=== PATIENT | male | born 1950 | race Caucasian/White ===

== ENCOUNTER → 2016-06-30 | Outpatient (CLI) | payer BC, OTHER ==
[~2016-06-30] MED LIST: ACT/45 PO; ALBU1AER9 INH; ATOR-24 PO; BIOT1CAP3; CHOL100010 PO; CHOL100027 PO; CIPR-255 PO; CMD5 PO; COEN100C7; CYAN100073; FLUT1INH3 PO; INSU1INJ23 SQ; INSUINJ SC; LIRA18IN SQ; LISI-461 PO; LISI-725 PO; LSN10 PO; LVNIS120 SQ; METF-384 PO; METR-163 PO; MULT-190 PO; MULT-513 PO; PANT40TA PO; PHN25X PO; PIMO2TAB PO; PRDFOPS OPB; SERT25TA PO; TPRSR/25 PO; VNTHFA/IN INH; WARF5TAB7 PO; [UNRECOGNIZED DRUG - CODE] PO
[2016-07-01 06:20] LABS: ESTIMATED AVERAGE GLUCOSE 192 mg/dl; HA1C FLAG Normal (Normal)
== END | disposition home or self-care (01) ==
LOC: C.LAB1850 14:40
PROVIDERS: ATTEND Nurse Practitioner Adult Health
DX: E11.9 Type 2 diabetes mellitus without complications (principal)

== ENCOUNTER → 2016-07-01 | Outpatient (CLI) | payer BC, OTHER ==
[2016-07-01 10:32] LABS: CHOLESTEROL/HDL RATIO 4.9
== END | disposition home or self-care (01) ==
LOC: C.LAB1850 09:08
PROVIDERS: ATTEND Family Medicine
DX: E78.5 Hyperlipidemia, unspecified (principal)

== ENCOUNTER → 2016-09-15 | Outpatient (CLI) | payer BC, OTHER ==
[~2016-09-15] MED LIST changes: +FURO-85 PO
[2016-09-15 18:15] LABS: ALT/SGPT 18 U/L (12-78); AMYLASE 62 U/L (25-115); AST/SGOT 11 U/L (15-37); BLOOD UREA NITROGEN 17 mg/dl (7-18); BUN/CREATININE RATIO 18.8 (10-20); CALCIUM 9.4 mg/dl (8.5-10.1); CARBON DIOXIDE 33 mmol/L (21-32); CHLORIDE 104 mmol/L (98-107); CREATININE 0.89 mg/dl (0.60-1.40); GLUCOSE 133 mg/dl (70-99); SODIUM 141 mmol/L (136-145)
[2016-09-15 18:17] LABS: ALB/GLOB RATIO 1.2 (0.9-2); ALKALINE PHOSPHATASE 89 U/L (45-117)
== END | disposition home or self-care (01) ==
LOC: C.LAB1850 16:27
PROVIDERS: ATTEND Internal Medicine Endocrinology, Diabetes & Metabolism
DX: E11.9 Type 2 diabetes mellitus without complications (principal); R10.9 Unspecified abdominal pain

== ENCOUNTER 2016-09-16 14:39 | Inpatient (IN) | payer BC, OTHER ==
[~2016-09-16] VITALS: Ht 188 cm; Wt 116.0 kg
[~2016-09-16 14:39] MED LIST changes: -ATOR-24 PO; -BIOT1CAP3; -CHOL100027 PO; -CIPR-255 PO; -CMD5 PO; -COEN100C7; -CYAN100073; -FLUT1INH3 PO; -FURO-85 PO; -INSU1INJ23 SQ; -LIRA18IN SQ; -LISI-461 PO; -LSN10 PO; -LVNIS120 SQ; -METF-384 PO; -METR-163 PO; -MULT-190 PO; -MULT-513 PO; -PANT40TA PO; -PHN25X PO; -PRDFOPS OPB; -SERT25TA PO; -TPRSR/25 PO; -VNTHFA/IN INH; -WARF5TAB7 PO; -[UNRECOGNIZED DRUG - CODE] PO
[2016-09-16] MEDS ORDERED: SODIUM CHLORIDE 0.9% 1000ML 1,000 ML IV STA (15:05)
--- NOTE | 2016-09-16 15:11 | EMERGENCY ROOM VISIT NOTE ---
History Report prepared by Perry: Jemma Aly Under the Supervision of: Dr. Rahul Johnson M.D. First contact with patient: 14:47 Chief Complaint: ABDOMINAL PAIN Stated Complaint: AB PAIN Nursing Triage Summary: PT HERE WITH ABD PAINS, RIGHT MORE THAN LEFT, WITH INCREASED BLOATING AND GAS X A FEW DAYS. PT STATES BECOMING WORSE. SOME NAUSEA. DENIES CONSTIPATION OR DIARRHEA. History of Present Illness The patient is a 66 year old male who presents to the Emergency Room with complaints of constant abdominal pain beginning a few days ago. The patient states that he has been having abdominal pain on both the right and left side with most of his pain being on the right. 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 He complains of bloating , gassiness, and nausea. He denies any vomiting, fever, constipation, and diarrhea. The patient reports that he has not had any changes in bowel movements. He nots that he is on Victoza. Source of History: patient Onset: a few days ago Position: abdomen Timing: constant Associated Symptoms: + nausea, No diarrhea, No fevers Note: He complains of bloating and gassiness. He denies any constipation. Review of Systems See HPI for pertinent positives & negatives. A total of 10 systems reviewed and were otherwise negative. Past Medical & Surgical Medical Problems: (1) Asthma (2) Diabetes (3) Hypertension (4) ITP (idiopathic thrombocytopenic purpura) (5) Pneumonia (6) Pulmonary embolism (7) sigmoid diverticulitis , spleen abscent (8) sigmoid diverticulitis , spleen abscent Surgical Problems: (1) History of cornea transplant (2) History of hernia surgery (3) History of knee replacement Family History Cancer Diabetes mellitus Heart disease Hypertension Social History Smoking Status: Never Smoker Alcohol Use: occasionally Drug Use: none Marital Status: Housing Status: lives with significant other Occupation Status: employed Current/Historical Medications Scheduled Atorvastatin (Lipitor), 40 MG PO DAILY Cholecalciferol (Vitamin D 1000 Unit), 1,000 INTER.UNIT PO DAILY Insulin Isophane (Human) (Humulin N Kwikpen), 18 UNITS SQ HS Liraglutide (Victoza), 1.8 MG SQ DAILY Lisinopril (Lisinopril), 10 MG PO DAILY Metformin Hcl (Glucophage), 1,000 MG PO BID Metoprolol Succinate (Metoprolol Succinate ER), 12.5 MG PO DAILY Multivitamins/Minerals (Mvi With Minerals), 1 TAB PO DAILY Pimozide (Orap), 4 MG PO QAM Prednisolone Acetate (Prednisolone Acetate), 1 DROPS OPB DAILY Scheduled PRN Albuterol Hfa (Ventolin Hfa), 2 PUFFS INH Q4 PRN for SOB/Wheezing Allergies Uncoded Allergies: SNAILS (Allergy, Severe, ANAPHYLAXIS, 09/16/16) Physical Exam Vital Signs Date Time Temp Pulse Resp B/P Pulse Ox O2 Delivery O2 Flow Rate FiO2 09/16/16 17:09 72 16 93 09/16/16 17:05 135/89 09/16/16 16:39 77 95 09/16/16 16:31 129/88 09/16/16 16:09 77 20 95 09/16/16 16:00 127/83 09/16/16 15:39 87 21 95 09/16/16 15:30 141/89 09/16/16 15:21 125/79 09/16/16 15:18 83 09/16/16 14:41 36.6 47 16 140/88 96 Room Air Physical Exam GENERAL: Patient is a healthy-appearing well-nourished HEAD: Normocephalic atraumatic EYES: Ocular movements intact pupils equal and react to light OROPHARYNX mucous membranes are moist no exudates present no erythema or edema present NECK: Supple no nuchal rigidity CHEST: Good equal expansion LUNGS: Clear and equal to auscultation CARDIAC: Normal S1 and S2 ABDOMEN: Soft, no guarding. Tender to the mid umbilicus area. BACK: No CVA tenderness EXTREMITIES: No pain upon palpation normal muscle strength in all groups no clubbing cyanosis or edema NEURO: Patient is following commands is answering questions appropriately. Alert and oriented x3 Cranial Nerves 2-12 grossly intact Medical Decision & Procedures ER Provider Diagnostic Interpretation: CT results as stated below per my review and radiologist interpretation: ABDOMEN AND PELVIS CT WITH IV AND ORAL CONTRAST FINDINGS: The lung bases are clear. No pneumoperitoneum. No pneumatosis. No suspicious lytic or blastic osseous lesions. There is an anterior abdominal wall mesh. Prior splenectomy. The liver, gallbladder, adrenal glands, and pancreas are unremarkable. No retroperitoneal lymphadenopathy. No hydronephrosis. There are 2 left renal hypodense lesions within the largest measuring 5.8 cm. These are consistent with cysts. There is also an exophytic 2.1 cm intermediate density lesion within the right kidney. This does not clearly represent a simple cyst. The bladder is unremarkable. Multiple colonic diverticula. Focal thickening within the proximal sigmoid colon with mild pericolonic fat stranding and an inflamed diverticulum. This is consistent with acute diverticulitis. No perforation or abscess at this time. No evidence for bowel obstruction. IMPRESSION: 1. Acute proximal sigmoid diverticulitis. No perforation or abscess. 2. No evidence for bowel obstruction. 3. A 2.1 cm lesion within the right kidney. This is incompletely characterized on this single phase study and may represent a hyperdense cyst or possibly a solid renal mass. Follow-up nonemergent renal ultrasound should be considered for further evaluation. 4. Splenectomy. Electronically signed by: Andres Weeks M.D. 09/16/2016 5:43 PM Dictated Date/Time: 09/16/2016 5:36 PM Laboratory Results 09/16/16 15:15 Red Blood Count 4.62, Mean Corpuscular Volume 89.4, Mean Corpuscular Hemoglobin 30.7, Mean Corpuscular Hemoglobin Concent 34.4, Mean Platelet Volume 10.5, Neutrophils (%) (Auto) 70.2, Lymphocytes (%) (Auto) 20.6, Monocytes (%) (Auto) 5.7, Eosinophils (%) (Auto) 2.9, Basophils (%) (Auto) 0.3, Neutrophils # (Auto) 8.15, Lymphocytes # (Auto) 2.40, Monocytes # (Auto) 0.66, Eosinophils # (Auto) 0.34, Basophils # (Auto) 0.04 09/16/16 15:15 Test 09/16/16 15:15 White Blood Count 11.63 K/uL (4.8-10.8) Red Blood Count 4.62 M/uL (4.7-6.1) Hemoglobin 14.2 g/dL (14.0-18.0) Hematocrit 41.3 % (42-52) Mean Corpuscular Volume 89.4 fL (80-100) Mean Corpuscular Hemoglobin 30.7 pg (25-34) Mean Corpuscular Hemoglobin Concent 34.4 g/dl (32-36) Platelet Count 118 K/uL (130-400) Mean Platelet Volume 10.5 fL (7.4-10.4) Neutrophils (%) (Auto) 70.2 % Lymphocytes (%) (Auto) 20.6 % Monocytes (%) (Auto) 5.7 % Eosinophils (%) (Auto) 2.9 % Basophils (%) (Auto) 0.3 % Neutrophils # (Auto) 8.15 K/uL (1.4-6.5) Lymphocytes # (Auto) 2.40 K/uL (1.2-3.4) Monocytes # (Auto) 0.66 K/uL (0.11-0.59) Eosinophils # (Auto) 0.34 K/uL (0-0.5) Basophils # (Auto) 0.04 K/uL (0-0.2) RDW Standard Deviation 43.3 fL (36.4-46.3) RDW Coefficient of Variation 13.3 % (11.5-14.5) Immature Granulocyte % (Auto) 0.3 % Immature Granulocyte # (Auto) 0.04 K/uL (0.00-0.02) Urine Color YELLOW Urine Appearance CLEAR (CLEAR) Urine pH 5.5 (4.5-7.5) Urine Specific Bow 1.013 (1.000-1.030) Urine Protein NEG (NEG) Urine Glucose (UA) 2+ (NEG) Urine Ketones NEG (NEG) Urine Occult Blood NEG (NEG) Urine Nitrite NEG (NEG) Urine Bilirubin NEG (NEG) Urine Urobilinogen NEG (NEG) Urine Leukocyte Esterase NEG (NEG) Anion Gap 9.0 mmol/L (3-11) Est Creatinine Clear Calc Drug Dose 100.8 ml/min Estimated GFR () 94.9 Estimated GFR (Non- 81.9 BUN/Creatinine Ratio 14.2 (10-20) Calcium Level 8.7 mg/dl (8.5-10.1) Total Bilirubin 0.5 mg/dl (0.2-1) Direct Bilirubin 0.1 mg/dl (0-0.2) Aspartate Amino Transf (AST/SGOT) 10 U/L (15-37) Alanine Aminotransferase (ALT/SGPT) 14 U/L (12-78) Alkaline Phosphatase 87 U/L (45-117) Total Protein 6.8 gm/dl (6.4-8.2) Albumin 3.5 gm/dl (3.4-5.0) Lipase 217 U/L (73-393) Labs reviewed by ED physician. Medications Administered Medications (Trade) Dose Ordered Sig/Jadon Route Start Time Stop Time Status Last Admin Dose Admin Sodium Chloride (Nss 1000ml) 1,000 ml @ 999 mls/hr Q1H1M STAT IV 09/16/16 15:05 09/16/16 16:05 DC 09/16/16 15:55 999 MLS/HR ED Course 1447: Past medical records reviewed. The patient was evaluated in room B5. A complete history and physical examination was performed. 1505: Sodium Chloride 1000 ml @ 999 mls/hr IV. 1748: Metronidazole 500mg IV, Zosyn IV 4.5gm IV. 175: I discussed the patient's case with Dr. Raphael of [facility], he has agreed to evaluate the patient for further management and care. 180: Upon reexamination the patient is doing well. I discussed results and treatment plan with the patient. He verbalizes agreement and understanding. I spoke with Dr. Raphael from the [facility] Hospitalist Service. The patient will be evaluated for further management. Medical Decision Differential diagnosis: Etiologies such as appendicitis, diverticulitis, PUD, biliary pathology, UTI, pancreatitis, obstruction, mesenteric ischemia, aortic pathology, infections, inflammatory bowel disease, renal colic, as well as others were entertained. This is a 66-year-old male who does not have a spleen who comes to emergency department complaining of abdominal pain. The patient does have an elevation in his blood cell count and is tender on examination. An IV was established, patient given normal saline bolus. The patient's CAT scan is concerning for diverticulitis. Because this patient does not have a spleen I did discuss the case with the hospitalist service who agreed to admit the patient. He was pancultured up and started on Zosyn as well as Flagyl. The patient was in agreement with the treatment plan. Consults Time Called: 1749 Consulting Physician: Dr. Raphael - [facility] Returned Call: 1751 I discussed the patient's case with Dr. Raphael of [facility], he has agreed to evaluate the patient for further management and care. Impression Primary Impression: Diverticulitis Additional Impression: Asplenia Scribe Attestation The scribe's documentation has been prepared under my direction and personally reviewed by me in its entirety. I confirm that the note above accurately reflects all work, treatment, procedures, and medical decision making performed by me. Departure Information Dispostion Being Evaluated By Hospitalist Referrals Abhi Rowell D.O.Int.Med. (PCP) Patient Instructions My [facility] Problem Qualifiers Primary Impression: Diverticulitis Diverticulitis site: unspecified part of intestinal tract Diverticulitis bleeding: unspecified bleeding status Diverticulitis complication: unspecified complication status Qualified Codes: K57.92 - Diverticulitis of intestine, part unspecified, without perforation or abscess without bleeding
[2016-09-16] MEDS ORDERED: CHOL100027 PO (15:13)
[2016-09-16] MEDS ORDERED: INSU1INJ23 SQ (15:13)
[2016-09-16] MEDS ORDERED: VNTHFA/IN INH (15:13)
[2016-09-16] MEDS ORDERED: TPRSR/25 PO (15:17)
[2016-09-16] MEDS ORDERED: LIRA18IN SQ (15:17)
[2016-09-16] MEDS ORDERED: LISI-461 PO (15:17)
[2016-09-16] MEDS ORDERED: PRDFOPS OPB (15:17)
[2016-09-16] MEDS ORDERED: MULT-513 PO (15:17)
[2016-09-16] MEDS ORDERED: OPTIRAY 320 IV PRN (15:30)
[2016-09-16 15:35] LABS: BASO % 0.3 %; BASO ABS # 0.04 K/uL (0-0.2); COMPLETE YES; EOS % 2.9 %; HEMATOCRIT 41.3 % (42-52); IG% 0.3 %; LYMPH % 20.6 %; MEAN CELL VOLUME 89.4 fL (80-100); MEAN CORPUSCULAR HEMOGLOBIN 30.7 pg (25-34); MEAN CORPUSCULAR HGB CONC 34.4 g/dl (32-36); MEAN PLATELET VOLUME 10.5 fL (7.4-10.4); MONO % 5.7 %; NEUT % 70.2 %; PLATELET COUNT 118 K/uL (130-400); RED BLOOD COUNT 4.62 M/uL (4.7-6.1); WHITE BLOOD COUNT 11.63 K/uL (4.8-10.8)
[2016-09-16 15:51] LABS: URINE APPEARANCE CLEAR (CLEAR); URINE BILIRUBIN NEG (NEG); URINE COLOR YELLOW; URINE NITRITE NEG (NEG); URINE PH 5.5 (4.5-7.5); URINE SPECIFIC GRAVITY 1.013 (1.000-1.030); UROBILINOGEN NEG (NEG)
[2016-09-16 15:55] LABS: BUN/CREATININE RATIO 14.2 (10-20); CALCIUM 8.7 mg/dl (8.5-10.1); CREATININE 0.95 mg/dl (0.60-1.40); POTASSIUM 3.7 mmol/L (3.5-5.1)
[2016-09-16 15:58] LABS: MANUAL MICROSCOPIC REQUIRED? NO; REVIEW REQ? NO
[2016-09-16] MEDS ORDERED: METF-384 PO (16:55)
[2016-09-16] MEDS ORDERED: ATOR-24 PO (16:55)
--- NOTE | 2016-09-16 17:44 | DIAGNOSTIC IMAGING REPORT ---
ABDOMEN AND PELVIS CT WITH IV AND ORAL CONTRAST CT DOSE: 1345.99 mGy.cm HISTORY: Pt c/o diffuse abd pain, bloating TECHNIQUE: Multiaxial CT images of the abdomen and pelvis were performed following the use of intravenous and oral contrast. COMPARISON STUDY: None. FINDINGS: The lung bases are clear. No pneumoperitoneum. No pneumatosis. No suspicious lytic or blastic osseous lesions. There is an anterior abdominal wall mesh. Prior splenectomy. The liver, gallbladder, adrenal glands, and pancreas are unremarkable. No retroperitoneal lymphadenopathy. No hydronephrosis. There are 2 left renal hypodense lesions within the largest measuring 5.8 cm. These are consistent with cysts. There is also an exophytic 2.1 cm intermediate density lesion within the right kidney. This does not clearly represent a simple cyst. The bladder is unremarkable. Multiple colonic diverticula. Focal thickening within the proximal sigmoid colon with mild pericolonic fat stranding and an inflamed diverticulum. This is consistent with acute diverticulitis. No perforation or abscess at this time. No evidence for bowel obstruction. IMPRESSION: 1. Acute proximal sigmoid diverticulitis. No perforation or abscess. 2. No evidence for bowel obstruction. 3. A 2.1 cm lesion within the right kidney. This is incompletely characterized on this single phase study and may represent a hyperdense cyst or possibly a solid renal mass. Follow-up nonemergent renal ultrasound should be considered for further evaluation. 4. Splenectomy. Electronically signed by: Andres Weeks M.D. 09/16/2016 5:43 PM Dictated Date/Time: 09/16/2016 5:36 PM
[2016-09-16] MEDS ORDERED: PIPERACILLIN/TAZOBACTAM 4.5 GM/100ML D5W IV STA (17:48)
[2016-09-16] MEDS ORDERED: METRONIDAZOLE 500MG / 100ML NSS IV STA (17:48)
[2016-09-16] MEDS ORDERED: ZOLPIDEM TARTRATE 5 MG TAB PO PRN (18:30)
[2016-09-16] MEDS ORDERED: POLYETHYLENE (MIRALAX) 17 GM PACK PO PRN (18:30)
[2016-09-16] MEDS ORDERED: ERTAPENEM 1 GM ADDVIAL IV ONE (18:30)
[2016-09-16] MEDS ORDERED: MAGNESIUM HYDROXIDE SUSP 30 ML UDC PO PRN (18:30)
[2016-09-16] MEDS ORDERED: ONDANSETRON INJ 2 MG/ML 2 ML VIAL IV PRN (18:30)
[2016-09-16] MEDS ORDERED: ENOXAPARIN 40 MG/0.4 ML SYR SQ SCH (18:30)
[2016-09-16] MEDS ORDERED: ACETAMINOPHEN 325 MG TAB PO PRN (18:30)
[2016-09-16] MEDS ORDERED: ALBUTEROL HFA 8 GM INHALER INH PRN (18:30)
[2016-09-16] MEDS ORDERED: ALUMINUM/MAGNESIUM/SIMETH (MAALOX MAX) 30 ML UDC PO PRN (18:30)
[2016-09-16] MEDS ORDERED: PHARMACY GLYCEMIC MGMT CONSULT PRN (18:40)
[2016-09-16] MEDS ORDERED: GLUCOSE 40% GEL 15 GM TUBE PO PRN (18:45)
[2016-09-16] MEDS ORDERED: GLUCAGON FOR INJ 1 MG VIAL SQ PRN (18:45)
[2016-09-16] MEDS ORDERED: DEXTROSE 50% 50 ML SYR IV PRN (18:45)
[2016-09-16] MEDS ORDERED: GLUCOSE 10 TABS/TUBE PO PRN (18:45)
[2016-09-16 18:51] VITALS: O2SAT 94
--- NOTE | 2016-09-16 18:51 | Progress Note ---
Progress Note Date of Service September 16, 2016. Progress Note sigmoid diverticulitis , spleen absent, [id number]
[2016-09-16 19:40] VITALS: BP 165/94; PULSE 68; TEMP 36.7; Ht 188 cm; Wt 116.0 kg
--- NOTE | 2016-09-16 20:42 | HISTORY & PHYSICAL EXAMINATION ---
DATE OF ADMISSION: 09/16/2016 This is a level 2 inpatient admission, 28 minutes. CHIEF COMPLAINT: Right middle and lower abdominal pain associated with increased bloating for several days, getting worse, associated with nauseation. HISTORY OF PRESENT ILLNESS: The patient is a 66-year-old white male with a significant past medical history of asthma, diabetes, hypertension and idiopathic thrombocytopenic purpura, pneumonia, PE, sigmoid diverticulitis, history of corneal transplantation and knee replacement coming to the hospital Emergency Department because of the above chief complaint. The patient reported constant abdominal pain a few days ago. It has been getting worse, associated with nauseation, no vomiting. History of splenectomy after having ITP, history of diverticulitis and 2 hernia repairs. He reported that he has bloating and nauseation. The patient denied fever or chills. Denied constipation or diarrhea. Denied cough, sputum or shortness of breath. Denied chest pain, palpitation or lower extremity swelling. Denied facial droop, slurry speeches or local weakness. Denied skin rashes. PAST MEDICAL HISTORY: Like I mentioned above. PAST SURGICAL HISTORY: Like I mentioned above. FAMILY HISTORY: Include; cancer, diabetes, hypertension and heart disease. SOCIAL HISTORY: Denied tobacco abuse disorder, alcohol abuse disorder and illicit drug abuse. CURRENT MEDICATIONS: Lipitor 40 mg p.o. daily, vitamin D 1000 international units p.o. daily, NPH 18 units subQ at bedtime, Victoza 1.8 mg subQ daily, lisinopril 10 mg p.o. daily, metformin 1000 mg p.o. b.i.d., metoprolol 12.5 mg p.o. daily, multiple vitamin 1 tab p.o. daily, pimozide 4 mg p.o. q.a.m., prednisone 1 drop OPB daily and albuterol 2 puffs inhaled q. 4 hours p.r.n. for shortness of breath or wheezing. ALLERGIES: TO SNAILS. PHYSICAL EXAMINATION: VITAL SIGNS: Temperature is 36.6, pulse 47 currently is 72, respiratory rate 16 and pulse ox was 96% on room air. GENERAL: The patient is a white male, awake, alert and orientated, conversational and follows all commands with obesity. HEAD: Normocephalic. EYES: Pupils are equal and round, responds to light. EARS: Normal. NOSE: Normal. NECK: Supple. Thyroid, no enlargement. Trachea is midline. HEART: Regular rhythm. S1, S2. LUNGS: Decreased breathing sounds. There were no wheezing, rhonchi or crackles. ABDOMEN: Soft, mid lower abdomen deep tenderness. No rebound. No guarding. Mildly tender in the mid umbilical area. BACK: Bilateral CVA was nontender. EXTREMITIES: Lower extremities, normal strength. There was no clubbing, cyanosis or edema. NEUROLOGIC: Cranial nerves II-XII were intact. There were no local deficits. IMAGING STUDIES: Abdominal CT studies show acute proximal sigmoid diverticulitis. No abscess. No evidence of bowel obstruction. There was a 2.1 cm lesion in the right kidney. The patient had a splenectomy. LABORATORY STUDIES: WBC 11.6, hemoglobin 14, platelets 118. BUN 13 and ASSESSMENT AND PLAN: A 66-year-old white male, with the problems as below: 1. Proximal sigmoid diverticulitis. 2. History of splenectomy. 3. History of thrombotic thrombocytopenic purpura. 4. A 2.1 cm lesion in the right kidney. 5. Diabetes. 6. Hypertension. 7. Asthma. 8. History of pulmonary embolism. PLAN: 1. Because the patient has a history of splenectomy, he is immunocompromised. In that regard, we are not able to assess the severity of the diverticulitis. He may have sepsis but does not spiking fever, Therefore, I will check an ESR and CRP. A blood culture has been sent by the Emergency Room. ED physician has started metronidazole and Zosyn IV. I would say Invanz would be good enough, so I started Invanz IV infusion. We will keep patient n.p.o. except for medication and IV fluid infusion. We will follow up very closely for any signs of worsening abdominal pain or diverticulitis. We will follow on clinical response. For diabetes, we will check hemoglobin A1c. Because he is n.p.o. now, we will cut half dose of NPH, start sliding scales and talk to pharmacy about this. 2. For other medical conditions such as hypertension and dyslipidemia, we will continue current medications. DVT prophylaxis because the patient has a history of ITP. Current platelet level is on the lower side. I will give SCD for DVT prophylaxis. I will not order heparin product for now. GI prophylaxis is covered. [facility]
[2016-09-16] MEDS ORDERED: INSULIN HUMAN NPH SC SCH (21:00)
[2016-09-16] MEDS ORDERED: INSULIN GLARGINE SOLOSTAR 100 UNITS/ML 3 ML PEN SC ONE ×2 (21:00→22:00)
[2016-09-16] MEDS ORDERED: INSULIN ASPART 100 UNITS/ML 3 ML PEN SC SCH (21:00)
[2016-09-16] MEDS: NSS + 20MEQ KCL 1000ML 1,000 ML IV SCH (21:46)
--- NOTE | 2016-09-16 22:03 | Pharmacy Progress Note ---
Glycemic Control Intl Consult Date of Service September 16, 2016. Scope Glycemic Pharmacist consulted by Dr Raphael on 09/16/16 for glycemic control and to write orders per [facility] inpatient glycemic control protocol Objective Weight (Kilograms): 116.000 Accuchecks BSG (last 24hrs): Test 09/16/16 15:15 09/16/16 21:25 Random Glucose 238 mg/dl (70-99) Bedside Glucose 114 mg/dl (70-99) Laboratory Data (last 24hrs) Test 09/16/16 15:15 Anion Gap 9.0 mmol/L BUN/Creatinine Ratio 14.2 Blood Urea Nitrogen 13 mg/dl Creatinine 0.95 mg/dl Potassium Level 3.7 mmol/L Sodium Level 143 mmol/L White Blood Count 11.63 K/uL Red Blood Count 4.62 M/uL Hemoglobin 14.2 g/dL Hematocrit 41.3 % Mean Corpuscular Volume 89.4 fL Mean Corpuscular Hemoglobin 30.7 pg Mean Corpuscular Hemoglobin Concent 34.4 g/dl Platelet Count 118 K/uL Mean Platelet Volume 10.5 fL Neutrophils (%) (Auto) 70.2 % Lymphocytes (%) (Auto) 20.6 % Monocytes (%) (Auto) 5.7 % Eosinophils (%) (Auto) 2.9 % Basophils (%) (Auto) 0.3 % Neutrophils # (Auto) 8.15 K/uL Lymphocytes # (Auto) 2.40 K/uL Monocytes # (Auto) 0.66 K/uL Eosinophils # (Auto) 0.34 K/uL Basophils # (Auto) 0.04 K/uL HbA1c Test 09/16/16 15:15 Recent Pertinent Medications Outpatient Anti-diabetic Regimen: * Insulin NPH 18 units HS * Victoza 1.8mg SC daily * Metformin 1000mg BID * A1c = 8.3 % (06/30/16), new HbA1c pending for 09/16/16 Risk Factors for Insulin Resistance: * Infection: Invanz 1g IV q24; received Zosyn and Flagyl x 1 doses in the ED * IVF: NS+KCl 20mEq @ 100 mL/hr * Diet: NPO Assessment & Plan ASSESSMENT: * ADA & AACE recommend a goal blood sugar range 140-180 mg/dl for the majority of critically ill & non-critically ill patients. However, more stringent targets may be selected in individual cases. * Current HbA1c pending, but diabetes seemed not at goal upon last check 2016. Given his NPO status, will need reduce his outpatient basal regimen by at least 50%. However, since his BSG decr' from 238 to 114 without any insulin , will further reduce and only give 25% of his outpatient basal regimen tonight. Novolog correction scale based on his weight. May need to loosen as appropriate. PLAN FOR INPATIENT GLYCEMIC CONTROL: * Holding outpatient oral diabetes medications * Basal insulin with LANTUS 4 units SQ x 1 * Correctional Insulin with NOVOLOG / REGULAR per scale ACHS or Q6hrs while NPO * Goal Range: Low 120 mg/dL - High 160 mg/dL * Correction Factor: 20 mg/dL/unit * Nutritional / Prandial insulin per carb ratio of 1 unit per 0 grams CHO consumed * Please note that the plan above was derived based on current level of insulin resistance and hospital stress. These recommendations are appropriate for inpatient admission only. Plan of care upon discharge will need to be reassessed to avoid potential outpatient hypo/hyperglycemia. Thank you.
[2016-09-16] MEDS: ERTAPENEM IV 1 GM in SODIUM CHLOR 0.9% AD-VAN 50ML 50 ML IV SCH (22:10)
[2016-09-17 00:58] VITALS: BP 136/83; PULSE 70; TEMP 36.4; O2SAT 94
[2016-09-17] MEDS: INSULIN ASPART 100 UNITS/ML 3 ML PEN SC SCH ×5 (06:00→22:16)
[2016-09-17] MEDS: NSS + 20MEQ KCL 1000ML 1,000 ML IV SCH ×2 (06:04→19:26)
[2016-09-17 07:19] LABS: ESTIMATED AVERAGE GLUCOSE 151 mg/dl; HA1C FLAG Normal (Normal)
[2016-09-17 07:23] VITALS: BP 154/82; PULSE 65; TEMP 36.6; O2SAT 93
[2016-09-17] MEDS: PrednisoLONE ACET 1% OP SUSP 5 ML BTL OPB SCH (08:13)
[2016-09-17] MEDS: METOPROLOL SUCC 25MG EXT REL TAB PO SCH (08:13)
[2016-09-17] MEDS: CHOLECALCIFEROL 1000 INTER.UNIT TAB PO SCH (08:14)
[2016-09-17] MEDS: ATORVASTATIN 40 MG TAB PO SCH (08:14)
[2016-09-17] MEDS: LISINOPRIL 10 MG TAB PO SCH (08:15)
[2016-09-17] MEDS: CEROVITE ADV FORMULA TAB PO SCH (08:15)
[2016-09-17] MEDS ORDERED: NON-FORMULARY MEDICATION (Liraglutide (Victoza) 1.8 MG) SQ SCH (09:00)
[2016-09-17 10:13] LABS: BASO % 0.5 %; BASO ABS # 0.04 K/uL (0-0.2); COMPLETE YES; EOS % 3.6 %; HEMATOCRIT 43.2 % (42-52); IG% 0.2 %; LYMPH % 26.4 %; LYMPH ABS # 2.33 K/uL (1.2-3.4); MEAN CELL VOLUME 89.8 fL (80-100); MEAN CORPUSCULAR HEMOGLOBIN 30.4 pg (25-34); MEAN CORPUSCULAR HGB CONC 33.8 g/dl (32-36); MEAN PLATELET VOLUME 9.9 fL (7.4-10.4); MONO % 6.9 %; NEUT % 62.4 %; PLATELET COUNT 108 K/uL (130-400); RED BLOOD COUNT 4.81 M/uL (4.7-6.1); WHITE BLOOD COUNT 8.83 K/uL (4.8-10.8)
--- NOTE | 2016-09-17 12:04 | Gastrointestinal Consultation ---
Gastrointestinal Consultation Date of Consultation: September 17, 2016 History of Present Illness Patient is a 66 year old male who presented to the ER yesterday with a 2 day hx of generalized but worse left lower quadrant abdominal pain. Pain was sharp in nature and colicky in quality. Similiar to pain about 15 years ago upon first dx of sigmoid diverticulitis. No fevers, chills, blood in stool, or diarrhea. No hx to suggest ischemia. Upon presentation to the ER he underwent CT scanning that revealed proximal sigmoid diverticulitis. He was started on ABX with Invanz, and given pain control. Today he feels well, with no to minimal pain only located in the llq. Passing flatus. No fevers and relaxing comfortable. WBC count has declined and last colonoscopy was several years ago, but has had self reported polyps in past. Still NPO Past Medical/Surgical History Medical Problems: (1) Asplenia Status: Acute (2) Diverticulitis Status: Acute Family History Cancer Diabetes mellitus Heart disease Hypertension Social History Smoking Status: Never Smoker Alcohol Use: occasionally Drug Use: none Marital Status: Housing Status: lives with significant other Occupation Status: employed Allergies Uncoded Allergies: SNAILS (Allergy, Severe, ANAPHYLAXIS, 09/16/16) Current Medications Home Meds and Scripts Medications Dose Route/Sig Max Daily Dose Days Date Category Mvi With Minerals (Multivitamins/Minerals) Tab 1 Tab PO DAILY 09/16/16 Reported Victoza (Liraglutide) 18 Mg/3 Ml Inj 1.8 Mg SQ DAILY 09/16/16 Reported Metoprolol Succinate ER (Metoprolol Succinate) 25 Mg Tabcr 12.5 Mg PO DAILY 09/16/16 Reported Prednisolone Acetate 75 Drops/5 Ml Susp 1 Drops OPB DAILY 09/16/16 Reported Lisinopril 10 Mg Tab 10 Mg PO DAILY 09/16/16 Reported Humulin N Kwikpen (Insulin Isophane (Human)) 100 Unit/Ml Inj 18 Units SQ HS 09/16/16 Reported Ventolin Hfa (Albuterol) 200 Puffs/92212 Mcg Aers 2 Puffs INH Q4 PRN 09/16/16 Reported Vitamin D 1000 Unit (Cholecalciferol) 1,000 Unit Cap 1,000 Inter.unit PO DAILY 09/16/16 Reported Glucophage (Metformin Hcl) 1,000 Mg Tab 1,000 Mg PO BID 12/18/13 Reported Lipitor (Atorvastatin Calcium) 40 Mg Tab 40 Mg PO DAILY 12/18/13 Reported Orap (Pimozide) 2 Mg Tab 4 Mg PO QAM 12/18/13 Reported Review of Systems Constitutional: No chills, No fatigue, No fever, No problem reported, No see HPI, No sweats, No weakness, No weight loss Eyes: No diplopia, No discharge, No eye pain, No problem reported, No redness, No see HPI, No worsening of vision ENT: No dental problems, No hearing loss, No nasal symptoms, No pain on swallowing, No problem reported, No see HPI, No sore throat, No tinnitus, No trouble swallowing, No unusual epistaxis Respiratory: No cough, No dyspnea at rest, No dyspnea on exertion, No hemoptysis, No problem reported, No see HPI, No shortness of breath, No sputum, No wheezing Cardiac: No PND, No chest pain, No claudication, No edema, No orthopnea, No palpitations, No problem reported, No see HPI Abdomen: + see HPI Musculoskeletal: No calf pain, No joint pain, No muscle pain, No problem reported, No see HPI, No swelling Male : No dysuria, No hematuria, No incontinence, No nocturia more than once/ night, No problem reported, No see HPI, No sexual dysfunction, No slowing stream , No urinary frequency Physical Exam Date Time Temp Pulse Resp B/P Pulse Ox O2 Delivery O2 Flow Rate FiO2 09/17/16 08:10 Room Air 09/17/16 07:23 36.6 65 17 154/82 93 Room Air 09/17/16 00:58 36.4 70 18 136/83 94 Room Air 09/17/16 00:35 Room Air 09/16/16 19:44 Room Air 09/16/16 19:40 36.7 68 16 165/94 Room Air 09/16/16 18:51 73 142/84 94 09/16/16 17:09 72 16 93 09/16/16 17:05 135/89 09/16/16 16:39 77 95 09/16/16 16:31 129/88 09/16/16 16:09 77 20 95 09/16/16 16:00 127/83 09/16/16 15:39 87 21 95 09/16/16 15:30 141/89 09/16/16 15:21 125/79 09/16/16 15:18 83 09/16/16 14:41 36.6 47 16 140/88 96 Room Air General Appearance: WD/WN Eyes: normal inspection ENT: normal ENT inspection Neck: supple Respiratory/Chest: chest non-tender, lungs clear Cardiovascular: regular rate, rhythm Abdomen: normal bowel sounds, soft, + pertinent finding (minimal tenderness in the llq) Extremities: normal range of motion Neurologic/Psych: input output clerk II-XII nml as tested Laboratory Results Last 24 Hours Test 09/16/16 15:15 09/16/16 21:25 09/17/16 00:35 09/17/16 06:02 White Blood Count 11.63 K/uL Red Blood Count 4.62 M/uL Hemoglobin 14.2 g/dL Hematocrit 41.3 % Mean Corpuscular Volume 89.4 fL Mean Corpuscular Hemoglobin 30.7 pg Mean Corpuscular Hemoglobin Concent 34.4 g/dl Platelet Count 118 K/uL Mean Platelet Volume 10.5 fL Neutrophils (%) (Auto) 70.2 % Lymphocytes (%) (Auto) 20.6 % Monocytes (%) (Auto) 5.7 % Eosinophils (%) (Auto) 2.9 % Basophils (%) (Auto) 0.3 % Neutrophils # (Auto) 8.15 K/uL Lymphocytes # (Auto) 2.40 K/uL Monocytes # (Auto) 0.66 K/uL Eosinophils # (Auto) 0.34 K/uL Basophils # (Auto) 0.04 K/uL RDW Standard Deviation 43.3 fL RDW Coefficient of Variation 13.3 % Immature Granulocyte % (Auto) 0.3 % Immature Granulocyte # (Auto) 0.04 K/uL Erythrocyte Sedimentation Rate 9 mm/hr Urine Color YELLOW Urine Appearance CLEAR Urine pH 5.5 Urine Specific [place] 1.013 Urine Protein NEG Urine Glucose (UA) 2+ Urine Ketones NEG Urine Occult Blood NEG Urine Nitrite NEG Urine Bilirubin NEG Urine Urobilinogen NEG Urine Leukocyte Esterase NEG Sodium Level 143 mmol/L Potassium Level 3.7 mmol/L Chloride Level 106 mmol/L Carbon Dioxide Level 28 mmol/L Anion Gap 9.0 mmol/L Blood Urea Nitrogen 13 mg/dl Creatinine 0.95 mg/dl Est Creatinine Clear Calc Drug Dose 100.8 ml/min Estimated GFR () 94.9 Estimated GFR (Non- 81.9 BUN/Creatinine Ratio 14.2 Random Glucose 238 mg/dl Estimated Average Glucose 151 mg/dl Hemoglobin A1c 6.9 % Calcium Level 8.7 mg/dl Total Bilirubin 0.5 mg/dl Direct Bilirubin 0.1 mg/dl Aspartate Amino Transf (AST/SGOT) 10 U/L Alanine Aminotransferase (ALT/SGPT) 14 U/L Alkaline Phosphatase 87 U/L C-Reactive Protein 4.11 mg/dl Total Protein 6.8 gm/dl Albumin 3.5 gm/dl Lipase 217 U/L Procalcitonin < 0.05 ng/ml Bedside Glucose 114 mg/dl 125 mg/dl 132 mg/dl Test 09/17/16 09:55 White Blood Count 8.83 K/uL Red Blood Count 4.81 M/uL Hemoglobin 14.6 g/dL Hematocrit 43.2 % Mean Corpuscular Volume 89.8 fL Mean Corpuscular Hemoglobin 30.4 pg Mean Corpuscular Hemoglobin Concent 33.8 g/dl Platelet Count 108 K/uL Mean Platelet Volume 9.9 fL Neutrophils (%) (Auto) 62.4 % Lymphocytes (%) (Auto) 26.4 % Monocytes (%) (Auto) 6.9 % Eosinophils (%) (Auto) 3.6 % Basophils (%) (Auto) 0.5 % Neutrophils # (Auto) 5.51 K/uL Lymphocytes # (Auto) 2.33 K/uL Monocytes # (Auto) 0.61 K/uL Eosinophils # (Auto) 0.32 K/uL Basophils # (Auto) 0.04 K/uL RDW Standard Deviation 43.2 fL RDW Coefficient of Variation 13.2 % Immature Granulocyte % (Auto) 0.2 % Immature Granulocyte # (Auto) 0.02 K/uL Impression Patient is a 66 year old male who presents with 2nd lifetime episode of uncomplicated diverticulitis. Plan Doing well on current ABX therapy. No signs of worsening, ok to start liquid diet. Continue IV abx until can reliably take PO. Advance diet as tolerated I will arrange f/u colonoscopy in 4-6 wks.
--- NOTE | 2016-09-17 14:15 | Pharmacy Progress Note ---
Glycemic Control: Progress Nt Date of Service September 17, 2016. Scope Glycemic Pharmacist consulted by Dr Raphael on 09/16/16 for glycemic control and to write orders per [facility] inpatient glycemic control protocol. Objective Accuchecks BSG (last 24hrs): Test 09/16/16 15:15 09/16/16 21:25 09/17/16 00:35 09/17/16 06:02 Random Glucose 238 mg/dl (70-99) Bedside Glucose 114 mg/dl (70-99) 125 mg/dl (70-99) 132 mg/dl (70-99) Laboratory Data (last 24hrs) Test 09/16/16 15:15 09/17/16 09:55 Anion Gap 9.0 mmol/L BUN/Creatinine Ratio 14.2 Blood Urea Nitrogen 13 mg/dl Creatinine 0.95 mg/dl Hemoglobin A1c 6.9 % Potassium Level 3.7 mmol/L Sodium Level 143 mmol/L White Blood Count 11.63 K/uL 8.83 K/uL Red Blood Count 4.62 M/uL 4.81 M/uL Hemoglobin 14.2 g/dL 14.6 g/dL Hematocrit 41.3 % 43.2 % Mean Corpuscular Volume 89.4 fL 89.8 fL Mean Corpuscular Hemoglobin 30.7 pg 30.4 pg Mean Corpuscular Hemoglobin Concent 34.4 g/dl 33.8 g/dl Platelet Count 118 K/uL 108 K/uL Mean Platelet Volume 10.5 fL 9.9 fL Neutrophils (%) (Auto) 70.2 % 62.4 % Lymphocytes (%) (Auto) 20.6 % 26.4 % Monocytes (%) (Auto) 5.7 % 6.9 % Eosinophils (%) (Auto) 2.9 % 3.6 % Basophils (%) (Auto) 0.3 % 0.5 % Neutrophils # (Auto) 8.15 K/uL 5.51 K/uL Lymphocytes # (Auto) 2.40 K/uL 2.33 K/uL Monocytes # (Auto) 0.66 K/uL 0.61 K/uL Eosinophils # (Auto) 0.34 K/uL 0.32 K/uL Basophils # (Auto) 0.04 K/uL 0.04 K/uL HbA1c: Test 09/16/16 15:15 Hemoglobin A1c 6.9 % (4.5-5.6) H Recent Pertinent Medications Outpatient Anti-diabetic Regimen: * Insulin NPH 18 units SQ HS * Victoza 1.8mg SQ daily * Metformin 1000mg PO BID * A1c = 8.3 % 06/2016 --> 6.9 09/2016 The patient is currently receiving: * Basal insulin: * Lantus 4 units SQ x 1 dose on 09/16 in the PM * Bolus Insulin: * NovoLog SQ AC/HS - Goal Range: Low 120 mg/dL - High 160 mg/dL - Correction Factor: 20 mg/dL/unit - Carb ratio of 1 unit per -- grams CHO consumed * Other Agents: * held on admission Risk Factors for Insulin Resistance: * Infection: Diverticulitis, receiving ertapenem IV - day #2 * IVF: NSS+20mEq KCl @ 100mL/hr * Diet: NPO --> Clears this afternoon Assessment & Plan ASSESSMENT: 09/16/16 * ADA & AACE recommend a goal blood sugar range 140-180 mg/dl for the majority of critically ill & non-critically ill patients. * Current HbA1c pending, but diabetes seemed not at goal upon last check 2016. Given his NPO status, will need reduce his outpatient basal regimen by at least 50%. However, since his BSG decr' from 238 to 114 without any insulin , will further reduce and only give 25% of his outpatient basal regimen tonight. NovoLog correction scale based on his weight. May need to loosen as appropriate. 09/17/16 * BSGs have been very well controlled over the past 24 hours with minimal insulin administered (no NovoLog required) * Diet has been advanced - expect insulin needs to increase in response to increase in PO intake * schedule Lantus dose to account for this * NovoLog parameters * not yet able to be evaluated (none given), however will increase goal range based on ADA recommendations * add carb ratio (very conservatively) since diet is now ordered. PLAN FOR INPATIENT GLYCEMIC CONTROL: * Basal insulin: * Lantus SQ q HS - 0 units if BSG is less than 100mg/dL - 5 units if BSG is 100-140mg/dL - 7 units if BSG is 140-180mg/dL - 10 units if BSG is above 180mg/dL * Bolus insulin: * NovoLog SQ AC and HS - CF: 20mg/dL/unit (based on a stress of 2) - CR: 1 unit per 10 g of CHO consumed (based on a stress of 1-2) - Goal: 140-180mg/dL (per ADA recommendations) * Other diabetic medications: * continue to hold metformin and liraglutide * A1c - current * add to discharge instructions RECOMMENDATIONS FOR DISCHARGE: * Based on A1c, Mr. Candelario can likely continue his home regimen at discharge. * Please note that the plan above was derived based on current level of insulin resistance and hospital stress. These recommendations are appropriate for inpatient admission only. Plan of care upon discharge will need to be reassessed to avoid potential outpatient hypo/hyperglycemia. Thank you.
[2016-09-17] MEDS ORDERED: NURSING VERBAL MED ORDER ONE (15:30)
[2016-09-17] MEDS: ALBUTEROL HFA 8 GM INHALER INH SCH (19:00)
[2016-09-17] MEDS: ERTAPENEM IV 1 GM in SODIUM CHLOR 0.9% AD-VAN 50ML 50 ML IV SCH (20:39)
[2016-09-17] MEDS: FLUTICASONE HFA 220 MCG INHALER INH SCH (20:40)
--- NOTE | 2016-09-17 20:41 | Progress Note ---
Subjective Date of Service: September 17, 2016. Subjective Pt evaluation today including: conversation w/ patient, conversation w/ family (, at bedside), physical exam, chart review, lab review, review of studies ( CT abd/pelvis), conversation w/ virtualization consultant (GI, gen surg), review of inpatient medication list Pain: LLQ, suprapubic region - improving PO Intake: tolerating clears Voiding: no voiding problems no nausea no emesis feels better reports ongoing asthma symptoms for a few months no albuterol use, however reports nocturnal cough 1-2 times/week frequent daytime cough/wheeze, however last episode of diverticulitis - 15 years ago Problem List Medical Problems: (1) Asplenia Status: Acute (2) Diverticulitis Status: Acute Review of Systems Constitutional: No chills, No fever Respiratory: No dyspnea on exertion, No shortness of breath Cardiac: No chest pain Abdomen: + pain, + see HPI Objective Vital Signs Date Time Temp Pulse Resp B/P Pulse Ox O2 Delivery O2 Flow Rate FiO2 09/17/16 08:10 Room Air 09/17/16 07:23 36.6 65 17 154/82 93 Room Air 09/17/16 00:58 36.4 70 18 136/83 94 Room Air 09/17/16 00:35 Room Air Physical Exam General Appearance: no apparent distress ENT: pharynx normal Neck: no JVD Respiratory/Chest: no respiratory distress, no accessory muscle use, + wheezing (end-exp), + pertinent finding (airation fair) Cardiovascular: regular rate, rhythm, no gallop, no murmur Abdomen: normal bowel sounds, soft, no organomegaly, + tenderness (LLQ) Extremities: no pedal edema Neurologic/Psychiatric: alert, oriented x 3 Laboratory Results Last 24 Hours Test 09/16/16 21:25 09/17/16 00:35 09/17/16 06:02 09/17/16 09:55 Bedside Glucose 114 mg/dl 125 mg/dl 132 mg/dl White Blood Count 8.83 K/uL Red Blood Count 4.81 M/uL Hemoglobin 14.6 g/dL Hematocrit 43.2 % Mean Corpuscular Volume 89.8 fL Mean Corpuscular Hemoglobin 30.4 pg Mean Corpuscular Hemoglobin Concent 33.8 g/dl Platelet Count 108 K/uL Mean Platelet Volume 9.9 fL Neutrophils (%) (Auto) 62.4 % Lymphocytes (%) (Auto) 26.4 % Monocytes (%) (Auto) 6.9 % Eosinophils (%) (Auto) 3.6 % Basophils (%) (Auto) 0.5 % Neutrophils # (Auto) 5.51 K/uL Lymphocytes # (Auto) 2.33 K/uL Monocytes # (Auto) 0.61 K/uL Eosinophils # (Auto) 0.32 K/uL Basophils # (Auto) 0.04 K/uL RDW Standard Deviation 43.2 fL RDW Coefficient of Variation 13.2 % Immature Granulocyte % (Auto) 0.2 % Immature Granulocyte # (Auto) 0.02 K/uL Test 09/17/16 12:10 09/17/16 17:09 Bedside Glucose 123 mg/dl 162 mg/dl Assessment and Plan 66yo male: 1. acute sigmoid diverticulitis - improved. Cont current IV abx and IVF. Appreciate GI consultation. Agree w/ outpatient colonoscopy in 6-8 weeks. 2. asthma - by history has, at least, mild persistent asthma. add flovent 220mcg, 1 puff BID add albuterol q6h 3. right renal cyst/mass - will need outpatient f/u with urology; I informed pt and his about this incidental finding on imaging. 4. HTN - controlled w/ outpatient meds. 5. 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 Platelet count is at baseline. 6. T2DM - control acceptable for now. 7. h/o PE - noted. 8. DVT proph - SCDs due to low platelets. 9. FEN - cont fluids; clears; lytes in am. Continued [facility] stay due to: inadequate po fluid intake, multiple IV medications needed Discharge planning: home
[2016-09-17] MEDS ORDERED: INSULIN GLARGINE SOLOSTAR 100 UNITS/ML 3 ML PEN SC SCH (21:00)
[2016-09-17 22:58] VITALS: BP 138/88; PULSE 69; TEMP 36.4; O2SAT 95
[2016-09-18] MEDS: FLUTICASONE HFA 220 MCG INHALER INH SCH ×2 (00:28→08:45)
[2016-09-18] MEDS: ALBUTEROL HFA 8 GM INHALER INH SCH ×4 (00:28→11:50)
[2016-09-18] MEDS: NSS + 20MEQ KCL 1000ML 1,000 ML IV SCH ×2 (03:08→12:53)
[2016-09-18 07:55] VITALS: BP 128/79; PULSE 66; TEMP 36.6; O2SAT 94
[2016-09-18] MEDS: INSULIN ASPART 100 UNITS/ML 3 ML PEN SC SCH ×3 (08:44→18:01)
[2016-09-18] MEDS: CEROVITE ADV FORMULA TAB PO SCH (08:45)
[2016-09-18] MEDS: PrednisoLONE ACET 1% OP SUSP 5 ML BTL OPB SCH (08:45)
[2016-09-18] MEDS: ATORVASTATIN 40 MG TAB PO SCH (08:45)
[2016-09-18] MEDS: METOPROLOL SUCC 25MG EXT REL TAB PO SCH (08:46)
[2016-09-18] MEDS: CHOLECALCIFEROL 1000 INTER.UNIT TAB PO SCH (08:47)
[2016-09-18] MEDS: LISINOPRIL 10 MG TAB PO SCH (08:47)
[2016-09-18 10:08] LABS: HEMATOCRIT 39.1 % (42-52); MEAN CELL VOLUME 89.7 fL (80-100); MEAN CORPUSCULAR HEMOGLOBIN 30.7 pg (25-34); MEAN CORPUSCULAR HGB CONC 34.3 g/dl (32-36); RED BLOOD COUNT 4.36 M/uL (4.7-6.1); WHITE BLOOD COUNT 6.61 K/uL (4.8-10.8)
[2016-09-18 10:21] LABS: MEAN PLATELET VOLUME 10.3 fL (7.4-10.4); PLATELET COUNT 97 K/uL (130-400)
--- NOTE | 2016-09-18 10:25 | Pharmacy Progress Note ---
Glycemic Control: Progress Nt Date of Service September 18, 2016. Scope Glycemic Pharmacist consulted by Dr Raphael on 09/16/16 for glycemic control and to write orders per [facility] inpatient glycemic control protocol. Objective Accuchecks BSG (last 24hrs): Test 09/17/16 12:10 09/17/16 17:09 09/17/16 20:50 09/18/16 09:58 Bedside Glucose 123 mg/dl (70-99) 162 mg/dl (70-99) 117 mg/dl (70-99) Laboratory Data (last 24hrs) Test 09/18/16 09:58 White Blood Count 6.61 K/uL HbA1c: Test 09/16/16 15:15 Hemoglobin A1c 6.9 % (4.5-5.6) H Recent Pertinent Medications Outpatient Anti-diabetic Regimen: * Insulin NPH 18 units SQ HS * Victoza 1.8mg SQ daily * Metformin 1000mg PO BID * A1c = 8.3 % 06/2016 --> 6.9 09/2016 The patient is currently receiving: * Basal insulin: * Lantus 4 units SQ x 1 dose on 09/16 in the PM * Lantus 5 units SQ x1 dose on 09/17 in the PM * Bolus Insulin: * NovoLog SQ AC/HS - Goal Range: Low 140 mg/dL - High 180 mg/dL - Correction Factor: 20 mg/dL/unit - Carb ratio of 1 unit per 10 grams CHO consumed * Other Agents: * held on admission Risk Factors for Insulin Resistance: * Infection: Diverticulitis, receiving ertapenem IV - day #3 * IVF: NSS+20mEq KCl @ 100mL/hr * Diet: Clears Assessment & Plan ASSESSMENT: 09/16/16 * ADA & AACE recommend a goal blood sugar range 140-180 mg/dl for the majority of critically ill & non-critically ill patients. * Current HbA1c pending, but diabetes seemed not at goal upon last check 2016. Given his NPO status, will need reduce his outpatient basal regimen by at least 50%. However, since his BSG decr' from 238 to 114 without any insulin , will further reduce and only give 25% of his outpatient basal regimen tonight. NovoLog correction scale based on his weight. May need to loosen as appropriate. 09/17/16 * BSGs have been very well controlled over the past 24 hours with minimal insulin administered (no NovoLog required) * Diet has been advanced - expect insulin needs to increase in response to increase in PO intake * schedule Lantus dose to account for this * NovoLog parameters * not yet able to be evaluated (none given), however will increase goal range based on ADA recommendations * add carb ratio (very conservatively) since diet is now ordered. 09/18/16 * BSGs well controlled over the past 24 hours with 9 units of insulin administered * continue with conservative management and loosen NovoLog parameters based on a stress of 1 * A1c resulted * improved since June - likely can continue home regimen at discharge if not experiencing hypoglycemia at home * Metformin continues to be held * may consider reinstating in next day or so PLAN FOR INPATIENT GLYCEMIC CONTROL: * Basal insulin: * Lantus SQ q HS - 0 units if BSG is less than 100mg/dL - 5 units if BSG is 100-160mg/dL - 7 units if BSG is above 160mg/dL * Bolus insulin: * NovoLog SQ AC and HS - CF: 40mg/dL/unit - CR: 1 unit per 15 g of CHO consumed - Goal: 140-180mg/dL * Other diabetic medications: * continue to hold metformin and liraglutide at this time * A1c - current * add to discharge instructions RECOMMENDATIONS FOR DISCHARGE: * Based on A1c, Mr. Candelario can likely continue his home regimen at discharge. * Please note that the plan above was derived based on current level of insulin resistance and hospital stress. These recommendations are appropriate for inpatient admission only. Plan of care upon discharge will need to be reassessed to avoid potential outpatient hypo/hyperglycemia. Thank you.
[2016-09-18 10:48] LABS: BUN/CREATININE RATIO 11.3 (10-20); CREATININE 0.9 mg/dl (0.60-1.40); MAGNESIUM 2.2 mg/dl (1.8-2.4); POTASSIUM 4.3 mmol/L (3.5-5.1)
[2016-09-18] MEDS ORDERED: FLUT1INH3 PO (13:08)
[2016-09-18] MEDS ORDERED: METR-163 PO (13:08)
[2016-09-18] MEDS ORDERED: CIPR-255 PO (13:08)
[2016-09-18 15:25] VITALS: BP 143/87; PULSE 64; TEMP 36.8; O2SAT 95
--- NOTE | 2016-09-18 17:50 | Discharge Instructions ---
Discharge Instructions Date of Service September 18, 2016. Admission Reason for Admission: Sigmoid Diverticulitis Discharge Discharge Diagnosis / Problem: Diverticulitis of the sigmoid colon - improved Discharge Goals Goal(s): Decrease discomfort, Improve disease control, Improve nutritional status, Learn about illness, Diagnostic testing, Therapeutic intervention Activity Recommendations Activity Limitations: as noted below For the next 3-4 days recommend light activity -- walking, short trips in town, nonstrenuous housework, etc are permissible. Avoid heavy yard work, lifting over 20 pounds, going to the gym, etc for now. Can resume normal activities later this week. . Instructions / Follow-Up Instructions / Follow-Up From Dr. Cardenas - 1. Diverticulitis - * take 8 more days of cipro and flagyl (metronidazole) * the flagyl, if used with alcohol, can lead to a severe reaction (vomiting, etc) * thus, do not drink alcohol until your antibiotic course is complete * Dr. James will perform a colonoscopy on you in about 6 weeks * his office will call you with appointment details * if you experience worsening abdominal pain, fever over 100.5 degrees, vomiting , blood in the stool, pain with eating food, etc - please report back to [facility] right away 2. Diet - * for the next 48 hours please follow a "full liquids diet" * this includes all liquids and dairy products (avoid cheese, however) * broth, cream-based soup, yogurt, milk, gatorade, juices, water, etc are all permissible * Monday PM into Monday AM you may begin to add in additional solid foods - start with easy to digest items such as toast, potatoes, rice, applesauce, etc * Thereafter you can start to resume a normal diet 3. Fiber supplement - * in about 10-14 days start taking a fiber supplement such as metamucil once daily 4. Tics - * please hold your Orap for now due to an interaction with cipro * once the cipro course is complete you can resume the Orap 5. right kidney cyst - * recommend seeing [facility] urology for this issue * they may recommend additional testing in the future 6. asthma - * based on your symptoms you would benefit from a daily, controller agent * recommend taking flovent 1 puff once daily; prescription sent to your pharmacy * continue the albuterol as needed (2 puffs every 4 hours as needed for cough/ wheeze) * ask Dr. Rowell for a referral to Dr. Lua, a new academic adviser with [facility] See Dr. Rowell or his associates in 3 days for recheck of your diverticulitis. Current Hospital Diet Patient's current hospital diet: Full Liquid Diet Discharge Diet Recommended Diet: Full Liquid Diet Procedures Procedures Performed: CAT scan of the abdomen & pelvis showing sigmoid diverticulitis and a 2cm complex cyst of the right kidney. Pending Studies Studies pending at discharge: no Laboratory Results Hemoglobin A1c Test 09/16/16 15:15 Range/Units Estimated Average Glucose 151 mg/dl Hemoglobin A1c 6.9 H 4.5-5.6 % Lipid Panel Test 07/01/16 09:13 Range/Units Triglycerides Level 137 0-150 mg/dl Cholesterol Level 181 0-200 mg/dl HDL Cholesterol 37 mg/dl Cholesterol/HDL Ratio 4.9 LDL Cholesterol, Calculated 117 mg/dl Medical Emergencies . Who to Call and When: Medical Emergencies: If at any time you feel your situation is an emergency, please call 911 immediately. . Non-Emergent Contact Non-Emergency issues call your: Primary Care Provider Call Non-Emergent contact if: temperature is above 100.5, your pain is not controlled, your pain is worsening, your pain is unusual for you, your pain is concerning you, you have any medication questions . . "Provider Documentation" section prepared by Scott Cardenas. . VTE Core Measure Inpt VTE Proph given/why not?: SCD's
[2016-09-18 18:07] VITALS: BP 143/87; PULSE 64; TEMP 36.8; O2SAT 95
--- NOTE | 2016-09-19 09:57 | Discharge Summary ---
Discharge Summary Date of Service September 19, 2016. Discharge Summary Admission Date: September 16, 2016 at 18:26 Discharge Date: September 18, 2016 Discharge Disposition: Home Principal Diagnosis: acute sigmoid diverticulitis Problems/Secondary Diagnoses: 1. mild persistent asthma 2. h/o Tourette's syndrome 3. T2DM 4. complex right kidney cyst 5. HTN 6. ITP, s/p splenectomy; baseline platelets 100-150 7. hyperlipidemia Immunizations: History of Tetanus Vaccine?: Yes History of Pneumococcal: Yes History of Hepatitis B Vaccine: No Procedures: CT abd/pelvis - IMPRESSION: 1. Acute proximal sigmoid diverticulitis. No perforation or abscess. 2. No evidence for bowel obstruction. 3. A 2.1 cm lesion within the right kidney. This is incompletely characterized on this single phase study and may represent a hyperdense cyst or possibly a solid renal mass. Follow-up nonemergent renal ultrasound should be considered for further evaluation. 4. Splenectomy. Consultations: gastroenterology - Dave James MD Medication Reconciliation New Medications: Ciprofloxacin Hcl (Cipro) 500 Mg Tab 500 MG PO BID for 8 Days, #16 TAB 0 Refills Fluticasone Furoate (Inhalatio (Arnuity Ellipta) 100 Mcg/Act Inh 1 INHA PO DAILY, #1 INHALER 2 Refills Metronidazole (Flagyl) 500 Mg Tab 500 MG PO TID for 8 Days, #24 TAB 0 Refills Continued Medications: Albuterol Hfa (Ventolin Hfa) 200 Puffs/38606 Mcg Aers 2 PUFFS INH Q4 PRN for SOB/Wheezing, #1 INHALER Atorvastatin (Lipitor) 40 Mg Tab 40 MG PO DAILY, TAB Cholecalciferol (Vitamin D 1000 Unit) 1,000 Unit Cap 1000 INTER.UNIT PO DAILY, CAP Insulin Isophane (Human) (Humulin N Kwikpen) 100 Unit/Ml Inj 18 UNITS SQ HS Liraglutide (Victoza) 18 Mg/3 Ml Inj 1.8 MG SQ DAILY, #27 Lisinopril (Lisinopril) 10 Mg Tab 10 MG PO DAILY, #90 Metformin Hcl (Glucophage) 1,000 Mg Tab 1000 MG PO BID, TAB Metoprolol Succinate (Metoprolol Succinate ER) 25 Mg Tabcr 12.5 MG PO DAILY, #30 Multivitamins/Minerals (Mvi With Minerals) Tab 1 TAB PO DAILY, TAB Prednisolone Acetate (Prednisolone Acetate) 75 Drops/5 Ml Susp 1 DROPS OPB DAILY, #5 Discontinued Medications: Pimozide (Orap) 2 Mg Tab 4 MG PO QAM Referrals At Discharge Follow up Referrals: Power Transformer Repairer Referral - Within 6 Weeks with Dave James MD Physician Referral - Within 1 Week with Abhi Rowell D.O.Int.Med. Char Filter Operator Helper Referral - Please Call For Appointment with Mansoor Lua MD Discharge Exam Physical Exam: General Appearance: WD/WN, no apparent distress ENT: pharynx normal Neck: no JVD Respiratory/Chest: lungs clear, no respiratory distress, no accessory muscle use Cardiovascular: regular rate, rhythm, no gallop, no murmur, normal peripheral pulses Abdomen / GI: normal bowel sounds, non tender, soft, no organomegaly Extremities: no pedal edema Neurologic/Psychiatric: alert, oriented x 3 Hospital Course HISTORY OF PRESENT ILLNESS: The patient is a 66-year-old male with past medical history of asthma, type 2 diabetes, hypertension and idiopathic thrombocytopenic purpura s/p splenectomy who presented to the Emergency Department due to abdominal pain. The patient reported constant abdominal pain for several days. It was associated with nausea. Denied vomiting. Had some bloating as well. The pain worsened and thus he presented to the ER. CT abd/pelvis at time of admission demonstrated uncomplicated sigmoid diverticulitis. He reported an episode of diverticulitis about 15 years prior. HOSPITAL COURSE: The patient's acute sigmoid diverticulitis improved with conservative/customary measures including bowel rest, IV antibiotic therapy, and IV fluids. He was seen in consult by Dr. James, [facility], who will arrange outpatient colonoscopy in about 6 weeks. All abdominal complaints resolved while here. He was restarted on a clear liquid diet and advanced to full liquids without difficulty. Leukocytosis resolved, and vitals remained stable. He will complete a course of oral cipro/flagyl following discharge. He was asked to restrict his diet for another 2-3 days after returning home and then gradually resuming a normal diet thereafter. The patient will hold his orap medication while on cipro, and was advised not to consume alcohol while taking flagyl. Other issues addressed - 1. asthma - by history has, at least, mild persistent asthma. He was started on flovent as a controller agent. He will need to establish care with a new brazing machine feeder in the near future for asthma management. 2. right renal cyst/mass - will need outpatient follow-up with urology. The patient was made aware of this incidentally found lesion on the CT. 3. T2DM - the patient's creatinine on day of discharge was normal and thus metformin could be resumed upon return home. All other medical problems remained stable while here. Total Time Spent: Greater than 30 minutes This includes examination of the patient, discharge planning, medication reconciliation, and communication with other providers. Discharge Instructions Please refer to the electronic Patient Visit Report (Discharge Instructions) for additional information. Follow-Up 1. see Dr. James, GI, within 6 weeks for outpatient colonoscopy 2. see Dr. Rowell, PCP, within [address] Lua, pulmonary, for routine asthma care - referral will be needed 4. will need referral to urology due to the complex renal cyst Additional Copies To Dave James MD; Abhi Rowell, D.O.Int.Med.
[2016-10-18] MEDS ORDERED: CYAN100073 (09:29)
[2016-10-18] MEDS ORDERED: COEN100C7 (09:29)
[2016-10-18] MEDS ORDERED: BIOT1CAP3 (09:29)
[2016-10-20] MEDS ORDERED: LSN10 PO (15:12)
[2016-10-20] MEDS ORDERED: SERT25TA PO (15:12)
[2016-10-24] MEDS ORDERED: WARF5TAB7 PO ×2 (14:54)
[2017-02-09] MEDS ORDERED: LIRA18IN SQ (12:30)
[2017-02-09] MEDS ORDERED: FURO-85 PO (12:30)
== END 2016-09-18 18:36 | disposition home or self-care (01) | DRG 392 ==
LOC: ENRESERVDT → ENRESERVTM → C.EDB 14:40 → C.MSW 18:26 → EDBEDREQ 18:32
PROVIDERS: ADMIT Hospitalist; ATTEND Internal Medicine
DX: K57.32 Diverticulitis of large intestine without perforation or abscess without bleeding (principal); D69.3 Immune thrombocytopenic purpura; J45.30 Mild persistent asthma, uncomplicated; F95.2 Tourette's disorder; E11.9 Type 2 diabetes mellitus without complications; I10 Essential (primary) hypertension; E78.5 Hyperlipidemia, unspecified; N28.89 Other specified disorders of kidney and ureter; Z94.7 Corneal transplant status; Z90.81 Acquired absence of spleen; Z86.711 Personal history of pulmonary embolism; Z86.010 Personal history of colon polyps; Z96.659 Presence of unspecified artificial knee joint; Z79.4 Long term (current) use of insulin; Z79.84 Long term (current) use of oral hypoglycemic drugs; Z79.899 Other long term (current) drug therapy

== ENCOUNTER → 2016-09-28 | Outpatient (CLI) | payer BC ==
[~2016-09-28] MED LIST changes: -ACT/45 PO; -ALBU1AER9 INH; +ATOR-24 PO; +BIOT1CAP3; -CHOL100010 PO; +CHOL100027 PO; +CIPR-255 PO; +CMD5 PO; +COEN100C7; +CYAN100073; +FLUT1INH3 PO; +FURO-85 PO; +INSU1INJ23 SQ; -INSUINJ SC; +LIRA18IN SQ; +LISI-461 PO; -LISI-725 PO; +LSN10 PO; +LVNIS120 SQ; +METF-384 PO; +METR-163 PO; +MULT-190 PO; +MULT-513 PO; +PANT40TA PO; +PHN25X PO; -PIMO2TAB PO; +PRDFOPS OPB; +SERT25TA PO; +TPRSR/25 PO; +VNTHFA/IN INH; +WARF5TAB7 PO; +[UNRECOGNIZED DRUG - CODE] PO
--- NOTE | 2016-09-28 12:05 | DIAGNOSTIC IMAGING REPORT ---
ULTRASOUND KIDNEYS AND BLADDER CLINICAL HISTORY: Follow-up right renal lesion. COMPARISON STUDY: Abdominal CT dated 09/16/2016. TECHNIQUE: Real-time, grayscale, and color flow sonography of the kidneys and bladder is performed. Images are reviewed in the transverse and longitudinal planes. FINDINGS: Kidneys: The kidneys demonstrate cortical atrophy. The right kidney measures 12.8 x 5.4 x 5.9 cm and the left kidney measures 13.5 x 6.5 x 5.6 cm. There is no hydronephrosis. No shadowing renal calculi are identified. There are several small right renal cysts identified. These measure up to 2.0 cm. The exophytic lesion of concern by CT arises from the posterior upper pole and measures up to 2.0 cm. This appears to demonstrate increased through transmission. No soft tissue component is seen. There are several simple appearing left-sided renal cyst which measure up to 5.6 cm. A 2.7 cm cyst in the left upper pole demonstrates a thin internal septation. There is no sonographic evidence of contour deforming renal mass lesion. No perinephric fluid is identified. Bladder: The bladder is decompressed and grossly unremarkable. Ureteral jets were not seen. IMPRESSION: 1. The kidneys demonstrate cortical atrophy and are without hydronephrosis. 2. The 2.0 cm exophytic lesion arising from the upper pole of the right kidney likely represents a complex cyst. A precautionary renal mass protocol CT scan in 6 months time is recommended for reassessment. 3. Numerous additional bilateral renal cysts are observed. 4. The bladder was decompressed and is grossly unremarkable. Electronically signed by: Chente Gold M.D. 09/28/2016 12:04 PM Dictated Date/Time: 09/28/2016 11:56 AM
== END | disposition home or self-care (01) ==
LOC: C.ULTRBC 11:22
PROVIDERS: ATTEND Family Medicine
DX: N28.9 Disorder of kidney and ureter, unspecified (principal)

== ENCOUNTER → 2016-10-11 | Outpatient (CLI) | payer BC ==
--- NOTE | 2016-10-11 07:32 | DIAGNOSTIC IMAGING REPORT ---
ABDOMINAL ULTRASOUND, RIGHT UPPER QUADRANT HISTORY: Idiopathic thrombocytopenic purpura. COMPARISON: CT of the abdomen and pelvis September 16, 2016 and renal ultrasound September 28, 2016. FINDINGS: Liver morphology is normal. There is no hepatic lesions. There is no biliary ductal dilatation. No gallstones are identified. The pancreas body is normal. The head and tail are obscured by overlying bowel gas. There is no right hydronephrosis. The previously described 2 cm lesion arising from the upper pole of the right kidney likely reflects a cyst. IMPRESSION: 1. No gallstones or biliary ductal dilatation. 2. 2 cm cystic lesion arising from the upper pole of the right kidney. This likely reflects a cyst however a six-month follow-up renal protocol CT as recommended on study of September 28, 2016 is suggested. Electronically signed by: Toni Box M.D. 10/11/2016 7:31 AM Dictated Date/Time: 10/11/2016 7:27 AM
== END | disposition home or self-care (01) ==
LOC: C.ULTR 06:58
PROVIDERS: ATTEND Nurse Practitioner Adult Health
DX: D69.3 Immune thrombocytopenic purpura (principal)

== ENCOUNTER 2016-10-12 17:42 | Inpatient (IN) | payer BC, OTHER ==
[~2016-10-12] VITALS: Ht 188 cm; Wt 113.6 kg
[~2016-10-12 17:42] MED LIST changes: -BIOT1CAP3; -CMD5 PO; -COEN100C7; -CYAN100073; -FURO-85 PO; -LSN10 PO; -LVNIS120 SQ; -MULT-190 PO; -PANT40TA PO; -PHN25X PO; -SERT25TA PO; -WARF5TAB7 PO; -[UNRECOGNIZED DRUG - CODE] PO
[2016-10-12] MEDS ORDERED: SODIUM CHLORIDE 0.9% 1000ML 1,000 ML IV STA (18:29)
--- NOTE | 2016-10-12 18:37 | EMERGENCY ROOM VISIT NOTE ---
History Report prepared by Perry: Stoney Ortiz Under the Supervision of: Dr. Chris Galeas M.D. First contact with patient: 17:59 Chief Complaint: ABDOMINAL PAIN Stated Complaint: NAUSEA,R SIDE PAIN Nursing Triage Summary: triage note: pt reports right abd pain x 1 week. pt reports nausea and diarrhea "there is terrible nausea and burping and my stomach is distended, i had an ultrasound done yesterday." History of Present Illness The patient is a 66 year old male who presents to the Emergency Room with complaints of persistent right sided abdominal pain about a week ago. He has worsening pain after eating. He also complains of abdominal distention. He reports increased gassiness with gurgling and burping. He has been having diarrhea for the past week. He reports chills and diaphoresis but denies any fevers. The patient was admitted a few days ago for diverticulitis when he had mid-abdominal pain. He was prescribed Cipro and Flagyl without relief. Since discharge, the patient has been having nausea. He has been taking Zofran without relief. He was instructed to stop taking Victoza about a week ago but he did not have any relief in the nausea. The patient has a history of ITP and spleen removal. He denies any history of appendectomy. Source of History: patient, spouse/significant other Onset: about a week ago Position: abdomen (right sided) Timing: other (persistent) Modifying Factors (Worsening): eating Modifying Factors (Relieving): other (Cipro and Flagyl without relief) Associated Symptoms: + chills, + diaphoresis, + nausea, + diarrhea, No fevers Review of Systems See HPI for pertinent positives & negatives. A total of 10 systems reviewed and were otherwise negative. Past Medical & Surgical Medical Problems: (1) Asthma (2) Diabetes (3) Hypertension (4) ITP (idiopathic thrombocytopenic purpura) (5) Pneumonia (6) Pulmonary embolism (7) sigmoid diverticulitis , spleen abscent (8) sigmoid diverticulitis , spleen abscent Surgical Problems: (1) History of cornea transplant (2) History of hernia surgery (3) History of knee replacement Old medical records were reviewed. Nurse's notes were reviewed and I agree with. Family History Cancer Diabetes mellitus Heart disease Hypertension Social History Smoking Status: Never Smoker Alcohol Use: occasionally Drug Use: none Marital Status: Housing Status: lives with significant other Occupation Status: employed Current/Historical Medications Scheduled Atorvastatin (Lipitor), 40 MG PO DAILY Cholecalciferol (Vitamin D 1000 Unit), 1,000 INTER.UNIT PO DAILY Fluticasone Furoate (Inhalatio (Arnuity Ellipta), 1 INHA PO DAILY Insulin Isophane (Human) (Humulin N Kwikpen), 18 UNITS SQ HS Lisinopril (Lisinopril), 10 MG PO DAILY Metformin Hcl (Glucophage), 1,000 MG PO BID Metoprolol Succinate (Metoprolol Succinate ER), 12.5 MG PO DAILY Multivitamins/Minerals (Mvi With Minerals), 1 TAB PO DAILY Ocuvite Preservision (Ocuvite Preservision), 1 TAB PO DAILY Pimozide (Pimozide), 1 TAB PO BID Prednisolone Acetate (Prednisolone Acetate), 1 DROPS OPB DAILY Scheduled PRN Albuterol Hfa (Ventolin Hfa), 2 PUFFS INH Q4 PRN for SOB/Wheezing Allergies Coded Allergies: Ciprofloxacin (Unverified Adverse Reaction, Severe, BURNING STOMACH, ) Uncoded Allergies: SNAILS (Allergy, Severe, ANAPHYLAXIS, 09/16/16) Physical Exam Vital Signs Date Time Temp Pulse Resp B/P (MAP) Pulse Ox O2 Delivery O2 Flow Rate FiO2 10/12/16 21:29 69 18 140/81 93 Room Air 10/12/16 19:40 45 18 141/69 95 Room Air 10/12/16 17:48 36.6 65 18 149/89 95 Room Air Physical Exam General: Non-ill appearing, middle aged male, in no acute distress. HEENT: Normal cephalic atraumatic. Pupils are equal round and reactive to light. Extraocular movements are intact. Oropharynx is pink with moist mucous membranes. No swelling of the mouth lips or tongue. Neck: Supple with a midline trachea. No meningeal signs or stiffness, no JVD or bruits. No Stridor. Chest: Clear to auscultation bilaterally. No wheezes or rhonchi. No increased work of breathing. Heart: regular rate and rhythm. Abdomen: Soft, distended but not significantly tender, without rebound guarding or rigidity. Old surgical scar. No signs of hernia. No peritonitis. Extremities: No cyanosis clubbing or edema. No calf tenderness or assymetry Spine/Back. Non tender to palpation. No CVA tenderness Skin: Good turgor without rashes. Neurologic exam: Cranial nerves two through 12 are intact. Motor and sensation are intact and symmetrical throughout. Medical Decision & Procedures Laboratory Results 10/12/16 18:15 Red Blood Count 4.71, Mean Corpuscular Volume 90.2, Mean Corpuscular Hemoglobin 31.2, Mean Corpuscular Hemoglobin Concent 34.6, Mean Platelet Volume 10.7, Neutrophils (%) (Auto) 57.9, Lymphocytes (%) (Auto) 30.1, Monocytes (%) (Auto) 7.9, Eosinophils (%) (Auto) 3.4, Basophils (%) (Auto) 0.4, Neutrophils # (Auto) 4.25, Lymphocytes # (Auto) 2.21, Monocytes # (Auto) 0.58, Eosinophils # (Auto) 0.25, Basophils # (Auto) 0.03 10/12/16 18:15 Test 10/12/16 18:15 10/12/16 18:45 10/12/16 18:54 White Blood Count 7.34 K/uL (4.8-10.8) Red Blood Count 4.71 M/uL (4.7-6.1) Hemoglobin 14.7 g/dL (14.0-18.0) Hematocrit 42.5 % (42-52) Mean Corpuscular Volume 90.2 fL (80-100) Mean Corpuscular Hemoglobin 31.2 pg (25-34) Mean Corpuscular Hemoglobin Concent 34.6 g/dl (32-36) Platelet Count 70 K/uL (130-400) Mean Platelet Volume 10.7 fL (7.4-10.4) Neutrophils (%) (Auto) 57.9 % Lymphocytes (%) (Auto) 30.1 % Monocytes (%) (Auto) 7.9 % Eosinophils (%) (Auto) 3.4 % Basophils (%) (Auto) 0.4 % Neutrophils # (Auto) 4.25 K/uL (1.4-6.5) Lymphocytes # (Auto) 2.21 K/uL (1.2-3.4) Monocytes # (Auto) 0.58 K/uL (0.11-0.59) Eosinophils # (Auto) 0.25 K/uL (0-0.5) Basophils # (Auto) 0.03 K/uL (0-0.2) RDW Standard Deviation 44.9 fL (36.4-46.3) RDW Coefficient of Variation 13.5 % (11.5-14.5) Immature Granulocyte % (Auto) 0.3 % Immature Granulocyte # (Auto) 0.02 K/uL (0.00-0.02) Platelet Estimate DECREASED Anisocytosis PRESENT Price-Ebony Bodies 2+ Acanthocytes 1+ Anion Gap 5.0 mmol/L (3-11) Est Creatinine Clear Calc Drug Dose 111.0 ml/min Estimated GFR () 103.3 Estimated GFR (Non- 89.1 BUN/Creatinine Ratio 18.2 (10-20) Calcium Level 8.4 mg/dl (8.5-10.1) Total Bilirubin 0.3 mg/dl (0.2-1) Direct Bilirubin < 0.1 mg/dl (0-0.2) Aspartate Amino Transf (AST/SGOT) 13 U/L (15-37) Alanine Aminotransferase (ALT/SGPT) 17 U/L (12-78) Alkaline Phosphatase 80 U/L (45-117) Total Protein 6.7 gm/dl (6.4-8.2) Albumin 3.5 gm/dl (3.4-5.0) Lipase 250 U/L (73-393) Urine Color DK YELLOW Urine Appearance CLEAR (CLEAR) Urine pH 5.5 (4.5-7.5) Urine Specific [place] 1.024 (1.000-1.030) Urine Protein NEG (NEG) Urine Glucose (UA) NEG (NEG) Urine Ketones TRACE (NEG) Urine Occult Blood NEG (NEG) Urine Nitrite NEG (NEG) Urine Bilirubin NEG (NEG) Urine Urobilinogen NEG (NEG) Urine Leukocyte Esterase NEG (NEG) Bedside Lactic Acid Venous 1.04 mmol/L (0.90-1.70) Laboratory studies as stated above per my review. Medications Administered Medications (Trade) Dose Ordered Sig/Jadon Route Start Time Stop Time Status Last Admin Dose Admin Sodium Chloride 1,000 ml @ 999 mls/hr Q1H1M STAT IV 10/12/16 18:29 10/12/16 19:29 DC 10/12/16 18:29 999 MLS/HR ECG Indication: abdominal pain Rate (beats per minute): 67 Rhythm: normal sinus Findings: no acute ischemic change, left axis deviation, no ectopy Comparison ECG Date: February 19, 2013 Change: Rate has decreased when compared to February 19, 2015. ED Course 1758: Past medical records reviewed. The patient was evaluated in room A03, and a complete history and physical examination were performed. 1828: Sodium Chloride 1000 ml @ 999 mls/hr IV 1936: I reevaluated the patient who appears comfortable. She is agreeable to a CT scan. 1958: The patient is currently in CT. Medical Decision Differential diagnosis includes but is not limited to diverticulitis, abscess, gallbladder disease, appendicitis, ischemic colitis, dehydration, infection. Medication Reconciliation: I attest that I have personally reviewed the patient' s current medication list. Blood pressure Screening: Patient was found to have an elevated blood pressure and was referred to their primary doctor for recheck and further treatment. This patient comes in as described above. He was placed in room A3. Here for treatment and evaluation of ongoing abdominal bloating and discomfort most in the right upper abdomen. He was diagnosed with diverticulitis and finished his course of antibiotics since then. He's had some diarrhea and bloating and some nonspecific bowel problems. He had an ultrasound of his gallbladder 2 days ago which was unremarkable. He's had no fever. He does have a history of ITP and has a spleen removed in the past many years ago. His abdomen exam is benign. He's been afebrile. IV access established . He has no white count or fever to suggest infection. He is not anemic. His platelets are low at 70,000 which are about baseline for him according to chart he runs between 50 and 150. He is no evidence of acute bleeding at this point. He has no acute electrolyte or metabolic abnormalities. He has to suggest that he has nothing she has liver, gallbladder, or pancreas disease. I did repeat a CAT scan of his abdomen to rule out any acute intra-abdominal process or abscess, also to rule out any vascular abnormality such as ischemic colitis. His lactic acid was not elevated. CAT scan did not reveal any acute intra-abdominal process or vascular process. There was however questionable PE on the right base. The patient denies that he has any chest pain or shortness of breath with exception feeling bloated in the abdomen. I did discuss case Dr. Box who recommended that we do a chest CT to look at the possibility he felt the patient could also tolerate another dye load as his creatinine was 0.8. The CAT scan was obtained and I further discussed this with the patient. The patient was found to have subsegmental PEs on the right. This could be explaining some of his pain potentially. I do think he likely needs to be admitted for anticoagulation. He does have ITP history and has a platelets 70, 000 so this will make this a little more complicated potentially. I have discussed the case with Dr. Galeana who will see him in the emergency department. Impression Primary Impression: Pulmonary embolism Additional Impressions: Nausea RUQ abdominal pain Scribe Attestation The scribe's documentation has been prepared under my direction and personally reviewed by me in its entirety. I confirm that the note above accurately reflects all work, treatment, procedures, and medical decision making performed by me. Departure Information Referrals Abhi Rowell D.O.Int.Med. (PCP) Patient Instructions [facility] Problem Qualifiers
[2016-10-12 18:40] LABS: HEMATOCRIT 42.5 % (42-52); MEAN CELL VOLUME 90.2 fL (80-100); MEAN CORPUSCULAR HEMOGLOBIN 31.2 pg (25-34); MEAN CORPUSCULAR HGB CONC 34.6 g/dl (32-36); RED BLOOD COUNT 4.71 M/uL (4.7-6.1); WHITE BLOOD COUNT 7.34 K/uL (4.8-10.8)
[2016-10-12 18:48] LABS: BLOOD UREA NITROGEN 16 mg/dl (7-18); BUN/CREATININE RATIO 18.2 (10-20); CALCIUM 8.4 mg/dl (8.5-10.1); CARBON DIOXIDE 31 mmol/L (21-32); CHLORIDE 107 mmol/L (98-107); CREATININE 0.86 mg/dl (0.60-1.40); GLUCOSE 136 mg/dl (70-99); SODIUM 143 mmol/L (136-145)
[2016-10-12 18:51] LABS: ALKALINE PHOSPHATASE 80 U/L (45-117); ALT/SGPT 17 U/L (12-78); AST/SGOT 13 U/L (15-37)
[2016-10-12] MEDS ORDERED: MULT-190 PO (18:56)
[2016-10-12] MEDS ORDERED: [UNRECOGNIZED DRUG - CODE] PO (18:58)
[2016-10-12 19:12] LABS: URINE APPEARANCE CLEAR (CLEAR); URINE BILIRUBIN NEG (NEG); URINE COLOR DK YELLOW; URINE NITRITE NEG (NEG); URINE PH 5.5 (4.5-7.5); URINE SPECIFIC GRAVITY 1.024 (1.000-1.030); UROBILINOGEN NEG (NEG)
[2016-10-12 19:16] LABS: MEAN PLATELET VOLUME 10.7 fL (7.4-10.4); PLATELET COUNT 70 K/uL (130-400)
[2016-10-12 19:45] LABS: ACANTHOCYTES 1+; ANISOCYTOSIS PRESENT; BASO % 0.4 %; BASO ABS # 0.03 K/uL (0-0.2); COMPLETE YES; EOS % 3.4 %; HOWELL-JOLLY BODIES 2+; IG% 0.3 %; LYMPH % 30.1 %; LYMPH ABS # 2.21 K/uL (1.2-3.4); MONO % 7.9 %; NEUT % 57.9 %; PLT ESTIMATE DECREASED
[2016-10-12 19:56] LABS: MANUAL MICROSCOPIC REQUIRED? NO; REVIEW REQ? NO
[2016-10-12] MEDS ORDERED: OPTIRAY 320 IV PRN (20:00)
--- NOTE | 2016-10-12 20:32 | DIAGNOSTIC IMAGING REPORT ---
CT ANGIOGRAPHY OF THE ABDOMEN AND PELVIS CT DOSE: 1521.61 mGy.cm CLINICAL HISTORY: Right-sided abdominal pain, worse after eating. Recent diverticulitis. TECHNIQUE: Axial images of the abdomen and pelvis were obtained during arterial phase following intravenous injection 115 cc Optiray 320 IV. Sagittal and coronal reconstructed reviewed as well as maximal intensity projections on an independent workstation. COMPARISON STUDY: CT of the abdomen and pelvis September 16, 2016, renal ultrasound September 28, 2016 and right upper quadrant ultrasound October 11, 2016. FINDINGS: The heart is mildly enlarged. Note is made of suspected small segmental pulmonary emboli within the right lower lobe shown best on axial image 25 of 506. There is moderate atherosclerotic plaque of the abdominal aorta. The major branch vessels of the abdominal aorta are patent. There is no evidence for dissection. Arterial phase images of the liver, adrenal glands and pancreas are normal. The patient is status post splenectomy. Note is made of a 5.4 cm cyst arising from the upper pole of the left kidney. A 2 cm intermediate attenuation lesion within the right kidney was shown to likely reflect a cyst on recent ultrasound. Mild mesenteric infiltration is unchanged. There are findings consistent with a ventral hernia repair with mesh. There is colonic diverticulosis without evidence for acute diverticulitis. There is no abscess. Mild bladder wall thickening is noted. There are fat-containing bilateral inguinal hernias. There are no suspicious osseous lesions. IMPRESSION: 1. Suspected small segmental pulmonary emboli within visualized portions of the right lower lobe. This finding is suboptimally assessed given suboptimal opacification. Assuming adequate renal function, A PE protocol CT could be obtained for confirmation. 2. No acute process within the abdomen or pelvis. Interval resolution of acute diverticulitis shown on exam of September 16, 2016. No abscess. Extensive colonic diverticulosis without evidence for acute diverticulitis. 3. Moderate atherosclerotic plaque of the abdominal aorta and major branch vessels with no significant stenosis identified. No dissection. Electronically signed by: Toni Box M.D. 10/12/2016 8:31 PM Dictated Date/Time: 10/12/2016 8:19 PM
--- NOTE | 2016-10-12 21:43 | DIAGNOSTIC IMAGING REPORT ---
CT ANGIOGRAPHY OF THE CHEST, PULMONARY EMBOLUS PROTOCOL CLINICAL HISTORY: Chest pain. Possible pulmonary embolus on abdominal CT. COMPARISON STUDY: Chest radiograph February 19, 2015. TECHNIQUE: Following IV administration of 95 mL of Optiray-320, helical axial images of the chest were obtained utilizing the pulmonary embolus protocol. Maximal intensity projections and sagittal and coronal reformats were viewed on an independent 3D workstation. IV contrast was administered without complication. CT DOSE: 541.17 mGy.cm FINDINGS: There are a few small segmental pulmonary emboli within the right lower lobe shown best on axial image 72 of 263. These correspond to the emboli shown on abdominal CT from earlier today. No central pulmonary embolus is present. The heart is moderately enlarged. There is extensive coronary artery calcification. No pneumothorax or pleural effusion is present. There is no pulmonary infarct. Lingular and left lower lobe opacities favor atelectasis. There is no thoracic lymphadenopathy. The patient is status post splenectomy. There is mild elevation of the left hemidiaphragm. IMPRESSION: 1. Several small segmental pulmonary emboli within the right lower lobe. No pulmonary infarct. 2. Mild cardiomegaly and extensive coronary artery calcification. Electronically signed by: Toni Box M.D. 10/12/2016 9:41 PM Dictated Date/Time: 10/12/2016 9:36 PM
[2016-10-12] MEDS ORDERED: ALUMINUM/MAGNESIUM/SIMETH (MAALOX MAX) 30 ML UDC PO PRN (23:00)
[2016-10-12] MEDS ORDERED: MAGNESIUM HYDROXIDE SUSP 30 ML UDC PO PRN (23:00)
[2016-10-12] MEDS ORDERED: POLYETHYLENE (MIRALAX) 17 GM PACK PO PRN (23:00)
[2016-10-12] MEDS ORDERED: ALBUTEROL HFA 8 GM INHALER INH PRN (23:15)
[2016-10-12] MEDS ORDERED: IV FLUIDS COMPLETED PRN (23:45)
--- NOTE | 2016-10-12 23:47 | History and Physical ---
History & Physical Date & Time of Service: Oct 12, 2016 at 23:25 Chief Complaint: Nausea,R Side Pain Primary Care Physician: Abhi Rowell, D.O.Int.Med. History of Present Illness Source: patient 66 y/o M Hx HTN, DM 2, chronic thrombocytopenia, PE 15 years prior. Pt was admitted to the hospital on 09/16 for diverticulitis and D/Cd 09/18. He presented with abdominal pain and distention at that time. He returns to the hospital today with similar symptoms and pain which is largely confined to his RUQ. He describes nausea without vomiting and significant distention which in turn causes him to be SOB lying down or bending over. He dose not have diarrhea or constipation. The pt was sent for abdominal CT angiography in the ER which did not show any acute findings in his abdomen and confirmed resolution of his recent diverticulitis. There was however concern for R sided segmental pulmonary emboli. This was confirmed on CT chest. He denies CP, palpitations or significant SOB. Past Medical/Surgical History Medical Problems: (1) Asthma Status: Chronic (2) Diabetes Status: Chronic (3) Hypertension Status: Chronic (4) ITP (idiopathic thrombocytopenic purpura) Status: Chronic (5) Pneumonia Status: Resolved (6) Pulmonary embolism Status: Resolved Surgical Problems: (1) History of cornea transplant Status: Resolved (2) History of hernia surgery Status: Resolved (3) History of knee replacement Status: Resolved Family History Cancer Diabetes mellitus Heart disease Hypertension Social History Smoking Status: Never Smoker Drug Use: none Marital Status: Occupational Status: employed Immunizations History of Tetanus Vaccine?: Yes History of Pneumococcal: Yes History of Hepatitis B Vaccine: No Multi-Drug Resistant Organisms History of MDRO: No Allergies Coded Allergies: Ciprofloxacin (Unverified Adverse Reaction, Severe, BURNING STOMACH, ) Uncoded Allergies: SNAILS (Allergy, Severe, ANAPHYLAXIS, 09/16/16) Home Medications Scheduled Atorvastatin (Lipitor), 40 MG PO DAILY Cholecalciferol (Vitamin D 1000 Unit), 1,000 INTER.UNIT PO DAILY Fluticasone Furoate (Inhalatio (Arnuity Ellipta), 1 INHA PO DAILY Insulin Isophane (Human) (Humulin N Kwikpen), 18 UNITS SQ HS Lisinopril (Lisinopril), 10 MG PO DAILY Metformin Hcl (Glucophage), 1,000 MG PO BID Metoprolol Succinate (Metoprolol Succinate ER), 12.5 MG PO DAILY Multivitamins/Minerals (Mvi With Minerals), 1 TAB PO DAILY Ocuvite Preservision (Ocuvite Preservision), 1 TAB PO DAILY Pimozide (Pimozide), 1 TAB PO BID Prednisolone Acetate (Prednisolone Acetate), 1 DROPS OPB DAILY Scheduled PRN Albuterol Hfa (Ventolin Hfa), 2 PUFFS INH Q4 PRN for SOB/Wheezing Review of Systems Constitutional: No fever, No chills, No sweats Eyes: No worsening of vision, No eye pain ENT: No hearing loss, No unusual epistaxis, No nasal symptoms Respiratory: + problem reported (SOB secondary to abdominal distention), No cough, No sputum, No wheezing Cardiovascular: + orthopnea (due to compression), No chest pain, No PND Abdomen: + pain, + nausea, No vomiting, No diarrhea, No constipation, No GI bleeding Musculoskeletal: No joint pain, No muscle pain Genitourinary - Male: No hematuria, No dysuria, No urinary frequency Neurologic: No memory loss, No paralysis, No weakness Psychiatric: No depression symptoms Endocrine: No fatigue Hematologic / Lymphatic: No abnormal bleeding/bruising Integumentary: No rash Allergic / Immunologic: No environmental allergies Physical Exam Vital Signs Date Time Temp Pulse Resp B/P (MAP) Pulse Ox O2 Delivery O2 Flow Rate FiO2 10/12/16 23:20 63 10/12/16 23:03 35 10/12/16 23:00 64 16 149/88 95 Room Air 10/12/16 21:29 69 18 140/81 93 Room Air 10/12/16 19:40 45 18 141/69 95 Room Air 10/12/16 17:48 36.6 65 18 149/89 95 Room Air General Appearance: WD/WN, no apparent distress Head: normocephalic, atraumatic Eyes: normal inspection, PERRL, EOMI ENT: normal ENT inspection, hearing grossly normal, TMs normal, pharynx normal Neck: supple, no adenopathy, thyroid normal, no JVD Respiratory/Chest: chest non-tender, lungs clear, normal breath sounds, no respiratory distress, no accessory muscle use Cardiovascular: regular rate, rhythm, no edema, no gallop, no JVD, no murmur, normal peripheral pulses Abdomen/GI: + tenderness, + distended (Pain to palpation primarily in the RUQ) Back: normal inspection, no CVA tenderness, no muscle spasm, normal range of motion Extremities/Musculoskelatal: normal inspection, no calf tenderness, normal capillary refill, no pedal edema, normal range of motion Neurologic/Psych: 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 facility 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-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 nml as tested, no motor/sensory deficits, alert, normal mood/affect, normal reflexes, oriented x 3 Skin: normal color, warm/dry, no rash Diagnostics Laboratory Results Results Past 24 Hours Test 10/12/16 18:15 10/12/16 18:45 10/12/16 18:54 Range/Units White Blood Count 7.34 4.8-10.8 K/uL Red Blood Count 4.71 4.7-6.1 M/uL Hemoglobin 14.7 14.0-18.0 g/dL Hematocrit 42.5 42-52 % Mean Corpuscular Volume 90.2 80-100 fL Mean Corpuscular Hemoglobin 31.2 25-34 pg Mean Corpuscular Hemoglobin Concent 34.6 32-36 g/dl Platelet Count 70 130-400 K/uL Mean Platelet Volume 10.7 7.4-10.4 fL Neutrophils (%) (Auto) 57.9 % Lymphocytes (%) (Auto) 30.1 % Monocytes (%) (Auto) 7.9 % Eosinophils (%) (Auto) 3.4 % Basophils (%) (Auto) 0.4 % Neutrophils # (Auto) 4.25 1.4-6.5 K/uL Lymphocytes # (Auto) 2.21 1.2-3.4 K/uL Monocytes # (Auto) 0.58 0.11-0.59 K/uL Eosinophils # (Auto) 0.25 0-0.5 K/uL Basophils # (Auto) 0.03 0-0.2 K/uL RDW Standard Deviation 44.9 36.4-46.3 fL RDW Coefficient of Variation 13.5 11.5-14.5 % Immature Granulocyte % (Auto) 0.3 % Immature Granulocyte # (Auto) 0.02 0.00-0.02 K/uL Platelet Estimate DECREASED Anisocytosis PRESENT [place] Bodies 2+ Acanthocytes 1+ Sodium Level 143 136-145 mmol/L Potassium Level 4.0 3.5-5.1 mmol/L Chloride Level 107 98-107 mmol/L Carbon Dioxide Level 31 21-32 mmol/L Anion Gap 5.0 3-11 mmol/L Blood Urea Nitrogen 16 7-18 mg/dl Creatinine 0.86 0.60-1.40 mg/dl Est Creatinine Clear Calc Drug Dose 111.0 ml/min Estimated GFR () 103.3 Estimated GFR (Non- 89.1 BUN/Creatinine Ratio 18.2 10-20 Random Glucose 136 70-99 mg/dl Calcium Level 8.4 8.5-10.1 mg/dl Total Bilirubin 0.3 0.2-1 mg/dl Direct Bilirubin < 0.1 0-0.2 mg/dl Aspartate Amino Transf (AST/SGOT) 13 15-37 U/L Alanine Aminotransferase (ALT/SGPT) 17 12-78 U/L Alkaline Phosphatase 80 45-117 U/L Total Protein 6.7 6.4-8.2 gm/dl Albumin 3.5 3.4-5.0 gm/dl Lipase 250 73-393 U/L Urine Color DK YELLOW Urine Appearance CLEAR CLEAR Urine pH 5.5 4.5-7.5 Urine Specific [place] 1.024 1.000-1.030 Urine Protein NEG NEG Urine Glucose (UA) NEG NEG Urine Ketones TRACE NEG Urine Occult Blood NEG NEG Urine Nitrite NEG NEG Urine Bilirubin NEG NEG Urine Urobilinogen NEG NEG Urine Leukocyte Esterase NEG NEG Bedside Lactic Acid Venous 1.04 0.90-1.70 mmol/L Microbiology Results 10/12/16 Urine Culture, Received Pending Diagnostic Radiology CT chest 1. Several small segmental pulmonary emboli within the right lower lobe. No pulmonary infarct. 2. Mild cardiomegaly and extensive coronary artery calcification Abdominal angiography 1. Suspected small segmental pulmonary emboli within visualized portions of the right lower lobe. This finding is suboptimally assessed given suboptimal opacification. Assuming adequate renal function, A PE protocol CT could be obtained for confirmation. 2. No acute process within the abdomen or pelvis. Interval resolution of acute diverticulitis shown on exam of September 16, 2016. No abscess. Extensive colonic diverticulosis without evidence for acute diverticulitis. 3. Moderate atherosclerotic plaque of the abdominal aorta and major branch vessels with no significant stenosis identified. No dissection. EKG NSR , L axis - no change from previous Impression Assessment and Plan 66 y/o M Hx HTN, DM 2, chronic thrombocytopenia, PE 15 years prior. Pt was admitted to the hospital on 09/16 for diverticulitis. He returns to the hospital today with similar symptoms and pain which is largely confined to his RUQ. He describes nausea without vomiting and significant distention which in turn causes him to be SOB lying down or bending over. The pt was sent for abdominal CT angiography in the ER which did not show any acute findings in his abdomen and confirmed resolution of his recent diverticulitis. There was however concern for R sided segmental pulmonary emboli. This was confirmed on CT chest. 1) Abdominal pain - no clear etiology - may merit a HIDA scan as an US and ST do not support cholecystitis. We have consulted GI and will treat symptomatically pending further evaluation. 2) Pulmonary emboli - this is in a sense an incidental diagnosis as he does not have related symptoms unless his RUQ pain is somehow referred. We have placed him on full dose Lovenox and will consult HO as he we will need a decision on an oral agent and he will need outpt f/u considering his thrombocytopenia. 3) ITP - platelet count appears lower than a recent baseline. Will trend and pt will f/u with HO 4) DM - placed on SS while NPO 5) HTN - cont Toprol, Lisinopril Full code - full dose Lovenox Total time for this admit including review of labs, meds, EKG - discussion with pt and ER attending 37 min Level of Care Telemetry Resuscitation Status FULL RESUSCITATION VTE Prophylaxis VTE Risk Assessment Done? Y/N: Yes Risk Level: High Given or contraindicated: Other Anticoagulation
[2016-10-13] VITALS (9 sets, daily range): BP systolic 151–159; BP diastolic 73–91; PULSE 43–73; TEMP 36.6–36.9; O2SAT 94–96; Ht 188 cm; Wt 113.6 kg
[2016-10-13] MEDS ORDERED: IV FLUIDS COMPLETED PRN (00:15)
[2016-10-13] MEDS: ARNUITY~ORDER AWAITING ACTION SCH ×4 (00:45→23:09)
[2016-10-13] MEDS: SODIUM CHLORIDE 0.9% 1000ML 1,000 ML IV SCH ×3 (01:00→20:50)
[2016-10-13] MEDS: ENOXAPARIN 120 MG/0.8 ML SYR SQ SCH ×3 (01:00→21:36)
[2016-10-13] MEDS: MoRPHine SULFATE 4 MG/ML 1 ML CARP\\VIAL IV PRN (01:12)
[2016-10-13 05:56] LABS: MEAN CELL VOLUME 89.9 fL (80-100); MEAN CORPUSCULAR HEMOGLOBIN 29.8 pg (25-34); MEAN CORPUSCULAR HGB CONC 33.2 g/dl (32-36); RED BLOOD COUNT 4.56 M/uL (4.7-6.1); WHITE BLOOD COUNT 8.06 K/uL (4.8-10.8)
[2016-10-13 06:02] LABS: MEAN PLATELET VOLUME 10.7 fL (7.4-10.4); PLATELET COUNT 73 K/uL (130-400)
--- NOTE | 2016-10-13 06:34 | DIAGNOSTIC IMAGING REPORT ---
ULTRASOUND VENOUS DOPPLER LWR EXT BILA CLINICAL HISTORY: Leg swelling COMPARISON STUDY: No previous studies for comparison. FINDINGS: Real-time and color flow Doppler imaging were performed. Flow was seen within the femoral, popliteal and calf veins with no intraluminal thrombus demonstrated. The saphenous vein is patent. IMPRESSION: No evidence of lower extremity DVT. Electronically signed by: Asif Ruiz M.D. 10/13/2016 6:32 AM Dictated Date/Time: 10/13/2016 6:32 AM
[2016-10-13 06:35] LABS: BUN/CREATININE RATIO 14.9 (10-20); CALCIUM 7.9 mg/dl (8.5-10.1); CREATININE 0.83 mg/dl (0.60-1.40); MAGNESIUM 2.2 mg/dl (1.8-2.4); POTASSIUM 4.6 mmol/L (3.5-5.1)
[2016-10-13] MEDS: ACETAMINOPHEN 325 MG TAB PO PRN (08:35)
[2016-10-13] MEDS: PrednisoLONE ACET 1% OP SUSP 5 ML BTL OPB SCH (08:35)
[2016-10-13] MEDS: METOPROLOL SUCC 25MG EXT REL TAB PO SCH (08:36)
[2016-10-13] MEDS: ATORVASTATIN 20 MG TAB PO SCH (08:37)
[2016-10-13] MEDS ORDERED: LISINOPRIL 10 MG TAB PO SCH (09:00)
--- NOTE | 2016-10-13 09:45 | Gastrointestinal Consultation ---
Gastrointestinal Consultation Date of Consultation: Oct 13, 2016 Attending Physician: Charito Consulting Physician: Steven Reason for Consultation: RUQ pain History of Present Illness Patient is a 66 year old male w/ PMH significant for HTN, T2DM, diverticulitis, chronic thrombocytopenia and history of PE who presented to the ED With RUQ pain worse after eating x 1 week with associated abdominal distention, burping, belching and flatus - GI was consulted for management. Imaging through the ED + for right lower lobe PE. Pt was seen and evaluated this AM. His is at bedside. He tells me since his episode of diverticulitis a few weeks ago he has been having worsening RUQ pain and upper GI symptoms. Pain is constant and dull 3/10. It is aggravated by PO intake - even H2O. Associated with constant nausea , bloating, burping and belching. Does not regurgitation and burning up his esophagus. Has had episodes of solids dysphagia - typically only meats. Has had intermittent occurrences of dark stools. BMs are alternating between semi- formed and formed with urgency typically triggered by PO intake. No lower abdominal pain. He tells me everyone in his family has had their gallbladder out for similar symptoms. Colonoscopy as an outpatient is already arranged for Dr. James. He has never had an EGD. CTA abdominal 10/12/16: Suspected small segmental pulmonary emboli within visualized portions of the right lower lobe. This finding is suboptimally assessed given suboptimal opacification. Assuming adequate renal function, A PE protocol CT could be obtained for confirmation. No acute process within the abdomen or pelvis. Interval resolution of acute diverticulitis shown on exam of September 16, 2016. No abscess. Extensive colonic diverticulosis without evidence for acute diverticulitis. Moderate atherosclerotic plaque of the abdominal aorta and major branch vessels with no significant stenosis identified. No dissection. CTA chest 10/12/16: Several small segmental pulmonary emboli within the right lower lobe. No pulmonary infarct. Mild cardiomegaly and extensive coronary artery calcification. Venous duplex 10/12/16: No evidence of lower extremity DVT. RUQ US 10/11/16: Liver morphology is normal. There is no hepatic lesions. There is no biliary ductal dilatation. No gallstones are identified. The pancreas body is normal. The head and tail are obscured by overlying bowel gas. There is no right hydronephrosis. The previously described 2 cm lesion arising from the upper pole of the right kidney likely reflects a cyst. Past Medical/Surgical History Medical Problems: (1) Asplenia Status: Acute (2) Diverticulitis Status: Acute (3) Nausea Status: Acute (4) RUQ abdominal pain Status: Acute Past Medical History: Asplenia, history of diverticulitis, history of PE, HTN, T2DM Past Surgical History: History of cornea transplant, History of hernia surgery, History of knee replacement Family History Cancer Diabetes mellitus Heart disease Hypertension Social History Smoking Status: Current Every Day Smoker Alcohol Use: occasionally Drug Use: none Marital Status: Housing Status: lives with significant other Occupation Status: employed Allergies Coded Allergies: Ciprofloxacin (Unverified Adverse Reaction, Severe, BURNING STOMACH, ) Uncoded Allergies: SNAILS (Allergy, Severe, ANAPHYLAXIS, 09/16/16) Current Medications Home Meds and Scripts Medications Dose Route/Sig Max Daily Dose Days Date Category Pimozide 2 Mg Tab 1 Tab PO BID 10/12/16 Reported Ocuvite Preservision (Multivitamins/Minerals) 1 Tab Tab 1 Tab PO DAILY 10/12/16 Reported Arnuity Ellipta (Fluticasone Furoate (Inhalatio) 100 Mcg/Act Inh 1 Inha PO DAILY 09/18/16 Rx Mvi With Minerals (Multivitamins/Minerals) Tab 1 Tab PO DAILY 09/16/16 Reported Metoprolol Succinate ER (Metoprolol Succinate) 25 Mg Tabcr 12.5 Mg PO DAILY 09/16/16 Reported Prednisolone Acetate 75 Drops/5 Ml Susp 1 Drops OPB DAILY 09/16/16 Reported Lisinopril 10 Mg Tab 10 Mg PO DAILY 09/16/16 Reported Humulin N Kwikpen (Insulin Isophane (Human)) 100 Unit/Ml Inj 18 Units SQ HS 09/16/16 Reported Ventolin Hfa (Albuterol) 200 Puffs/53711 Mcg Aers 2 Puffs INH Q4 PRN 09/16/16 Reported Vitamin D 1000 Unit (Cholecalciferol) 1,000 Unit Cap 1,000 Inter.unit PO DAILY 09/16/16 Reported Glucophage (Metformin Hcl) 1,000 Mg Tab 1,000 Mg PO BID 12/18/13 Reported Lipitor (Atorvastatin Calcium) 40 Mg Tab 40 Mg PO DAILY 12/18/13 Reported Review of Systems Constitutional: + chills, No fever Respiratory: No cough, No shortness of breath Cardiac: No chest pain Abdomen: + pain, + nausea, + diarrhea, No vomiting, No constipation, No GI bleeding Physical Exam Date Time Temp Pulse Resp B/P (MAP) Pulse Ox O2 Delivery O2 Flow Rate FiO2 10/13/16 07:29 36.8 73 18 153/84 (107) 94 Room Air 10/13/16 04:05 95 Room Air 10/13/16 00:10 36.7 63 18 159/84 95 Room Air 10/12/16 23:20 63 10/12/16 23:03 35 10/12/16 23:00 64 16 149/88 95 Room Air 10/12/16 21:29 69 18 140/81 93 Room Air 10/12/16 19:40 45 18 141/69 95 Room Air 10/12/16 17:48 36.6 65 18 149/89 95 Room Air General Appearance: no apparent distress Eyes: PERRL ENT: hearing grossly normal Neck: supple Respiratory/Chest: lungs clear, normal breath sounds Cardiovascular: regular rate, rhythm, no edema, no JVD Abdomen: normal bowel sounds, soft, no organomegaly, no pulsatile mass, + tenderness (right mid/upper quadrant) Neurologic/Psych: alert, normal mood/affect, oriented x 3 Skin: normal color Laboratory Results Last 24 Hours Test 10/12/16 18:15 10/12/16 18:45 10/12/16 18:54 10/13/16 05:13 White Blood Count 7.34 K/uL 8.06 K/uL Red Blood Count 4.71 M/uL 4.56 M/uL Hemoglobin 14.7 g/dL 13.6 g/dL Hematocrit 42.5 % 41.0 % Mean Corpuscular Volume 90.2 fL 89.9 fL Mean Corpuscular Hemoglobin 31.2 pg 29.8 pg Mean Corpuscular Hemoglobin Concent 34.6 g/dl 33.2 g/dl Platelet Count 70 K/uL 73 K/uL Mean Platelet Volume 10.7 fL 10.7 fL Neutrophils (%) (Auto) 57.9 % Lymphocytes (%) (Auto) 30.1 % Monocytes (%) (Auto) 7.9 % Eosinophils (%) (Auto) 3.4 % Basophils (%) (Auto) 0.4 % Neutrophils # (Auto) 4.25 K/uL Lymphocytes # (Auto) 2.21 K/uL Monocytes # (Auto) 0.58 K/uL Eosinophils # (Auto) 0.25 K/uL Basophils # (Auto) 0.03 K/uL RDW Standard Deviation 44.9 fL 44.5 fL RDW Coefficient of Variation 13.5 % 13.4 % Immature Granulocyte % (Auto) 0.3 % Immature Granulocyte # (Auto) 0.02 K/uL Platelet Estimate DECREASED Anisocytosis PRESENT [place] Bodies 2+ Acanthocytes 1+ Sodium Level 143 mmol/L 144 mmol/L Potassium Level 4.0 mmol/L 4.6 mmol/L Chloride Level 107 mmol/L 108 mmol/L Carbon Dioxide Level 31 mmol/L 31 mmol/L Anion Gap 5.0 mmol/L 5.0 mmol/L Blood Urea Nitrogen 16 mg/dl 12 mg/dl Creatinine 0.86 mg/dl 0.83 mg/dl Est Creatinine Clear Calc Drug Dose 111.0 ml/min 114.2 ml/min Estimated GFR () 103.3 104.8 Estimated GFR (Non- 89.1 90.4 BUN/Creatinine Ratio 18.2 14.9 Random Glucose 136 mg/dl 147 mg/dl Calcium Level 8.4 mg/dl 7.9 mg/dl Total Bilirubin 0.3 mg/dl Direct Bilirubin < 0.1 mg/dl Aspartate Amino Transf (AST/SGOT) 13 U/L Alanine Aminotransferase (ALT/SGPT) 17 U/L Alkaline Phosphatase 80 U/L Total Protein 6.7 gm/dl Albumin 3.5 gm/dl Lipase 250 U/L Urine Color DK YELLOW Urine Appearance CLEAR Urine pH 5.5 Urine Specific [place] 1.024 Urine Protein NEG Urine Glucose (UA) NEG Urine Ketones TRACE Urine Occult Blood NEG Urine Nitrite NEG Urine Bilirubin NEG Urine Urobilinogen NEG Urine Leukocyte Esterase NEG Bedside Lactic Acid Venous 1.04 mmol/L Magnesium Level 2.2 mg/dl Impression Patient is a 66 year old male with right mid/upper abdominal pain worse with PO intake with associated nausea, burping, belching, regurgitation and solids dysphagia. On admission, found to have right lower lobe PE. Plan HIDA scan PPI BID Simethicone for gas Stool culture and c.diff if liquid stools/diarrhea develop Antiemetics PRN Symptomatic management GI ok for clear liquids No NSAIDs He will need outpatient colonoscopy and EGD - we suggest unless an emergency these be postponed due to right lower lobe PE. I performed a history and physical examination of the patient. I have discussed the patient's case, impression and plan with Dolly HA. Her note reflects my findings and plan. Will add EGD to his out patient colonoscopy. Vish Harris MD
--- NOTE | 2016-10-13 11:01 | Oncology Consultation ---
Oncology/Heme Consultation Date of Consultation: Oct 13, 2016. Attending Physician: Luis Raphael MD, PhD Reason for Consultation: Pulmonary embolism Immune thrombocytopenia purpura History of Present Illness Mr. 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 He has required treatment in the past and has had a splenectomy. In recent years, his platelets have ranged from the 70s to the low 100s. He also has a history of a pulmonary embolism a few years ago following knee surgery. He was treated with coumadin and fully recovered. In mid -September of this year, he was hospitalized for a few days for diverticulitis. Since that time, he has developed chest and abdominal pain. He presented to the ER here yesterday and was found to have multiple scattered subsegmental PEs. He was started on Lovenox overnight. He denies any recent bleeding issues or infections. Past Medical/Surgical History Medical Problems: (1) Asplenia Status: Acute (2) Diverticulitis Status: Acute (3) Nausea Status: Acute (4) RUQ abdominal pain Status: Acute Family History Cancer Diabetes mellitus Heart disease Hypertension Social History Smoking Status: Current Every Day Smoker Drug Use: none Marital Status: Housing Status: lives with significant other Occupation Status: employed Allergies Coded Allergies: Ciprofloxacin (Unverified Adverse Reaction, Severe, BURNING STOMACH, ) Uncoded Allergies: SNAILS (Allergy, Severe, ANAPHYLAXIS, 09/16/16) Home Medications Scheduled Atorvastatin (Lipitor), 40 MG PO DAILY Cholecalciferol (Vitamin D 1000 Unit), 1,000 INTER.UNIT PO DAILY Fluticasone Furoate (Inhalatio (Arnuity Ellipta), 1 INHA PO DAILY Insulin Isophane (Human) (Humulin N Kwikpen), 18 UNITS SQ HS Lisinopril (Lisinopril), 10 MG PO DAILY Metformin Hcl (Glucophage), 1,000 MG PO BID Metoprolol Succinate (Metoprolol Succinate ER), 12.5 MG PO DAILY Multivitamins/Minerals (Mvi With Minerals), 1 TAB PO DAILY Ocuvite Preservision (Ocuvite Preservision), 1 TAB PO DAILY Pimozide (Pimozide), 1 TAB PO BID Prednisolone Acetate (Prednisolone Acetate), 1 DROPS OPB DAILY Scheduled PRN Albuterol Hfa (Ventolin Hfa), 2 PUFFS INH Q4 PRN for SOB/Wheezing Current Inpatient Medications Current Inpatient Medications Medications (Trade) Dose Ordered Sig/Jadon Route Start Time Stop Time Status Last Admin Dose Admin Ioversol (Optiray 320) 111 ml UD PRN IV 10/12/16 20:00 10/16/16 19:59 Acetaminophen (Tylenol Tab) 650 mg Q4H PRN PO 10/12/16 23:00 11/11/16 22:59 10/13/16 08:35 650 MG Al Hydrox/Mg Hydrox/Simethicone (Maalox Max Susp) 15 ml Q4H PRN PO 10/12/16 23:00 11/11/16 22:59 Magnesium Hydroxide (Milk Of Magnesia Susp) 30 ml Q12H PRN PO 10/12/16 23:00 11/11/16 22:59 Ondansetron HCl (Zofran Inj) 4 mg Q6H PRN IV 10/12/16 23:00 11/11/16 22:59 Polyethylene (Miralax Powder Packet) 17 gm DAILY PRN PO 10/12/16 23:00 11/11/16 22:59 Morphine Sulfate (MoRPHine SULFATE INJ) 3 mg Q3H PRN IV 10/12/16 23:15 10/26/16 23:14 10/13/16 01:12 3 MG Sodium Chloride 1,000 ml @ 100 mls/hr Q10H IV 10/13/16 00:45 11/12/16 00:44 10/13/16 01:00 100 MLS/HR Albuterol (Ventolin Hfa Inhaler) 2 puffs Q4 PRN INH 10/12/16 23:15 11/11/16 23:14 Atorvastatin Calcium (Lipitor Tab) 40 mg DAILY PO 10/13/16 09:00 11/12/16 08:59 10/13/16 08:37 40 MG Lisinopril (Zestril Tab) 10 mg DAILY PO 10/13/16 09:00 11/12/16 08:59 10/13/16 08:36 10 MG Metoprolol Succinate (Toprol Xl Tab) 12.5 mg DAILY PO 10/13/16 09:00 11/12/16 08:59 10/13/16 08:36 12.5 MG Prednisolone Acetate (Pred Forte 1% Oph Susp) 1 drops DAILY OPB 10/13/16 09:00 11/12/16 08:59 10/13/16 08:35 1 DROPS Miscellaneous Information (Order Awaiting Action) 1 ea QS N/A 10/13/16 00:45 11/12/16 00:44 Miscellaneous Information (Order Awaiting Action) 1 ea QS N/A 10/13/16 00:45 11/12/16 00:44 Enoxaparin Sodium (Lovenox Inj) 120 mg Q12 SQ 10/13/16 00:45 11/12/16 00:44 10/13/16 01:00 120 MG Miscellaneous (Iv Fluids Completed) 1 ea PRN PRN N/A 10/12/16 23:45 10/12/17 23:44 Pantoprazole Sodium 40 mg/ Syringe 10 ml @ 5 mls/min DAILY@09,21 IV 10/13/16 21:00 11/12/16 20:59 UNV Review of Systems Constitutional: No fever, No chills, No fatigue ENT: No unusual epistaxis, No sore throat Respiratory: No cough, No shortness of breath, No hemoptysis Cardiovascular: + chest pain Abdomen: + pain (right upper quadrant), No diarrhea, No GI bleeding Musculoskeletal: + joint pain, + muscle pain Genitourinary - Male: No hematuria, No dysuria Hematologic / Lymphatic: No abnormal bleeding/bruising, No swollen lymph nodes Integumentary: No rash Physical Exam Date Time Temp Pulse Resp B/P (MAP) Pulse Ox O2 Delivery O2 Flow Rate FiO2 10/13/16 07:29 36.8 73 18 153/84 (107) 94 Room Air 10/13/16 04:05 95 Room Air 10/13/16 00:10 36.7 63 18 159/84 95 Room Air 10/12/16 23:20 63 10/12/16 23:03 35 10/12/16 23:00 64 16 149/88 95 Room Air 10/12/16 21:29 69 18 140/81 93 Room Air 10/12/16 19:40 45 18 141/69 95 Room Air 10/12/16 17:48 36.6 65 18 149/89 95 Room Air General Appearance: WD/WN, no apparent distress ENT: pharynx normal (no oral petechiae) Respiratory/Chest: lungs clear Cardiovascular: regular rate, rhythm Abdomen/GI: soft, + tenderness (RUQ, mild) Extremities/Musculoskelatal: no pedal edema Neurologic/Psych: alert, oriented x 3 Skin: no rash Lymphatic: no adenopathy Laboratory Results Last 24 Hours Test 10/12/16 18:15 10/12/16 18:45 10/12/16 18:54 10/13/16 05:13 White Blood Count 7.34 K/uL 8.06 K/uL Red Blood Count 4.71 M/uL 4.56 M/uL Hemoglobin 14.7 g/dL 13.6 g/dL Hematocrit 42.5 % 41.0 % Mean Corpuscular Volume 90.2 fL 89.9 fL Mean Corpuscular Hemoglobin 31.2 pg 29.8 pg Mean Corpuscular Hemoglobin Concent 34.6 g/dl 33.2 g/dl Platelet Count 70 K/uL 73 K/uL Mean Platelet Volume 10.7 fL 10.7 fL Neutrophils (%) (Auto) 57.9 % Lymphocytes (%) (Auto) 30.1 % Monocytes (%) (Auto) 7.9 % Eosinophils (%) (Auto) 3.4 % Basophils (%) (Auto) 0.4 % Neutrophils # (Auto) 4.25 K/uL Lymphocytes # (Auto) 2.21 K/uL Monocytes # (Auto) 0.58 K/uL Eosinophils # (Auto) 0.25 K/uL Basophils # (Auto) 0.03 K/uL RDW Standard Deviation 44.9 fL 44.5 fL RDW Coefficient of Variation 13.5 % 13.4 % Immature Granulocyte % (Auto) 0.3 % Immature Granulocyte # (Auto) 0.02 K/uL Platelet Estimate DECREASED Anisocytosis PRESENT [place] Bodies 2+ Acanthocytes 1+ Sodium Level 143 mmol/L 144 mmol/L Potassium Level 4.0 mmol/L 4.6 mmol/L Chloride Level 107 mmol/L 108 mmol/L Carbon Dioxide Level 31 mmol/L 31 mmol/L Anion Gap 5.0 mmol/L 5.0 mmol/L Blood Urea Nitrogen 16 mg/dl 12 mg/dl Creatinine 0.86 mg/dl 0.83 mg/dl Est Creatinine Clear Calc Drug Dose 111.0 ml/min 114.2 ml/min Estimated GFR () 103.3 104.8 Estimated GFR (Non- 89.1 90.4 BUN/Creatinine Ratio 18.2 14.9 Random Glucose 136 mg/dl 147 mg/dl Calcium Level 8.4 mg/dl 7.9 mg/dl Total Bilirubin 0.3 mg/dl Direct Bilirubin < 0.1 mg/dl Aspartate Amino Transf (AST/SGOT) 13 U/L Alanine Aminotransferase (ALT/SGPT) 17 U/L Alkaline Phosphatase 80 U/L Total Protein 6.7 gm/dl Albumin 3.5 gm/dl Lipase 250 U/L Urine Color DK YELLOW Urine Appearance CLEAR Urine pH 5.5 Urine Specific [place] 1.024 Urine Protein NEG Urine Glucose (UA) NEG Urine Ketones TRACE Urine Occult Blood NEG Urine Nitrite NEG Urine Bilirubin NEG Urine Urobilinogen NEG Urine Leukocyte Esterase NEG Bedside Lactic Acid Venous 1.04 mmol/L Magnesium Level 2.2 mg/dl Assessment & Plan 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 As a result, he is indicated for indefinite anticoagulation. Given his history of ITP and the potential for an unanticipated relapse (he has a history of platelet counts in the 20-30 range during relapses in the past), I would prefer he use an anticoagulant that is reversible. As a result, I suggest he take Coumadin. I understand he is ordered for a HIDA scan for possible cholecystitis. Unless he has an emergent need for abdominal surgery, I would suggest waiting until he has received at least 6 weeks and ideally 3 months of anticoagulation. If he requires emergent surgery, I would switch his anticoagulation from Lovenox to heparin so it can be continued as long as possible prior to surgery. It should then be restarted as soon as feasible.
--- NOTE | 2016-10-13 14:13 | Hospitalist Progress Note ---
Hospitalist Progress Note Date of Service Oct 13, 2016. Subjective Pt evaluation today including: conversation w/ patient, conversation w/ family , physical exam, chart review, lab review, review of studies, conversation w/ provider contracting consultant, review of inpatient medication list Patient reports continued right lower abdominal pain that he describes as a dull ache. The pain is constant. he rates it as a 3 or 4 out of 10. He is also had intermittent diarrhea and dark stools. He denies any fever or chills. Denies any chest pain or pressure. No shortness of breath. He does complain of continued nausea. Symptoms are worse with eating. Additional Comments: 6 system review negative. Please see pertinent positives in the history of present illness section. Objective Vital Signs Date Time Temp Pulse Resp B/P (MAP) Pulse Ox O2 Delivery O2 Flow Rate FiO2 10/13/16 12:00 Room Air 10/13/16 11:25 36.8 43 20 153/73 (99) 96 Room Air 10/13/16 08:00 Room Air 10/13/16 07:29 36.8 73 18 153/84 (107) 94 Room Air 10/13/16 04:05 95 Room Air 10/13/16 00:10 36.7 63 18 159/84 95 Room Air 10/12/16 23:20 63 10/12/16 23:03 35 10/12/16 23:00 64 16 149/88 95 Room Air 10/12/16 21:29 69 18 140/81 93 Room Air 10/12/16 19:40 45 18 141/69 95 Room Air 10/12/16 17:48 36.6 65 18 149/89 95 Room Air Physical Exam General Appearance: no apparent distress Eyes: EOMI Respiratory/Chest: chest non-tender, lungs clear Cardiovascular: regular rate, rhythm Abdomen: non tender, soft, + pertinent finding (bowel sounds hypoactive) Extremities: non-tender, no pedal edema Neurologic/Psychiatric: no motor/sensory deficits, oriented x 3 Skin: warm/dry Laboratory Results 10/13/16 05:13 10/13/16 05:13 Test 10/12/16 18:15 10/12/16 18:45 10/12/16 18:54 10/13/16 05:13 Immature Granulocyte % (Auto) 0.3 % White Blood Count 7.34 K/uL (4.8-10.8) Red Blood Count 4.71 M/uL (4.7-6.1) 4.56 M/uL (4.7-6.1) Hemoglobin 14.7 g/dL (14.0-18.0) Hematocrit 42.5 % (42-52) Mean Corpuscular Volume 90.2 fL (80-100) 89.9 fL (80-100) Mean Corpuscular Hemoglobin 31.2 pg (25-34) 29.8 pg (25-34) Mean Corpuscular Hemoglobin Concent 34.6 g/dl (32-36) 33.2 g/dl (32-36) Platelet Count 70 K/uL (130-400) Mean Platelet Volume 10.7 fL (7.4-10.4) 10.7 fL (7.4-10.4) Neutrophils (%) (Auto) 57.9 % Lymphocytes (%) (Auto) 30.1 % Monocytes (%) (Auto) 7.9 % Eosinophils (%) (Auto) 3.4 % Basophils (%) (Auto) 0.4 % Neutrophils # (Auto) 4.25 K/uL (1.4-6.5) Lymphocytes # (Auto) 2.21 K/uL (1.2-3.4) Monocytes # (Auto) 0.58 K/uL (0.11-0.59) Eosinophils # (Auto) 0.25 K/uL (0-0.5) Basophils # (Auto) 0.03 K/uL (0-0.2) Immature Granulocyte # (Auto) 0.02 K/uL (0.00-0.02) Platelet Estimate DECREASED Anisocytosis PRESENT [place] Bodies 2+ Acanthocytes 1+ Total Bilirubin 0.3 mg/dl (0.2-1) Direct Bilirubin < 0.1 mg/dl (0-0.2) Aspartate Amino Transf (AST/SGOT) 13 U/L (15-37) Alanine Aminotransferase (ALT/SGPT) 17 U/L (12-78) Alkaline Phosphatase 80 U/L (45-117) Total Protein 6.7 gm/dl (6.4-8.2) Albumin 3.5 gm/dl (3.4-5.0) Lipase 250 U/L (73-393) Urine Color DK YELLOW Urine Appearance CLEAR (CLEAR) Urine pH 5.5 (4.5-7.5) Urine Specific [place] 1.024 (1.000-1.030) Urine Protein NEG (NEG) Urine Glucose (UA) NEG (NEG) Urine Ketones TRACE (NEG) Urine Occult Blood NEG (NEG) Urine Nitrite NEG (NEG) Urine Bilirubin NEG (NEG) Urine Urobilinogen NEG (NEG) Urine Leukocyte Esterase NEG (NEG) Bedside Lactic Acid Venous 1.04 mmol/L (0.90-1.70) RDW Standard Deviation 44.5 fL (36.4-46.3) RDW Coefficient of Variation 13.4 % (11.5-14.5) Anion Gap 5.0 mmol/L (3-11) Est Creatinine Clear Calc Drug Dose 114.2 ml/min Estimated GFR () 104.8 Estimated GFR (Non- 90.4 BUN/Creatinine Ratio 14.9 (10-20) Calcium Level 7.9 mg/dl (8.5-10.1) Magnesium Level 2.2 mg/dl (1.8-2.4) Last 24 Hours Test 10/12/16 18:15 10/12/16 18:45 10/12/16 18:54 10/13/16 05:13 White Blood Count 7.34 K/uL 8.06 K/uL Red Blood Count 4.71 M/uL 4.56 M/uL Hemoglobin 14.7 g/dL 13.6 g/dL Hematocrit 42.5 % 41.0 % Mean Corpuscular Volume 90.2 fL 89.9 fL Mean Corpuscular Hemoglobin 31.2 pg 29.8 pg Mean Corpuscular Hemoglobin Concent 34.6 g/dl 33.2 g/dl Platelet Count 70 K/uL 73 K/uL Mean Platelet Volume 10.7 fL 10.7 fL Neutrophils (%) (Auto) 57.9 % Lymphocytes (%) (Auto) 30.1 % Monocytes (%) (Auto) 7.9 % Eosinophils (%) (Auto) 3.4 % Basophils (%) (Auto) 0.4 % Neutrophils # (Auto) 4.25 K/uL Lymphocytes # (Auto) 2.21 K/uL Monocytes # (Auto) 0.58 K/uL Eosinophils # (Auto) 0.25 K/uL Basophils # (Auto) 0.03 K/uL RDW Standard Deviation 44.9 fL 44.5 fL RDW Coefficient of Variation 13.5 % 13.4 % Immature Granulocyte % (Auto) 0.3 % Immature Granulocyte # (Auto) 0.02 K/uL Platelet Estimate DECREASED Anisocytosis PRESENT [place] Bodies 2+ Acanthocytes 1+ Sodium Level 143 mmol/L 144 mmol/L Potassium Level 4.0 mmol/L 4.6 mmol/L Chloride Level 107 mmol/L 108 mmol/L Carbon Dioxide Level 31 mmol/L 31 mmol/L Anion Gap 5.0 mmol/L 5.0 mmol/L Blood Urea Nitrogen 16 mg/dl 12 mg/dl Creatinine 0.86 mg/dl 0.83 mg/dl Est Creatinine Clear Calc Drug Dose 111.0 ml/min 114.2 ml/min Estimated GFR () 103.3 104.8 Estimated GFR (Non- 89.1 90.4 BUN/Creatinine Ratio 18.2 14.9 Random Glucose 136 mg/dl 147 mg/dl Calcium Level 8.4 mg/dl 7.9 mg/dl Total Bilirubin 0.3 mg/dl Direct Bilirubin < 0.1 mg/dl Aspartate Amino Transf (AST/SGOT) 13 U/L Alanine Aminotransferase (ALT/SGPT) 17 U/L Alkaline Phosphatase 80 U/L Total Protein 6.7 gm/dl Albumin 3.5 gm/dl Lipase 250 U/L Urine Color DK YELLOW Urine Appearance CLEAR Urine pH 5.5 Urine Specific [place] 1.024 Urine Protein NEG Urine Glucose (UA) NEG Urine Ketones TRACE Urine Occult Blood NEG Urine Nitrite NEG Urine Bilirubin NEG Urine Urobilinogen NEG Urine Leukocyte Esterase NEG Bedside Lactic Acid Venous 1.04 mmol/L Magnesium Level 2.2 mg/dl Assessment and Plan 66-year-old male presented to the ED last night with continued right lower abdominal pain, nausea and diarrhea. Recent history of diverticulitis approximately 1 month ago treated with antibiotics. He says that the pain never really got better in the suprapubic region. It seems to have just moved to the right lower quadrant. He denies any fever or chills. No bright red blood in his stool. He does note intermittent dark stools with diarrhea. Abdominal pain-? Possibly gallbladder disease given strong family history -GI consult appreciated -HIDA scan -PPI BID -Simethicone prn -Clear liquids okay -Send fecal occult blood -GI does plan on doing endoscopy and colonoscopy, however they would prefer to wait until his PE is treated for 6 weeks Recurrent PE. According to the patient's history, his last pulmonary embolus was associated with knee surgery. -Hematology consult appreciated. Given history of thrombocytopenia, begin Coumadin for the ease of reversal in case the patient does have bleeding -Continue full dose Lovenox for now. Will start coumadin tomorrow if no need for sx intervention -Follow up HIDA scan. If there is an urgent need for surgery, Lovenox will be switched to heparin drip Diabetes mellitus -Hold outpatient regimen of metformin 1000 mg BID and Humulin 18 units at night -ISS and Accu-Cheks History of asthma -Continue Ellipta -duonebs PRN Reported history of A. fib-rate controlled -Check EKG -Anticoagulation will be started as noted above -Continue metoprolol extended release 12.5 mg daily DVT prophylaxis -Teds, SCDs -Lovenox/Coumadin CODE STATUS -LEVEL I FULL CODE
[2016-10-13] MEDS: PANTOprazole INJ 40 MG in SYRINGE 0 ML IV SCH (20:51)
[2016-10-14] VITALS (9 sets, daily range): BP systolic 131–173; BP diastolic 70–94; PULSE 41–80; TEMP 36.5–37; O2SAT 93–96
[2016-10-14] MEDS: SODIUM CHLORIDE 0.9% 1000ML 1,000 ML IV SCH (05:28)
[2016-10-14] MEDS: ARNUITY~ORDER AWAITING ACTION SCH ×3 (07:25→23:43)
[2016-10-14] MEDS ORDERED: SINCALIDE IV ONE (08:15)
[2016-10-14] MEDS ORDERED: SODIUM CHLORIDE 0.9% IV ONE (08:15)
--- NOTE | 2016-10-14 08:31 | Gastroenterology Progress Note ---
Progress Note Date of Service: Oct 14, 2016 Subjective Pt evaluation today including: conversation w/ patient, conversation w/ family , physical exam, chart review, lab review, review of studies Pt was seen and examined this AM. Family at bedside. Just returned from ECHO, EKG and HIDA scan. Continue to have constant RUQ pain that is dull. Intensified with PO intake with associated upper GI symptoms. No acute events overnight. Denies fever, chills, chest pain, SOB HIDA: Hepatic uptake of radiotracer was prompt and homogeneous. Activity was identified within the common bile duct and gallbladder at 15 minutes. Small bowel activity is first noted at 30 minutes. Following injection of sincalide, borderline delayed gallbladder emptying was noted with ejection fraction of 29%. Normal is greater than 30-35%. Review of Systems Constitutional: No fever, No chills Respiratory: No cough, No shortness of breath Cardiac: No chest pain, No edema Abdomen: + pain, + nausea, No vomiting, No diarrhea, No constipation, No GI bleeding Medications Current Inpatient Medications Medications (Trade) Dose Ordered Sig/Jadon Route Start Time Stop Time Status Last Admin Dose Admin Ioversol (Optiray 320) 111 ml UD PRN IV 10/12/16 20:00 10/16/16 19:59 Acetaminophen (Tylenol Tab) 650 mg Q4H PRN PO 10/12/16 23:00 11/11/16 22:59 10/13/16 08:35 650 MG Al Hydrox/Mg Hydrox/Simethicone (Maalox Max Susp) 15 ml Q4H PRN PO 10/12/16 23:00 11/11/16 22:59 Magnesium Hydroxide (Milk Of Magnesia Susp) 30 ml Q12H PRN PO 10/12/16 23:00 11/11/16 22:59 Ondansetron HCl (Zofran Inj) 4 mg Q6H PRN IV 10/12/16 23:00 11/11/16 22:59 Polyethylene (Miralax Powder Packet) 17 gm DAILY PRN PO 10/12/16 23:00 11/11/16 22:59 Morphine Sulfate (MoRPHine SULFATE INJ) 3 mg Q3H PRN IV 10/12/16 23:15 10/26/16 23:14 10/13/16 01:12 3 MG Albuterol (Ventolin Hfa Inhaler) 2 puffs Q4 PRN INH 10/12/16 23:15 11/11/16 23:14 Atorvastatin Calcium (Lipitor Tab) 40 mg DAILY PO 10/13/16 09:00 11/12/16 08:59 10/13/16 08:37 40 MG Metoprolol Succinate (Toprol Xl Tab) 12.5 mg DAILY PO 10/13/16 09:00 11/12/16 08:59 10/13/16 08:36 12.5 MG Prednisolone Acetate (Pred Forte 1% Oph Susp) 1 drops DAILY OPB 10/13/16 09:00 11/12/16 08:59 10/13/16 08:35 1 DROPS Miscellaneous Information (Order Awaiting Action) 1 ea QS N/A 10/13/16 00:45 11/12/16 00:44 Miscellaneous Information (Order Awaiting Action) 1 ea QS N/A 10/13/16 00:45 11/12/16 00:44 Enoxaparin Sodium (Lovenox Inj) 120 mg Q12 SQ 10/13/16 00:45 11/12/16 00:44 10/13/16 21:36 120 MG Miscellaneous (Iv Fluids Completed) 1 ea PRN PRN N/A 10/12/16 23:45 10/12/17 23:44 Pantoprazole Sodium 40 mg/ Syringe 10 ml @ 5 mls/min BID@0900,2100 IV 10/13/16 21:00 11/12/16 20:59 10/13/16 20:51 5 MLS/MIN Lisinopril (Zestril Tab) 15 mg DAILY PO 10/14/16 09:00 11/12/16 08:59 Sincalide 2.27 mcg/Sodium Chloride 102.27 ml @ 200 mls/ hr TODAY@0815 ONCE IV 10/14/16 08:15 10/14/16 08:45 Objective Vital Signs Date Time Temp Pulse Resp B/P (MAP) Pulse Ox O2 Delivery O2 Flow Rate FiO2 10/14/16 07:27 36.7 42 20 162/70 (100) 96 Room Air 10/14/16 04:07 37.0 68 18 148/78 (101) 95 Room Air 10/14/16 04:00 94 Room Air 10/14/16 00:00 94 Room Air 10/14/16 00:00 94 Room Air 10/13/16 23:06 36.9 70 20 157/86 (109) 95 Room Air 10/13/16 20:00 94 Room Air 10/13/16 18:48 36.6 69 20 152/91 (111) 95 Room Air 10/13/16 16:00 94 Room Air 10/13/16 14:56 36.8 72 18 151/91 (111) 94 Room Air 10/13/16 12:00 Room Air 10/13/16 11:25 36.8 43 20 153/73 (99) 96 Room Air Physical Exam General Appearance: no apparent distress Eyes: PERRL ENT: hearing grossly normal Neck: supple Respiratory/Chest: lungs clear Cardiovascular: regular rate, rhythm Abdomen: non tender, soft, no organomegaly, no pulsatile mass Neurologic/Psych: alert, normal mood/affect, oriented x 3 Skin: normal color, no jaundice Laboratory Results Last 24 Hours Test 10/14/16 07:55 Assessment and Plan Patient is a 66 year old male with right mid/upper abdominal pain worse with PO intake with associated nausea, burping, belching, regurgitation and solids dysphagia. On admission, found to have right lower lobe PE. HIDA - slightly diminished ejection fraction PPI BID Simethicone for gas Stool culture and c.diff if liquid stools/diarrhea develop Antiemetics PRN Symptomatic management GI ok for clear liquids and dietary advancements No NSAIDs Outpatient EGD at the time of colonoscopy. Slightly diminished gallbladder ejection fraction - as this is nonemergent, continue symptomatic therapy and monitor symptoms. Encourage an outpatient surgical consult to discuss cholecystectomy if symptoms persist. Call with any questions or concerns. I have seen, examined and agree with the plan as outlined by DILCIA White as above. -exam reveals soft abd -no pain -pain may be referred pain from PE -PPI for suspected reflux
--- NOTE | 2016-10-14 09:36 | DIAGNOSTIC IMAGING REPORT ---
NUCLEAR MEDICINE HEPATOBILIARY SCAN WITH GALLBLADDER EJECTION FRACTION CLINICAL HISTORY: Right upper quadrant abdominal pain. Normal ultrasound. COMPARISON: Right upper quadrant ultrasound October 11, 2016 and CTA of the abdomen and pelvis October 12, 2016. TECHNIQUE: 5.3 mCi of technetium 99m Choletec IV was injected at 7:30 AM on October 14, 2016. Immediately following injection, imaging of the abdomen was carried out for 60 minutes in the anterior projection. At this time, 2.27 mcg of Sincalide was injected IV as per protocol. Imaging was performed for an additional 45 minutes to estimate a gallbladder ejection fraction. FINDINGS: Hepatic uptake of radiotracer was prompt and homogeneous. Activity was identified within the common bile duct and gallbladder at 15 minutes. Small bowel activity is first noted at 30 minutes. Following injection of sincalide, borderline delayed gallbladder emptying was noted with ejection fraction of 29%. Normal is greater than 30-35%. IMPRESSION: 1. No evidence of acute cholecystitis. 2. Borderline diminished gallbladder ejection fraction of 29%. Electronically signed by: Toni Box M.D. 10/14/2016 9:34 AM Dictated Date/Time: 10/14/2016 9:32 AM
[2016-10-14] MEDS: PANTOprazole INJ 40 MG in SYRINGE 0 ML IV SCH ×2 (10:33→21:16)
[2016-10-14] MEDS: PrednisoLONE ACET 1% OP SUSP 5 ML BTL OPB SCH (10:34)
[2016-10-14] MEDS: LISINOPRIL 10 MG TAB PO SCH (10:35)
[2016-10-14] MEDS: ATORVASTATIN 20 MG TAB PO SCH (10:36)
[2016-10-14] MEDS: ENOXAPARIN 120 MG/0.8 ML SYR SQ SCH ×2 (10:36→22:20)
[2016-10-14] MEDS: METOPROLOL SUCC 25MG EXT REL TAB PO SCH (10:36)
[2016-10-14] MEDS: MoRPHine SULFATE 4 MG/ML 1 ML CARP\\VIAL IV PRN ×2 (11:07→23:29)
--- NOTE | 2016-10-14 11:25 | ECHOCARDIOGRAM REPORT ---
*NOTICE TO RECEIVING LIBERTARIAN AGENCY This information is strictly Confidential and protected under [place] law. [place] law prohibits you from making any further disclosure of this information unless further disclosure is expressly permitted by the written consent of the person to whom it pertains or is authorized by law. A general authorization for the release of medical or other information is not sufficient for this purpose. Hospital accepts no responsibility if the information is made available to any other person, INCLUDING THE PATIENT. Interpretation Summary * Name: BEATRIZ LOPEZ Study Date: 10/14/2016 09:26 AM BP: 162/70 mmHg * Patient Location: [facility]\S\N276\S\2 HR: 42 * : 1950 (M/d/yyyy) Gender: Male Height: 74 in * Age: 66 yrs Ethnicity: CA Weight: 251 lb * Ordering Physician: Satinder Kat * Referring Physician: Abhi Rowell D.O.Int.Med. * Performed By: Malka Lowe RDCS * * Reason For Study: Pulmonary embolism, frequent ventricular ectopy * BSA: 2.4 m2 * The study was technically adequate. * -- Conclusions -- * Sinus rhtym with frequent PVCs noted during the echocardiogram evaluation. * No regional wall motion abnormalities noted. * Left ventricular systolic function is normal. * The LV Ejection Fraction = 55-60%. * The right ventricle is normal in size and function. * Doppler findings do not suggest pulmonary hypertension. * There is trace mitral regurgitation. Procedure Details * A complete two-dimensional transthoracic echocardiogram was performed (2D, M-mode, Doppler and color flow Doppler). Left Ventricle * The left ventricle is normal in size. * There is normal left ventricular wall thickness. * Left ventricular systolic function is normal. * Ejection Fraction = 55-60%. * The left ventricular wall motion is normal. * No regional wall motion abnormalities noted. Right Ventricle * The right ventricle is normal in size and function. Atria * The left atrial size is normal. * Right atrial size is normal. * There is no evidence of atrial septal defect, but resolution does not allow assessment for a patent foramen ovale. Mitral Valve * The mitral valve is normal. * There is no mitral valve stenosis. * There is trace mitral regurgitation. Tricuspid Valve * The tricuspid valve is normal. * There is no tricuspid stenosis. * Significant tricuspid regurgitation is absent. * Doppler findings do not suggest pulmonary hypertension. Aortic Valve * The aortic valve is trileaflet. * Aortic stenosis is absent. * There is no significant aortic regurgitation. Pulmonic Valve * The pulmonary valve is not well seen, but the Doppler examination is normal without significant regurgitation or stenosis. Great Vessels * The aortic root and proximal ascending aorta are normal sized. Pericardium/Pleural * There is no pericardial effusion. Great Vessels * Normal inferior vena cava diameter and respiratory variation suggests normal central venous pressure. * Normal inferior vena cava size and collapsability with sniff indicates a normal right atrial pressure of 3 mmHg MMode 2D Measurements and Calculations IVSd 1.1 cm LVIDd 5.0 cm LVIDs 3.8 cm LVPWd 1.1 cm IVS/LVPW 1.1 FS 24.8 % EDV(Teich) 119.7 ml ESV(Teich) 61.1 ml EF(Teich) 49.0 % EDV(cubed) 127.0 ml ESV(cubed) 53.9 ml EF(cubed) 57.5 % LV mass(C)d 208.8 grams LV mass(C)dI 87.3 grams/m\S\2 SV(Teich) 58.6 ml SI(Teich) 24.5 ml/m\S\2 SV(cubed) 73.1 ml SI(cubed) 30.5 ml/m\S\2 Ao root diam 3.5 cm Ao root area 9.6 cm\S\2 ACS 1.7 cm LA dimension 3.4 cm asc Aorta Diam 3.5 cm LA/Ao 0.99 LVOT diam 2.0 cm LVOT area 3.2 cm\S\2 LVAd ap4 35.0 cm\S\2 LVLd ap4 8.3 cm EDV(MOD-sp4) 121.1 ml EDV(sp4-el) 125.9 ml LVAs ap4 18.5 cm\S\2 LVLs ap4 6.6 cm ESV(MOD-sp4) 47.7 ml ESV(sp4-el) 43.9 ml EF(MOD-sp4) 60.6 % EF(sp4-el) 65.2 % LVAd ap2 31.1 cm\S\2 LVLd ap2 8.4 cm EDV(MOD-sp2) 93.9 ml EDV(sp2-el) 97.3 ml LVAs ap2 17.6 cm\S\2 LVLs ap2 7.4 cm ESV(MOD-sp2) 35.6 ml ESV(sp2-el) 35.5 ml EF(MOD-sp2) 62.1 % EF(sp2-el) 63.5 % LVLd %diff 1.8 % EDV(MOD-bp) 107.4 ml LVLs %diff 10.9 % ESV(MOD-bp) 40.6 ml EF(MOD-bp) 62.2 % SV(MOD-sp4) 73.5 ml SI(MOD-sp4) 30.7 ml/m\S\2 SV(MOD-sp2) 58.3 ml SI(MOD-sp2) 24.3 ml/m\S\2 SV(MOD-bp) 66.8 ml SI(MOD-bp) 27.9 ml/m\S\2 SV(sp4-el) 82.0 ml SI(sp4-el) 34.3 ml/m\S\2 SV(sp2-el) 61.7 ml SI(sp2-el) 25.8 ml/m\S\2 Doppler Measurements and Calculations MV E max alma 76.0 cm/sec MV A max alma 55.8 cm/sec MV E/A 1.4 MV dec time 0.20 sec Ao V2 max 88.2 cm/sec Ao max PG 3.1 mmHg Ao max PG (full) 0.86 mmHg KELSY(V,A) 2.7 cm\S\2 KELSY(V,D) 2.7 cm\S\2 LV V1 max PG 2.3 mmHg LV V1 max 75.0 cm/sec PA V2 max 91.2 cm/sec PA max PG 3.4 mmHg PA acc slope 378.4 cm/sec\S\2 PA acc time 0.16 sec TR max alma 256.5 cm/sec PA pr(Accel) 5.3 mmHg
--- NOTE | 2016-10-14 12:20 | Cardiology Consultation ---
Cardiology Consultation Date of Consultation: Oct 14, 2016 History of Present Illness Mansoor Candelario is a 66 year old male is a 66-year-old male seen in cardiology consultation per the request of Jesse Egan PA-C and Dr Raphael for the evaluation of irregular heart rhythm. The patient seen Dr. Benjamin of our practice before. His office chart was reviewed and patient had initially been seen in consultation in November 2015 for an irregular heart rhythm. At that time his spouse had hurt his irregular heart rhythm when she had the symptoms to his chest with her ear. He was unaware of any subjective palpitations or irregular heartbeat subjectively at that time. At present, he continues to be free of symptoms. Holter monitor performed in 2015 revealed frequent ventricular ectopy a total of 7038 beats with frequent bigeminy and trigeminy. The patient had undergone an exercise stress echocardiogram on 12/09/2015 for further evaluation at which time he demonstrated stable activity tolerance completing 7 minutes on a standard [place] protocol for a peak workload of 8.5 METs. Premature ventricular complexes were noted at rest during the stress test as well as during exercise. The patient was a symptomatically from these. Ejection fraction was normal at that time with appropriate augmentation post exercise. This admission the patient presented with a somewhat focal area of right-sided abdominal pain as well as feelings of abdominal "gurgling". A CT had been performed for evaluation of his abdomen which revealed no acute findings yesterday found to have several small segmental pulmonary emboli within the right lower lobe. The pulmonary infarction was noted. CT scan was also notable for extensive coronary artery calcification. Review of telemetry reveals sinus rhythm with frequent PVCs including isolated PVCs as well as ventricular bigeminy and ventricular couplets. No sustained ventricular tachycardia was noted. History Past Medical History: A long-standing history of immune thrombocytopenia. He recalls having been hospitalized in [place] in 1972 and was treated with immunosuppressive's and ultimately underwent splenectomy in [place] with stabilization of his platelet levels History of diverticulitis Frequent asymptomatic ventricular ectopy Dyslipidemia Type 2 diabetes mellitus Hypertension Past Surgical History: Previous splenectomy Bilateral total knee arthroplasty History of testicular cancer status post orchiectomy Social History: The patient is . His spouse accompanies him at the bedside. She is a retired nurse. 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 Review Of Systems See above for pertinent positives & negatives. A total of 10 systems reviewed and were otherwise negative. Allergies Coded Allergies: Ciprofloxacin (Unverified Adverse Reaction, Severe, BURNING STOMACH, ) Uncoded Allergies: SNAILS (Allergy, Severe, ANAPHYLAXIS, 09/16/16) Medications Reported Home Medications Medications Dose Route/Sig Max Daily Dose Days Date Category Pimozide 2 Mg Tab 1 Tab PO BID 10/12/16 Reported Ocuvite Preservision (Multivitamins/Minerals) 1 Tab Tab 1 Tab PO DAILY 10/12/16 Reported Arnuity Ellipta (Fluticasone Furoate (Inhalatio) 100 Mcg/Act Inh 1 Inha PO DAILY 09/18/16 Rx Mvi With Minerals (Multivitamins/Minerals) Tab 1 Tab PO DAILY 09/16/16 Reported Metoprolol Succinate ER (Metoprolol Succinate) 25 Mg Tabcr 12.5 Mg PO DAILY 09/16/16 Reported Prednisolone Acetate 75 Drops/5 Ml Susp 1 Drops OPB DAILY 09/16/16 Reported Lisinopril 10 Mg Tab 10 Mg PO DAILY 09/16/16 Reported Humulin N Kwikpen (Insulin Isophane (Human)) 100 Unit/Ml Inj 18 Units SQ HS 09/16/16 Reported Ventolin Hfa (Albuterol) 200 Puffs/70625 Mcg Aers 2 Puffs INH Q4 PRN 09/16/16 Reported Vitamin D 1000 Unit (Cholecalciferol) 1,000 Unit Cap 1,000 Inter.unit PO DAILY 09/16/16 Reported Glucophage (Metformin Hcl) 1,000 Mg Tab 1,000 Mg PO BID 12/18/13 Reported Lipitor (Atorvastatin Calcium) 40 Mg Tab 40 Mg PO DAILY 12/18/13 Reported Physical Exam Vital Signs (Last 8hrs): Last 8 Hrs Date Time Temp Pulse Resp B/P (MAP) Pulse Ox O2 Delivery O2 Flow Rate FiO2 10/14/16 10:45 36.8 72 20 173/94 (120) 96 Room Air 10/14/16 08:00 Room Air 10/14/16 07:27 36.7 42 20 162/70 (100) 96 Room Air 10/14/16 04:07 37.0 68 18 148/78 (101) 95 Room Air General Appearance: Alert and Oriented x3. NAD. Head: Normocephalic Atraumatic. Eyes: PERRLA, EOMI, conjunctiva and sclera clear Neck: Supple. No carotid bruits noted. No JVD. No HJD. Respiratory: Breath sounds clear to auscultation bilaterally. No w/r/r. Cardiovascular: Regular rhythm, no murmurs Abdomen: Normal bowel sounds, minimal tenderness Extremities: No edema, no clubbing or cyanosis. distal pulses 2/4 bilaterally. Neuro: No focal deficits. Psychiatric: Normal affect. Data EKG performed today 10/14/16 at 10:16 AM reveals normal sinus rhythm at 66 bpm with left anterior fascicular block, compared to the prior tracing dated 10/13/16 her interventricular complex are no longer present Telemetry as noted above with frequent PVCs. Assessment & Plan Impression: 66-year-old male admitted with right-sided abdominal pain 1. Asymptomatic frequent ventricular ectopy without sustained ventricular tachycardia 2. Preserved LVEF 3. Findings of right segmental pulmonary embolism this admission 4. Immune thrombocytopenia platelet count of 73,000, chronic finding 5. History of splenectomy 1971 or 1972 for treatment of thrombocytopenia Plan: Hematology input noted and appreciated. Agree with treatment with Coumadin. Patient is eager to leave the hospital and although bridging him with heparin potentially be lower risk from a bleeding standpoint because it could be turned off if a bleeding complication occurred, at present, patient is doing well on Lovenox and agree with plan to bridge him and discharge him on Coumadin. Given the risks of long term care social worker anticoagulation on this patient with chronic thrombocytopenia, would recommend close outpatient follow-up and consideration toward stopping Coumadin after 3 months of anticoagulation. The patient is aware to seek emergency care should he have signs of severe bleeding. Due to his long-standing history of thrombocytopenia he is aware of what to watch for. Regarding his frequent ventricular ectopy. He remains asymptomatic from this. He had been placed on low-dose metoprolol succinate last year mg at 12.5daily. His blood pressure has been a little above goal this hospital stay but he has been and some degree of discomfort. It looks as though his lisinopril dose has been modified. If further blood pressure control is necessary, we can go up on the metoprolol 25 mg daily. I do not think it is necessary from a PVC standpoint as he is asymptomatic. CT did note coronary artery calcification. He has a symptomatic from an angina standpoint. Had a nonischemic response to stress testing in December 2015, and he is on appropriate preventative therapy with atorvastatin 40 mg daily I do not think further evaluation for ischemic heart disease is necessary at the present time given his lack of angina symptoms.
[2016-10-14 12:41] LABS: HEMATOCRIT 44.1 % (42-52); MEAN CELL VOLUME 89.8 fL (80-100); MEAN CORPUSCULAR HEMOGLOBIN 30.1 pg (25-34); MEAN CORPUSCULAR HGB CONC 33.6 g/dl (32-36); RED BLOOD COUNT 4.91 M/uL (4.7-6.1); WHITE BLOOD COUNT 6.68 K/uL (4.8-10.8)
--- NOTE | 2016-10-14 12:52 | Progress Note ---
Subjective Date of Service: Oct 14, 2016. Subjective Pt evaluation today including: conversation w/ patient, conversation w/ family , physical exam, chart review, lab review, review of studies, conversation w/ energy sales consultant, review of inpatient medication list Complain of deep right upper quadrant pain, Mild nausea Elevated blood pressure Sometimes bradycardia but no dizziness, chest pain , or palpitations Problem List Medical Problems: (1) Asplenia Status: Acute (2) Diverticulitis Status: Acute (3) Nausea Status: Acute (4) RUQ abdominal pain Status: Acute Review of Systems Constitutional: No fever, No chills, No sweats, No weight loss, No weakness, No fatigue, No problem reported Eyes: No worsening of vision, No eye pain, No redness, No discharge, No diplopia ENT: No hearing loss, No unusual epistaxis, No nasal symptoms, No sore throat, No tinnitus, No dental problems, No trouble swallowing Respiratory: No cough, No sputum, No wheezing, No shortness of breath, No dyspnea on exertion, No dyspnea at rest, No hemoptysis Cardiac: No chest pain, No orthopnea, No PND, No edema, No claudication, No palpitations Abdomen: + pain, No nausea, No vomiting, No diarrhea, No constipation Musculoskeletal: No joint pain, No muscle pain, No swelling, No calf pain Male : No dysuria, No urinary frequency, No incontinence, No nocturia more than once/night, No slowing stream, No hematuria Neurologic: No memory loss, No paralysis, No weakness, No numbness/tingling, No vertigo, No balance problems Psychiatric: No depression symptoms, No anhedonism, No anxiety, No insomnia, No substance abuse Heme: No abnormal bleeding/bruising, No clotting problems, No swollen lymph nodes, No night sweats Endo: No fatigue, No excessive thirst, No excessive urination Skin: No rash, No itch, No new/changing skin lesions, No color change, No bleeding Objective Vital Signs Date Time Temp Pulse Resp B/P (MAP) Pulse Ox O2 Delivery O2 Flow Rate FiO2 10/14/16 10:45 36.8 72 20 173/94 (120) 96 Room Air 10/14/16 08:00 Room Air 10/14/16 07:27 36.7 42 20 162/70 (100) 96 Room Air 10/14/16 04:07 37.0 68 18 148/78 (101) 95 Room Air 10/14/16 04:00 94 Room Air 10/14/16 00:00 94 Room Air 10/14/16 00:00 94 Room Air 10/13/16 23:06 36.9 70 20 157/86 (109) 95 Room Air 10/13/16 20:00 94 Room Air 10/13/16 18:48 36.6 69 20 152/91 (111) 95 Room Air 10/13/16 16:00 94 Room Air 10/13/16 14:56 36.8 72 18 151/91 (111) 94 Room Air Physical Exam General Appearance: WD/WN, no apparent distress, + obese Eyes: normal inspection, PERRL, EOMI, sclerae normal ENT: normal ENT inspection, hearing grossly normal, pharynx normal Neck: supple, no adenopathy, thyroid normal, no JVD, no carotid bruits, trachea midline Respiratory/Chest: chest non-tender, normal breath sounds, no respiratory distress, no accessory muscle use, + decreased breath sounds Cardiovascular: regular rate, rhythm, no edema, no gallop, no JVD, no murmur Abdomen: normal bowel sounds, soft, no organomegaly, no pulsatile mass, + tenderness (deep tender, mild) Extremities: normal range of motion, non-tender, normal inspection, no pedal edema, no calf tenderness, normal capillary refill, pelvis stable Neurologic/Psychiatric: window/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 clerk II-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 Per report he has recent history of diverticulitis approximately 1 month ago treated with antibiotics. He says that the pain never really got better in the suprapubic region. It seems to have just moved to the right lower quadrant. He denies any fever or chills. No bright red blood in his stool. He does note intermittent dark stools with diarrhea. right upper Abdominal pain-? Possibly gallbladder disease given strong family history, stable HIDA was done today 10/14/2016 per report 1. No evidence of acute cholecystitis. 2. Borderline diminished gallbladder ejection fraction of 29%. Patient still have symptom of deep pain and nausea, agreed to have surgeon consult Recurrent PE hx of ITP. Stable, According to the patient's history, his last pulmonary embolus was associated with knee surgery. Diabetes mellitus continue current medication History of asthma continue current medication history of A. fib-rate controlled, stable Continue PPI BID advance diet as tolerated GI does plan on doing endoscopy and colonoscopy, however they would prefer to wait until his PE is treated for 6 weeks Follow-up surgeon input for right upper quadrant abdominal pain Hematology consult appreciated. Given history of thrombocytopenia, begin Coumadin for the ease of reversal in case the patient does have bleeding, patient preferred follow-up Coumadin in hospital Coumadin clinic, appointment arranged by Navigator -Continue full dose Lovenox for now. Will start coumadin soon if no need for sx intervention Discussed with , sister patient and , answered all the questions. Sister is a nurse practice in [place] system Continued [facility] stay due to: home environment unsafe for pt Discharge planning: home
[2016-10-14 13:04] LABS: BASO % 0.6 %; BASO ABS # 0.04 K/uL (0-0.2); COMPLETE YES; EOS % 0.9 %; IG% 0.4 %; LYMPH % 30.8 %; LYMPH ABS # 2.06 K/uL (1.2-3.4); MEAN PLATELET VOLUME 10.8 fL (7.4-10.4); MONO % 4.8 %; NEUT % 62.5 %; PLATELET COUNT 71 K/uL (130-400)
[2016-10-14 13:16] LABS: BUN/CREATININE RATIO 11.8 (10-20); CALCIUM 8.2 mg/dl (8.5-10.1); CREATININE 0.73 mg/dl (0.60-1.40); POTASSIUM 4.1 mmol/L (3.5-5.1)
[2016-10-14 13:18] LABS: ALB/GLOB RATIO 1.2 (0.9-2)
[2016-10-14] MEDS ORDERED: PROMETHAZINE HCL 25 MG TAB PO PRN (13:30)
--- NOTE | 2016-10-14 13:43 | Medical Consult ---
Consultation Date of Consultation: Oct 14, 2016. Attending Physician: Luis Raphael MD, PhD History of Present Illness 66 y/o diabetic male with ITP treated 1 month ago for diverticulitis returned to ED 2 days ago complaining of bloating, belching and RUQ that has been increasing over the last several weeks. Stopping Victoza did not change his symptoms. Denies fatty food intolerance. Has had some vague discomfort in the RUQ for some time prior to this. Has 5 family members that have had cholecystectomy. We were asked to see him for equivocal HIDA. He is also on Lovenox transitioning to coumadin for newly diagnosed RLL PE. He has been tolerating liquids, is hungry for more and hopes to be discharged soon. Outpatient ultrasound was negative, he was then referred to the ED. Past Medical/Surgical History Medical Problems: (1) Asthma (2) Diabetes (3) Hypertension (4) ITP (idiopathic thrombocytopenic purpura) (5) Pneumonia (6) Pulmonary embolism (7) sigmoid diverticulitis , (8) sigmoid diverticulitis Surgical Problems: (1) History of cornea transplant (2) History of hernia surgery (3) History of knee replacement (4) splenectomy Family History Cancer Diabetes mellitus Heart disease Hypertension Social History Smoking Status: Current Every Day Smoker Drug Use: none Marital Status: Housing Status: lives with significant other Occupation Status: employed Allergies Coded Allergies: Ciprofloxacin (Unverified Adverse Reaction, Severe, BURNING STOMACH, ) Uncoded Allergies: SNAILS (Allergy, Severe, ANAPHYLAXIS, 09/16/16) Current Inpatient Medications Current Inpatient Medications Medications (Trade) Dose Ordered Sig/Jadon Route Start Time Stop Time Status Last Admin Dose Admin Ioversol (Optiray 320) 111 ml UD PRN IV 10/12/16 20:00 10/16/16 19:59 Acetaminophen (Tylenol Tab) 650 mg Q4H PRN PO 10/12/16 23:00 11/11/16 22:59 10/13/16 08:35 650 MG Al Hydrox/Mg Hydrox/Simethicone (Maalox Max Susp) 15 ml Q4H PRN PO 10/12/16 23:00 11/11/16 22:59 Magnesium Hydroxide (Milk Of Magnesia Susp) 30 ml Q12H PRN PO 10/12/16 23:00 11/11/16 22:59 Ondansetron HCl (Zofran Inj) 4 mg Q6H PRN IV 10/12/16 23:00 11/11/16 22:59 Polyethylene (Miralax Powder Packet) 17 gm DAILY PRN PO 10/12/16 23:00 11/11/16 22:59 Morphine Sulfate (MoRPHine SULFATE INJ) 3 mg Q3H PRN IV 10/12/16 23:15 10/26/16 23:14 10/14/16 11:07 3 MG Albuterol (Ventolin Hfa Inhaler) 2 puffs Q4 PRN INH 10/12/16 23:15 11/11/16 23:14 Atorvastatin Calcium (Lipitor Tab) 40 mg DAILY PO 10/13/16 09:00 11/12/16 08:59 10/14/16 10:36 40 MG Metoprolol Succinate (Toprol Xl Tab) 12.5 mg DAILY PO 10/13/16 09:00 11/12/16 08:59 10/14/16 10:36 12.5 MG Prednisolone Acetate (Pred Forte 1% Oph Susp) 1 drops DAILY OPB 10/13/16 09:00 11/12/16 08:59 10/14/16 10:34 1 DROPS Miscellaneous Information (Order Awaiting Action) 1 ea QS N/A 10/13/16 00:45 11/12/16 00:44 Miscellaneous Information (Order Awaiting Action) 1 ea QS N/A 10/13/16 00:45 11/12/16 00:44 Enoxaparin Sodium (Lovenox Inj) 120 mg Q12 SQ 10/13/16 00:45 11/12/16 00:44 10/14/16 10:36 120 MG Miscellaneous (Iv Fluids Completed) 1 ea PRN PRN N/A 10/12/16 23:45 10/12/17 23:44 Pantoprazole Sodium 40 mg/ Syringe 10 ml @ 5 mls/min BID@0900,2100 IV 10/13/16 21:00 11/12/16 20:59 10/14/16 10:33 5 MLS/MIN Lisinopril (Zestril Tab) 15 mg DAILY PO 10/14/16 09:00 11/12/16 08:59 10/14/16 10:35 15 MG Review of Systems Constitutional: No fever, No chills Respiratory: + problem reported (h/o PE), No cough Cardiovascular: No chest pain Abdomen: + nausea, + problem reported (previous colonoscopy/polypectomy), No vomiting, No GI bleeding Physical Exam Date Time Temp Pulse Resp B/P (MAP) Pulse Ox O2 Delivery O2 Flow Rate FiO2 10/14/16 12:56 80 134/75 (94) 10/14/16 10:45 36.8 72 20 173/94 (120) 96 Room Air 10/14/16 08:00 Room Air 10/14/16 07:27 36.7 42 20 162/70 (100) 96 Room Air 10/14/16 04:07 37.0 68 18 148/78 (101) 95 Room Air 10/14/16 04:00 94 Room Air 10/14/16 00:00 94 Room Air 10/14/16 00:00 94 Room Air 10/13/16 23:06 36.9 70 20 157/86 (109) 95 Room Air 10/13/16 20:00 94 Room Air 10/13/16 18:48 36.6 69 20 152/91 (111) 95 Room Air 10/13/16 16:00 94 Room Air 10/13/16 14:56 36.8 72 18 151/91 (111) 94 Room Air General Appearance: WD/WN, no apparent distress ENT: normal ENT inspection Abdomen/GI: soft, + tenderness (minimal RUQ), + distended (minimal) Skin: normal color, warm/dry Laboratory Results Last 24 Hours Test 10/14/16 12:23 White Blood Count 6.68 K/uL Red Blood Count 4.91 M/uL Hemoglobin 14.8 g/dL Hematocrit 44.1 % Mean Corpuscular Volume 89.8 fL Mean Corpuscular Hemoglobin 30.1 pg Mean Corpuscular Hemoglobin Concent 33.6 g/dl Platelet Count 71 K/uL Mean Platelet Volume 10.8 fL Neutrophils (%) (Auto) 62.5 % Lymphocytes (%) (Auto) 30.8 % Monocytes (%) (Auto) 4.8 % Eosinophils (%) (Auto) 0.9 % Basophils (%) (Auto) 0.6 % Neutrophils # (Auto) 4.17 K/uL Lymphocytes # (Auto) 2.06 K/uL Monocytes # (Auto) 0.32 K/uL Eosinophils # (Auto) 0.06 K/uL Basophils # (Auto) 0.04 K/uL RDW Standard Deviation 42.9 fL RDW Coefficient of Variation 13.1 % Immature Granulocyte % (Auto) 0.4 % Immature Granulocyte # (Auto) 0.03 K/uL Sodium Level 145 mmol/L Potassium Level 4.1 mmol/L Chloride Level 110 mmol/L Carbon Dioxide Level 28 mmol/L Anion Gap 7.0 mmol/L Blood Urea Nitrogen 9 mg/dl Creatinine 0.73 mg/dl Est Creatinine Clear Calc Drug Dose 130.2 ml/min Estimated GFR () 110.5 Estimated GFR (Non- 95.3 BUN/Creatinine Ratio 11.8 Random Glucose 151 mg/dl Calcium Level 8.2 mg/dl Albumin 3.7 gm/dl NUCLEAR MEDICINE HEPATOBILIARY SCAN WITH GALLBLADDER EJECTION FRACTION CLINICAL HISTORY: Right upper quadrant abdominal pain. Normal ultrasound. COMPARISON: Right upper quadrant ultrasound October 11, 2016 and CTA of the abdomen and pelvis October 12, 2016. TECHNIQUE: 5.3 mCi of technetium 99m Choletec IV was injected at 7:30 AM on October 14, 2016. Immediately following injection, imaging of the abdomen was carried out for 60 minutes in the anterior projection. At this time, 2.27 mcg of Sincalide was injected IV as per protocol. Imaging was performed for an additional 45 minutes to estimate a gallbladder ejection fraction. FINDINGS: Hepatic uptake of radiotracer was prompt and homogeneous. Activity was identified within the common bile duct and gallbladder at 15 minutes. Small bowel activity is first noted at 30 minutes. Following injection of sincalide, borderline delayed gallbladder emptying was noted with ejection fraction of 29%. Normal is greater than 30-35%. IMPRESSION: 1. No evidence of acute cholecystitis. 2. Borderline diminished gallbladder ejection fraction of 29%. Electronically signed by: Toni Box M.D. 10/14/2016 9:34 AM Dictated Date/Time: 10/14/2016 9:32 AM Assessment & Plan RUQ pain, ? biliary dyskinesia PE DM Has been seen by GI and endoscopy planned for next month. No evidence of acute cholecystitis, and given new PE would continue symptomatic treatment for now. We will see him back in the office in a few weeks, preferably after endoscopy if his symptoms are stable.
[2016-10-14] MEDS ORDERED: LOVENOX TEACHING KIT ONE (22:00)
[2016-10-14] MEDS: ONDANSETRON INJ 2 MG/ML 2 ML VIAL IV PRN (23:28)
[2016-10-15 04:53] VITALS: BP 117/78; PULSE 67; TEMP 36.6; O2SAT 93
[2016-10-15 06:18] LABS: HEMATOCRIT 39.3 % (42-52); MEAN CELL VOLUME 89.9 fL (80-100); MEAN CORPUSCULAR HEMOGLOBIN 30.4 pg (25-34); MEAN CORPUSCULAR HGB CONC 33.8 g/dl (32-36); RED BLOOD COUNT 4.37 M/uL (4.7-6.1); WHITE BLOOD COUNT 6.43 K/uL (4.8-10.8)
[2016-10-15 06:19] LABS: MEAN PLATELET VOLUME 10.7 fL (7.4-10.4); PLATELET COUNT 62 K/uL (130-400)
[2016-10-15 06:51] LABS: BUN/CREATININE RATIO 14.7 (10-20); CALCIUM 7.7 mg/dl (8.5-10.1); CREATININE 0.89 mg/dl (0.60-1.40); MAGNESIUM 2.2 mg/dl (1.8-2.4); POTASSIUM 4.1 mmol/L (3.5-5.1)
[2016-10-15 06:53] LABS: BASO % 1.1 %; BASO ABS # 0.07 K/uL (0-0.2); COMPLETE YES; ECHINOCYTES 1+; EOS % 3.9 %; HOWELL-JOLLY BODIES 1+; IG% 0.3 %; LYMPH % 34.5 %; LYMPH ABS # 2.22 K/uL (1.2-3.4); MONO % 10.1 %; NEUT % 50.1 %
[2016-10-15] MEDS: ONDANSETRON INJ 2 MG/ML 2 ML VIAL IV PRN (07:08)
[2016-10-15] MEDS: ACETAMINOPHEN 325 MG TAB PO PRN (07:09)
[2016-10-15] MEDS: ARNUITY~ORDER AWAITING ACTION SCH (07:09)
[2016-10-15] MEDS: LISINOPRIL 10 MG TAB PO SCH (07:17)
[2016-10-15] MEDS: METOPROLOL SUCC 25MG EXT REL TAB PO SCH (07:17)
[2016-10-15 07:20] VITALS: BP 165/97; PULSE 70; TEMP 36.6; O2SAT 93
[2016-10-15] MEDS: ATORVASTATIN 20 MG TAB PO SCH (08:09)
[2016-10-15] MEDS: PANTOprazole INJ 40 MG in SYRINGE 0 ML IV SCH (08:09)
[2016-10-15] MEDS: PrednisoLONE ACET 1% OP SUSP 5 ML BTL OPB SCH (08:09)
[2016-10-15] MEDS: ENOXAPARIN 120 MG/0.8 ML SYR SQ SCH (08:10)
[2016-10-15 10:24] LABS: PROTHROMBIN TIME (PATIENT) 10.5 SECONDS (9.0-12.0)
[2016-10-15 11:29] VITALS: BP 111/60; PULSE 66; TEMP 36.8; O2SAT 94
[2016-10-15] MEDS ORDERED: WARFARIN SOD 5 MG TAB PO SCH ×2 (12:00→16:00)
[2016-10-15] MEDS ORDERED: LSN10 PO (13:43)
[2016-10-15] MEDS ORDERED: LVNIS120 SQ (13:43)
[2016-10-15] MEDS ORDERED: CMD5 PO (13:43)
--- NOTE | 2016-10-15 13:44 | Discharge Instructions ---
Discharge Instructions Date of Service Oct 15, 2016. Admission Reason for Admission: Pe, Ruq Abdominal Pain Discharge Discharge Diagnosis / Problem: (1) RUQ abdominal pain (2) Pulmonary embolism (3) ITP (idiopathic thrombocytopenic purpura) VTE Date & Time Date of VTE Diagnosis: Oct 12, 2016 Time of VTE Diagnosis: 20:19 Discharge Goals Goal(s): Decrease discomfort, Improve function, Increase independence, Improve disease control, Improve nutritional status, Learn about illness, Diagnostic testing, Therapeutic intervention, Prevent Disease Progression, Specific goals Activity Recommendations Activity Limitations: resume your previous activity . Instructions / Follow-Up Instructions / Follow-Up you have right upper Abdominal pain No evidence of acute cholecystitis. Borderline diminished gallbladder ejection fraction of 29%. surgeon consulted no plan to procedure you have Recurrent PE hx of ITP. I am giving you Lovenox and coumadin, Lovenox at least need to be until 2016, and until INR >2 check INR on monday in coumadin clinic , appointment has been set up - you need to follow up with your primary care physician in 1 week, - take medication as instructed, never overdose or any misuse, or take with alcohol, because misuse of medicine may cause organ damage or , call your primary care physician if have questions of medicaitons. - call your primary care physician OR go to local emergency room if has any fever/chill, chest pain, shortness of breathing, nausea/vomiting/abdominal pain , facial droop/slurry speech/local weakness, or if has any questions. - fall precaution - diet as instructed - you need to follow up with your subspecialists such as oncologist, surgeon as instructed - you should understand that it is important to follow up the above instruction , and "not following the above instruction" may cause delayed or missed care of your medical conditions which may cause permanent organ damage and even . Medication Instructions: * Warfarin is a medicine prescribed to prevent blood clots * Warfarin will thin your blood and help prevent new clots * Take your medications exactly as directed * Never skip a dose. Never take a double dose. If you miss a dose, take it as soon as you remember * It is important for your doctor to monitor your prothrombin time (PT). This is a lab test * Keep your appointment for lab tests Risk of Adverse Drug Reactions and Interactions: * Warfarin increases your risk of bleeding * The food you eat and other medications you take can affect how Warfarin works in your body * Ask your doctor about daily aspirin therapy * It is very important to talk with your doctor about all of the other medicines , antibiotics, vitamins or herbal products that you are taking * All of your medication must be approved by your doctor, including new medicines, as well as medicines you have taken before you started taking Warfarin Diet: * In order for Warfarin to work properly, it is important to keep your intake of Vitamin K as consistent as possible * You should avoid any sudden change in Vitamin K intake * Report any significant changes in your diet or weight to your doctor Call your Primary Care doctor if you experience any of the following: * Swelling or Pain in your leg * Sudden, continuous pain deep in a muscle * Pain that worsens when you are active or when you stand still for a long time * Chest Pain * Sudden Shortness of Breath * Rapid or pounding heart beat * Fainting * Dizziness * Cough with blood or bloody sputum * Sweating more than normal * Bruises * Heavy or uncontrolled bleeding * Blood in your urine, stool or vomit * Black or tarry stools Caring for Your Self at Home: * Avoid sitting, standing or lying down for long periods without moving your legs and feet * When traveling by car, stop to get out and move around at least once every 3 hours * On long airplane, train or bus rides, get up and move around when possible * If you can't get up, wiggle your toes and tighten your calves to keep your blood moving Follow Up: It is important for you to keep your follow up appointments with your medical provider. Current Hospital Diet Patient's current hospital diet: Low Fat Diet Discharge Diet Recommended Diet: Low Fat Diet Pending Studies Studies pending at discharge: no Laboratory Results Hemoglobin A1c Test 09/16/16 15:15 Range/Units Estimated Average Glucose 151 mg/dl Hemoglobin A1c 6.9 H 4.5-5.6 % Medical Emergencies . Who to Call and When: Medical Emergencies: If at any time you feel your situation is an emergency, please call 911 immediately. . Non-Emergent Contact Non-Emergency issues call your: Primary Care Provider, Town Manager, Oncologist, Surgeon . . "Provider Documentation" section prepared by Luis Raphael. . VTE Core Measure Inpt VTE Proph given/why not?: Other Anticoagulation Reason no anticoag overlap I/P: Treatment provided - N/A Reason no anticoag overlap @DC: Treatment provided - N/A
[2016-10-15] MEDS ORDERED: PANT40TA PO (13:54)
[2016-10-15] MEDS ORDERED: PHN25X PO (13:54)
[2016-10-15] MEDS ORDERED: NURSING VERBAL MED ORDER ONE (14:15)
[2016-10-15 14:28] VITALS: BP 111/60; PULSE 66; TEMP 36.8; O2SAT 94
[2016-10-15] MEDS ORDERED: ENOXAPARIN 120 MG/0.8 ML SYR SQ SCH ×2 (14:30→21:00)
--- NOTE | 2016-10-15 14:52 | Discharge Summary ---
Discharge Summary Date of Service Oct 15, 2016. Discharge Summary Admission Date: Oct 12, 2016 at 23:05 Discharge Date: Oct 15, 2016 Discharge Disposition: Home Principal Diagnosis: Recurrent PE history of ITP. Problems/Secondary Diagnoses: Borderline diminished gallbladder ejection fraction of 29%. 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 Medication Reconciliation New Medications: Pantoprazole (Protonix) 40 Mg Tab 40 MG PO DAILY, #30 Enoxaparin (Lovenox) 120 Mg/0.8 Ml Inj 111 MG SQ Q12 for 7 Days Lisinopril (Zestril) 10 Mg Tab 12.5 MG PO DAILY for 30 Days, #38 TAB Promethazine HCl (Promethazine HCl) 25 Mg Tab 25 MG PO Q6H PRN for Nausea or Vomiting for 10 Days, #40 TAB Warfarin Sod (Coumadin) 5 Mg Tab 5 MG PO DAILY@16 for 30 Days, TAB Continued Medications: Albuterol Hfa (Ventolin Hfa) 200 Puffs/36433 Mcg Aers 2 PUFFS INH Q4 PRN for SOB/Wheezing, #1 INHALER Atorvastatin (Lipitor) 40 Mg Tab 40 MG PO DAILY, TAB Cholecalciferol (Vitamin D 1000 Unit) 1,000 Unit Cap 1000 INTER.UNIT PO DAILY, CAP Fluticasone Furoate (Inhalatio (Arnuity Ellipta) 100 Mcg/Act Inh 1 INHA PO DAILY, #1 INHALER 2 Refills Insulin Isophane (Human) (Humulin N Kwikpen) 100 Unit/Ml Inj 18 UNITS SQ HS Metformin Hcl (Glucophage) 1,000 Mg Tab 1000 MG PO BID, TAB Metoprolol Succinate (Metoprolol Succinate ER) 25 Mg Tabcr 12.5 MG PO DAILY, #30 Multivitamins/Minerals (Mvi With Minerals) Tab 1 TAB PO DAILY, TAB Ocuvite Preservision (Ocuvite Preservision) 1 Tab Tab 1 TAB PO DAILY, TAB Pimozide (Pimozide) 2 Mg Tab 1 TAB PO BID, #90 Prednisolone Acetate (Prednisolone Acetate) 75 Drops/5 Ml Susp 1 DROPS OPB DAILY, #5 Discontinued Medications: Lisinopril (Lisinopril) 10 Mg Tab 10 MG PO DAILY, #90 Discharge Exam Minimal right upper quadrant pain, mild nausea, tolerate diet Review of Systems: Constitutional: No fever, No chills, No sweats, No weight loss, No weakness , No fatigue, No problem reported Eyes: No worsening of vision, No eye pain, No redness, No discharge, No diplopia, No problem reported ENT: No hearing loss, No unusual epistaxis, No nasal symptoms, No sore throat, No tinnitus, No dental problems, No trouble swallowing, No problem reported Respiratory: No cough, No sputum, No wheezing, No shortness of breath, No dyspnea on exertion, No dyspnea at rest, No hemoptysis, No problem reported Cardiovascular: No chest pain, No orthopnea, No PND, No edema, No claudication, No palpitations, No problem reported Abdomen: No pain, No nausea, No vomiting, No diarrhea, No constipation, No GI bleeding, No problem reported Musculoskeletal: No joint pain, No muscle pain, No swelling, No calf pain, No problem reported Genitourinary - Male: No hematuria, No dysuria, No urinary frequency, No urinary urgency, No urinary hesitancy, No urinary retention, No urinary incontinence, No penile discharge, No lesions, No impotence, No problem reported Neurologic: No memory loss, No paralysis, No weakness, No numbness/tingling , No vertigo, No balance problems, No problem reported Psychiatric: No depression symptoms, No anhedonism, No anxiety, No insomnia , No substance abuse, No problem reported Endocrine: No fatigue, No excessive thirst, No excessive urination, No problem reported Hematologic / Lymphatic: No abnormal bleeding/bruising, No clotting problems , No swollen lymph nodes, No night sweats, No problem reported Integumentary: No rash, No itch, No new/changing skin lesions, No color change, No bleeding, No problem reported Physical Exam: General Appearance: WD/WN, no apparent distress Eyes: normal inspection, PERRL, EOMI ENT: normal ENT inspection, hearing grossly normal, TMs normal Neck: supple Respiratory/Chest: chest non-tender, lungs clear, normal breath sounds, no respiratory distress Cardiovascular: regular rate, rhythm, no edema, no gallop, no JVD, no murmur , normal peripheral pulses Abdomen / GI: normal bowel sounds, non tender, soft Extremities: normal inspection, no calf tenderness, normal capillary refill , no pedal edema, normal range of motion 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 Per report he has recent history of diverticulitis approximately 1 month ago treated with antibiotics. He says that the pain never really got better in the suprapubic region. It seems to have just moved to the right lower quadrant. He denies any fever or chills. No bright red blood in his stool. He does note intermittent dark stools with diarrhea. right upper Abdominal pain ? gallbladder disease given strong family history, stable HIDA was done today 10/14/2016 per report 1. No evidence of acute cholecystitis. 2. Borderline diminished gallbladder ejection fraction of 29%. surgeon consulted no recommend or plan to procedure, continue Protonix by mouth daily, and meclizine for nausea edition as needed Recurrent PE hx of ITP. Stable, According to the patient's history, his last pulmonary embolus was associated with knee surgery. Start Coumadin, bridging with Lovenox 1 mg/kg, has detail instruction to have for at least 5 days overlapping, continue Lovenox until INR more than 2 Has discussed with patient about follow-up plan, Navigator has told me patient had to appointment with Coumadin clinic to follow-up PT/INR, I gave patient prescription for checking out PT/INR as well. Because it is weekend to make sure patient gets Lovenox, I did ordered " pharmacy to give 2 days of Lovenox for patient to home for intensive is not able to get medicine in the pharmacy Diabetes mellitus continue current medication History of asthma continue current medication history of A. fib-rate controlled, stable advance diet as tolerated GI does plan on doing endoscopy and colonoscopy, however they would prefer to wait until his PE is treated for 6 weeks Follow-up surgeon input for right upper quadrant abdominal pain Hematology consult appreciated. Given history of thrombocytopenia, begin Coumadin for the ease of reversal in case the patient does have bleeding, patient preferred follow-up Coumadin in hospital Coumadin clinic, appointment arranged by Navigator Discussed with , sister patient and , answered all the questions. Sister is a nurse practice in [employer] Instructions / Follow-Up you have right upper Abdominal pain No evidence of acute cholecystitis. Borderline diminished gallbladder ejection fraction of 29%. surgeon consulted no plan to procedure you have Recurrent PE hx of ITP. I am giving you Lovenox and coumadin, Lovenox at least need to be until 2016, and until INR >2 check INR on monday in coumadin clinic , appointment has been set up - you need to follow up with your primary care physician in 1 week, - take medication as instructed, never overdose or any misuse, or take with alcohol, because misuse of medicine may cause organ damage or , call your primary care physician if have questions of medicaitons. - call your primary care physician OR go to local emergency room if has any fever/chill, chest pain, shortness of breathing, nausea/vomiting/abdominal pain , facial droop/slurry speech/local weakness, or if has any questions. - fall precaution - diet as instructed - you need to follow up with your subspecialists such as oncologist, surgeon as instructed - you should understand that it is important to follow up the above instruction , and "not following the above instruction" may cause delayed or missed care of your medical conditions which may cause permanent organ damage and even . Total Time Spent: Greater than 30 minutes This includes examination of the patient, discharge planning, medication reconciliation, and communication with other providers. Discharge Instructions Please refer to the electronic Patient Visit Report (Discharge Instructions) for additional information. Additional Copies To Abhi Rowell D.O.Int.Med.
[2016-10-18] MEDS ORDERED: COEN100C7 (09:29)
[2016-10-18] MEDS ORDERED: CYAN100073 (09:29)
[2016-10-18] MEDS ORDERED: BIOT1CAP3 (09:29)
[2016-10-20] MEDS ORDERED: LSN10 PO (15:12)
[2016-10-20] MEDS ORDERED: SERT25TA PO (15:12)
[2016-10-24] MEDS ORDERED: WARF5TAB7 PO ×2 (14:54)
[2017-02-09] MEDS ORDERED: FURO-85 PO (12:30)
[2017-02-09] MEDS ORDERED: LIRA18IN SQ (12:30)
== END 2016-10-15 15:23 | disposition home or self-care (01) | DRG 444 ==
LOC: C.EDB 17:45 → C.MED 23:05 → ENRESERV 23:28
PROVIDERS: ADMIT Internal Medicine; ATTEND Hospitalist
DX: K82.8 Other specified diseases of gallbladder (principal); I26.99 Other pulmonary embolism without acute cor pulmonale; D69.3 Immune thrombocytopenic purpura; E11.9 Type 2 diabetes mellitus without complications; I11.9 Hypertensive heart disease without heart failure; I49.3 Ventricular premature depolarization; E78.5 Hyperlipidemia, unspecified; J45.909 Unspecified asthma, uncomplicated; Z79.899 Other long term (current) drug therapy; Z79.4 Long term (current) use of insulin; Z87.19 Personal history of other diseases of the digestive system; Z86.711 Personal history of pulmonary embolism; Z90.81 Acquired absence of spleen; Z94.7 Corneal transplant status; Z85.47 Personal history of malignant neoplasm of testis; Z96.653 Presence of artificial knee joint, bilateral; Z83.3 Family history of diabetes mellitus; Z82.49 Family history of ischemic heart disease and other diseases of the circulatory system

== ENCOUNTER → 2016-11-16 | Outpatient (CLI) | payer BC ==
[~2016-11-16] MED LIST changes: +BIOT1CAP3; -CIPR-255 PO; +COEN100C7; +CYAN100073; +FURO-85 PO; -LISI-461 PO; +LSN10 PO; -METR-163 PO; +MULT-190 PO; +PANT40TA PO; +PHN25X PO; +SERT25TA PO; +WARF5TAB7 PO
== END | disposition home or self-care (01) ==
LOC: C.LABSPEC 17:07
PROVIDERS: ATTEND Podiatrist Primary Podiatric Medicine
DX: B35.1 Tinea unguium (principal)

== ENCOUNTER → 2016-12-15 | Outpatient (CLI) | payer BC ==
[2016-12-15 17:48] LABS: BLOOD UREA NITROGEN 22 mg/dl (7-18); BUN/CREATININE RATIO 23.1 (10-20); CREATININE 0.95 mg/dl (0.60-1.40)
[2016-12-15 18:00] LABS: RATIO 10.4 mcg/mg (0-30.0)
[2016-12-16 07:29] LABS: ESTIMATED AVERAGE GLUCOSE 146 mg/dl; HA1C FLAG Normal (Normal)
== END | disposition home or self-care (01) ==
LOC: C.LAB1850 16:05
PROVIDERS: ATTEND Urology
DX: N28.89 Other specified disorders of kidney and ureter (principal); E11.9 Type 2 diabetes mellitus without complications; E78.5 Hyperlipidemia, unspecified; I10 Essential (primary) hypertension

== ENCOUNTER → 2016-12-28 | Outpatient (CLI) | payer BC ==
[~2016-12-28] MED LIST changes: +GADAVIST IV PRN
--- NOTE | 2016-12-28 13:30 | DIAGNOSTIC IMAGING REPORT ---
MRI OF THE ABDOMEN WITH AND WITHOUT CONTRAST RENAL MASS PROTOCOL CLINICAL HISTORY: Renal mass. COMPARISON STUDY: CT scans of the abdomen and pelvis September 16, 2016 and October 12, 2016. TECHNIQUE: Utilizing a 1.5 Corrie magnet and dedicated coil, multiplanar, multiecho imaging of the abdomen was performed pre and postcontrast administration. Post contrast imaging was performed utilizing dynamic enhancement. Injection of 11 cc of Gadavist IV was uneventful. FINDINGS: The previously described 2 cm lesion within the midpole of the right kidney represents a proteinaceous cyst. This is T1 hyperintense on the precontrast images and demonstrates no enhancement. Therefore, this is benign. Several T2 hyperintense nonenhancing left renal lesions are consistent with cysts as well. The largest is a 6 cm cyst within the upper pole of the left kidney. There are numerous subcentimeter bilateral renal lesions which are difficult to characterize given their size but likely reflect cysts as well. No enhancing renal lesion is present. There is no hydronephrosis. The spleen is surgically absent. The liver, adrenal glands and pancreas are unremarkable with the exception of a pancreas divisum deformity. There is no abdominal lymphadenopathy or ascites. A prior ventral hernia repair with mesh is noted. Caliber of visualized small and large bowel are normal. IMPRESSION: 2 cm right renal proteinaceous cyst. This corresponds to the lesion shown on prior CT of September 16, 2016. This lesion is benign. Numerous additional bilateral renal cysts, as described above. No enhancing renal lesions. Electronically signed by: Toni Box M.D. 12/28/2016 1:29 PM Dictated Date/Time: 12/28/2016 12:54 PM
== END | disposition home or self-care (01) ==
LOC: C.MRIBC 11:42
PROVIDERS: ATTEND Urology
DX: N28.1 Cyst of kidney, acquired (principal)

== ENCOUNTER → 2017-04-03 | Outpatient (CLI) | payer BC ==
[~2017-04-03] MED LIST changes: -GADAVIST IV PRN
[2017-04-03 15:34] LABS: BASO % 0.5 %; BASO ABS # 0.04 K/uL (0-0.2); COMPLETE YES; EOS % 2.4 %; HEMATOCRIT 42.4 % (42-52); IG% 0.7 %; LYMPH % 26.9 %; LYMPH ABS # 2.02 K/uL (1.2-3.4); MEAN CELL VOLUME 90.2 fL (80-100); MEAN CORPUSCULAR HEMOGLOBIN 30.6 pg (25-34); MEAN PLATELET VOLUME 10.4 fL (7.4-10.4); MONO % 7.6 %; NEUT % 61.9 %; PLATELET COUNT 202 K/uL (130-400)
== END | disposition home or self-care (01) ==
LOC: C.LAB1850 14:33
PROVIDERS: ATTEND Podiatrist Primary Podiatric Medicine
DX: Z79.899 Other long term (current) drug therapy (principal)

== ENCOUNTER → 2017-08-15 | Outpatient (CLI) | payer BC ==
[~2017-08-15] MED LIST changes: -PANT40TA PO
[2017-08-15 17:18] LABS: BLOOD UREA NITROGEN 15 mg/dl (7-18); CREATININE 1.03 mg/dl (0.60-1.40)
== END | disposition home or self-care (01) ==
LOC: C.LAB 15:57
PROVIDERS: ATTEND Nurse Practitioner Adult Health
DX: R31.9 Hematuria, unspecified (principal); N28.1 Cyst of kidney, acquired

== ENCOUNTER → 2017-08-31 | Outpatient (CLI) | payer BC ==
[~2017-08-31] MED LIST changes: +CETI10TA84 PO; +FLUT1INH3 INH; +GADAVIST IV PRN; +LISI10TA PO; +PRLSR20 PO
--- NOTE | 2017-08-31 09:57 | DIAGNOSTIC IMAGING REPORT ---
MRI OF THE ABDOMEN COMBO CLINICAL HISTORY: Right renal cyst. COMPARISON STUDY: Abdominal MRI dated 12/28/2016. Abdominal CT dated 10/12/2014 and 09/16/2016.. TECHNIQUE: MRI of the abdomen is performed utilizing various T1 and T2-weighted sequences in the axial and coronal planes. Contrast enhanced sequences were acquired following the IV administration of 11 cc of Gadavist. Subtraction imaging was utilized. FINDINGS: Lower chest: No pleural effusion is identified. The heart is normal in size. Liver: The liver is normal in size, contour, and signal intensity. No intrahepatic biliary ductal dilatation is seen. The hepatic veins and portal veins are patent. Gallbladder: Unremarkable. Spleen: The spleen is not identified and presumed surgically absent. Pancreas: Unremarkable. Adrenal glands: Unremarkable. Kidneys: The kidneys evidence of mild cortical atrophy and are without hydronephrosis. The kidneys enhance and excrete symmetrically. Simple cysts are seen bilaterally. The largest is present in the left upper pole and measures 5.4 cm. No enhancing renal cortical mass is seen. There is a 2.3 cm T1 hyperintense and T2 hyperintense lesion arising exophytically from the posterior interpolar right kidney. There is no associated postcontrast enhancement of this remains consistent with a proteinaceous cyst. Abdominal aorta: Normal in course and caliber. Bowel: Visualized portions of the small bowel and colon show no evidence of obstruction. There is moderate colonic fecal retention. Peritoneum: There is no abdominal ascites. There is evidence of previous ventral hernia repair. Lymphadenopathy: None. Skeletal structures: Visualized skeletal structures times are normal marrow signal intensity. A hemangioma is noted in the body of L4. IMPRESSION: 1. There as been no significant change in the appearance of a 2.3 cm proteinaceous cyst arising from the posterior interpolar right kidney as compared to prior studies. 2. No enhancing renal cortical mass is seen. Electronically signed by: Chente Gold M.D. 08/31/2017 9:56 AM Dictated Date/Time: 08/31/2017 9:47 AM
== END | disposition home or self-care (01) ==
LOC: C.MRI 08:34
PROVIDERS: ATTEND Urology
DX: N28.1 Cyst of kidney, acquired (principal)

== ENCOUNTER → 2017-09-11 | Day surgery (SDC) | payer BC ==
[2017-08-31 11:42] VITALS: BMI 33.0
[2017-08-31 13:27] LABS: BASO % 0.5 %; BASO ABS # 0.05 K/uL (0-0.2); EOS ABS # 0.18 K/uL (0-0.5); IG# 0.02 K/uL (0.00-0.02); LYMPH % 23.5 %; LYMPH ABS # 2.15 K/uL (1.2-3.4); MEAN CELL VOLUME 89.9 fL (80-100); MEAN CORPUSCULAR HEMOGLOBIN 30.7 pg (25-34); MEAN CORPUSCULAR HGB CONC 34.1 g/dl (32-36); MEAN PLATELET VOLUME 10.4 fL (7.4-10.4); MONO % 7.6 %; NEUT % 66.2 %; NEUT ABS # 6.06 K/uL (1.4-6.5); PLATELET COUNT 116 K/uL (130-400); RED CELL DISTRIBUTION WIDTH CV 13.4 % (11.5-14.5); RED CELL DISTRIBUTION WIDTH SD 44.1 fL (36.4-46.3); WHITE BLOOD COUNT 9.16 K/uL (4.8-10.8)
[2017-08-31 13:39] LABS: CALCIUM 8.3 mg/dl (8.5-10.1); CREATININE 0.97 mg/dl (0.60-1.40)
[~2017-09-11] VITALS: Ht 188 cm; Wt 118.4 kg
[~2017-09-11] MED LIST changes: +ATROPINE SULFATE 0.1 MG/ML 5ML SYR IV PRN; +CIPROFLOXACIN / D5W 400 MG IV SCH; +DEXAMETHASONE SOD INJ 4 MG/ML VIAL ONE; +EpHEDrine SULFATE INJ 50 MG/ML AMP IV PRN; +FENTANYL CITRATE INJ 50 MCG/1 ML 2 ML VIAL ONE; -FLUT1INH3 PO; -GADAVIST IV PRN; +GENTAMICIN INJ 120 MG in DEXTROSE 5% 100ML 100 ML IV SCH; +HYDROmorphone INJ 0.5 MG/0.5 ML SYR ONE; +HYDROmorphone INJ 2 MG/ML SYR/VIAL IV PRN; +LACTATED RINGER'S 1000ML 1,000 ML IV SCH; +LIDOCAINE HCL 2% 2 ML VIAL (20MG/ML) ONE; -LSN10 PO; +MIDAZOLAM HCL 1 MG/ML 2ML VIAL ONE; +ONDANSETRON INJ 2 MG/ML 2 ML VIAL IV PRN; +ONDANSETRON INJ 2 MG/ML 2 ML VIAL ONE; +OXYC-57 PO; +OXYCODONE/ACETAMINOPHEN 5-325 TAB PO PRN; +PHEN-775 PO; +PHENAZOPYRIDINE HCL 200 MG TAB PO ONE; +PHENAZOPYRIDINE HCL 200 MG TAB PO PRN; +PHENYLEPHRINE 100MCG/ML 5ML SYR IV PRN; -PHN25X PO; +PROPOFOL IV EMULSION 10 MG/ML 20 ML VIAL ONE; -SERT25TA PO; +SULF800T23 PO; +[UNRECOGNIZED DRUG - REMARK] SCH
[2017-09-11 10:22] VITALS: BP 173/93; PULSE 76; TEMP 36.5; O2SAT 95; Ht 188 cm; Wt 118.4 kg
[2017-09-11 10:32] LABS: INR 0.9 (0.9-1.1); PTT PATIENT 26.2 SECONDS (21.0-31.0)
--- NOTE | 2017-09-11 10:44 | History & Physical Bridge Note ---
H&P Re-Evaluation Bridge Note: I have examined the patient, reviewed the History & Physical and in the interval since the performance of the History & Physical I have noted the following changes of clinical significance: Stopped Coumadin per prescribing service.
--- NOTE | 2017-09-11 11:33 | [facility] Operative Report ---
Operative Report Operative Date September 11, 2017. Pre-Operative Diagnosis Bladder Tumor Post-Operative Diagnosis Bladder Tumor, 1.5 cm Procedure(s) Performed Cystoscopy, Transurethral Resection of Bladder Tumor, Cup Cup Biopsy of Bladder Tumor, Rollerball Fulgeration Surgeon Dr Lela Andres Motor Checker Surgeon(s) None Estimated Blood Loss 0CC Findings Right-sided bladder tumor resected without perforation of the bladder, no involvement of right ureteral orifice. No residual tumor noted. Specimens A: Transurethral Resection Biopsy of Right Bladder Tumor B: Cold Cup Biopsy of bladder Tumor Drains 18 Welsh Pickering with 10 cc of sterile water in the balloon. Anesthesia Type General Complication(s) none Disposition no Recovery Room / PACU Indications Patient is a pleasant 67-year-old male found to have of bladder tumor on office cystoscopy for gross hematuria. He is also recently undergone an MRI of the kidneys demonstrating a complex cyst but no suspicious lesions. He is here today for resection and management of his bladder tumor. Please see H&P for further details. Intravenous gentamicin is provided due to a reported history of ciprofloxacin allergy with GI upset. SCDs used for DVT prophylaxis. Description of Procedure Patient was properly identified and brought into the operative suite after identification for proper consent of the chart. General anesthesia with laryngeal mask was initiated and patient was prepped and draped in the standard fashion for this procedure. Full timeout procedure was followed. 26 Welsh monopolar resectoscope was passed into the bladder using a visual obturator and bladder was surveyed in its entirety. Obstructive prostate with lateral lobe hypertrophy was appreciated and within the bladder papillary changes to the right bladder mucosa consistent with urothelial malignancy is noted. This is unchanged from the patient's previous office cystoscopy. Using a monopolar loop to swipes were taken with apparent inclusion of muscle for more complete biopsies. The medial aspect of the tumor which was present closer to the ureteral orifice was sampled using cold cup biopsies 2. Minimal residual tumor was present with no evidence of perforation at this point. Generous and cautious rollerball cautery was performed to ensure excellent hemostasis and ablation of any residual abnormal mucosa. No evidence of any residual tumor or significant bleeding was noted after this was complete. Bladder was noted to be free of specimens which were correctly labeled. Bladder was partially distended and resectoscope was removed. 18 Welsh Pickering catheter was placed for short-term bladder rest prior to discharge home. Anesthesia was reversed the patient was transferred to the recovery room in stable condition. Follow-up CARE: Patient will be discharged home after trial of void today. Prescription for Bactrim, Percocet and Pyridium as provided. Postoperative appointments for pathology discussion are confirmed. Care is discussed with the patient's family per his request. I attest to the content of the Intraoperative Record and any orders documented therein. Any exceptions are noted below.
--- NOTE | 2017-09-11 11:34 | Discharge Instructions ---
Discharge Instructions Date of Service September 11, 2017. Admission Reason for Admission: Bladder Lesion Discharge Discharge Diagnosis / Problem: Bladder tumor s/p TURBT, cold cup biopsies and fulguration Discharge Goals Goal(s): Improve disease control, Diagnostic testing, Therapeutic intervention Activity Recommendations Activity Limitations: as noted below Lifting Limitations: no more than 25 pounds, gradually increase as tolerated Exercise/Sports Limitations: rest today, gradually increase as tolerated May Resume Sexual Activity: after follow-up appointment Shower/Bathe: no limitations Driving or Machine Use: resume 1 day after discharge . Instructions / Follow-Up Instructions / Follow-Up As scheduled in office for pathology discussion and postoperative check. Current Hospital Diet Patient's current hospital diet: Discharge Diet Recommended Diet: Regular Diet (good fluid intake) Procedures Procedures Performed: Cystoscopy, Transurethral Resection of Bladder Tumor, Cup Cup Biopsy of Bladder Tumor, Rollerball Fulgeration Pending Studies Studies pending at discharge: yes List of pending studies: Pathology report Medical Emergencies . Who to Call and When: Medical Emergencies: If at any time you feel your situation is an emergency, please call 911 immediately. . Non-Emergent Contact Non-Emergency issues call your: Urologist Call Non-Emergent contact if: you have a fever, temperature is above 101, your pain is not controlled, your pain is worsening, your pain is unusual for you, your pain is concerning you, you have any medication questions . . "Provider Documentation" section prepared by Mac Andres. . [place] Drug Monitoring Program Search Results: patient reviewed within database, no issues identified
--- NOTE | 2017-09-11 12:24 | Anesthesiology Progress Note ---
Anesthesia Post Op Note Date & Time September 11, 2017 at 12:24 Vital Signs Pain Intensity: 1 Vital Signs Past 12 Hours Date Time Temp Pulse Resp B/P (MAP) Pulse Ox O2 Delivery O2 Flow Rate FiO2 09/11/17 12:15 74 18 132/81 92 09/11/17 12:15 75 18 09/11/17 12:11 37.1 76 18 132/81 (102) 94 Room Air 09/11/17 12:10 78 16 09/11/17 12:10 79 16 137/84 90 09/11/17 12:09 76 20 93 09/11/17 12:09 76 20 09/11/17 12:05 135/83 09/11/17 12:04 76 13 93 09/11/17 12:04 77 13 09/11/17 12:00 134/80 09/11/17 11:59 74 19 09/11/17 11:59 74 19 94 09/11/17 11:58 77 20 94 09/11/17 11:58 77 20 09/11/17 11:57 76 23 94 09/11/17 11:57 76 23 09/11/17 11:55 139/80 09/11/17 11:52 77 21 96 09/11/17 11:52 77 21 09/11/17 11:50 143/79 09/11/17 11:47 75 14 98 09/11/17 11:47 77 14 09/11/17 11:45 132/79 09/11/17 11:42 75 15 09/11/17 11:42 75 15 98 09/11/17 11:40 142/80 09/11/17 11:37 88 12 137/84 (101) 98 09/11/17 11:37 80 16 137/84 98 09/11/17 11:37 78 16 09/11/17 10:22 36.5 76 20 173/93 (119) 95 Room Air Notes Mental Status: alert / awake / arousable, participated in evaluation Pt Amnestic to Procedure: Yes Nausea / Vomiting: adequately controlled Pain: adequately controlled Airway Patency, RR, SpO2: stable & adequate BP & HR: stable & adequate Hydration State: stable & adequate Anesthetic Complications: no major complications apparent
[2017-09-11 12:37] VITALS: BP 135/72; PULSE 72; TEMP 36.7; O2SAT 95
[2017-09-11 13:08] VITALS: BP 145/96; PULSE 76; O2SAT 96
[2017-09-11 13:40] VITALS: BP 124/67; PULSE 79; TEMP 37.1; O2SAT 94
== END | disposition home or self-care (01) ==
LOC: C.ACU 09:55
PROVIDERS: ATTEND Urology
DX: C67.9 Malignant neoplasm of bladder, unspecified (principal); I10 Essential (primary) hypertension; J45.909 Unspecified asthma, uncomplicated; E11.9 Type 2 diabetes mellitus without complications; F41.9 Anxiety disorder, unspecified; E78.5 Hyperlipidemia, unspecified; E66.9 Obesity, unspecified; Z88.1 Allergy status to other antibiotic agents; Z91.013 Allergy to seafood; Z86.718 Personal history of other venous thrombosis and embolism; Z98.890 Other specified postprocedural states; Z90.89 Acquired absence of other organs; Z96.659 Presence of unspecified artificial knee joint; Z79.899 Other long term (current) drug therapy; Z79.01 Long term (current) use of anticoagulants; Z79.84 Long term (current) use of oral hypoglycemic drugs; Z79.4 Long term (current) use of insulin; Z82.49 Family history of ischemic heart disease and other diseases of the circulatory system; Z83.3 Family history of diabetes mellitus

== ENCOUNTER → 2017-12-06 | Outpatient (CLI) | payer BC ==
[~2017-12-06] MED LIST changes: +ACET-1256 PO; -ATROPINE SULFATE 0.1 MG/ML 5ML SYR IV PRN; -BIOT1CAP3; +BIOT1CAP3 PO; -CHOL100027 PO; +CHOL1TAB76 PO; -CIPROFLOXACIN / D5W 400 MG IV SCH; -DEXAMETHASONE SOD INJ 4 MG/ML VIAL ONE; -EpHEDrine SULFATE INJ 50 MG/ML AMP IV PRN; -FENTANYL CITRATE INJ 50 MCG/1 ML 2 ML VIAL ONE; -FLUT1INH3 INH; +FLUT1INH5 INH; -GENTAMICIN INJ 120 MG in DEXTROSE 5% 100ML 100 ML IV SCH; -HYDROmorphone INJ 0.5 MG/0.5 ML SYR ONE; -HYDROmorphone INJ 2 MG/ML SYR/VIAL IV PRN; -LACTATED RINGER'S 1000ML 1,000 ML IV SCH; -LIDOCAINE HCL 2% 2 ML VIAL (20MG/ML) ONE; -MIDAZOLAM HCL 1 MG/ML 2ML VIAL ONE; -ONDANSETRON INJ 2 MG/ML 2 ML VIAL IV PRN; -ONDANSETRON INJ 2 MG/ML 2 ML VIAL ONE; -OXYCODONE/ACETAMINOPHEN 5-325 TAB PO PRN; -PHEN-775 PO; -PHENAZOPYRIDINE HCL 200 MG TAB PO ONE; -PHENAZOPYRIDINE HCL 200 MG TAB PO PRN; -PHENYLEPHRINE 100MCG/ML 5ML SYR IV PRN; -PROPOFOL IV EMULSION 10 MG/ML 20 ML VIAL ONE; -SULF800T23 PO; -[UNRECOGNIZED DRUG - REMARK] SCH
--- NOTE | 2017-12-06 11:44 | DIAGNOSTIC IMAGING REPORT ---
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 A dose lowering technique was utilized adhering to the principles of ALARA. COMPARISON STUDY: 10/12/2016 FINDINGS: Lung bases are clear. Liver spleen and pancreas appear unremarkable. The left kidney is negative for hydronephrosis. Several renal cysts are present measuring 2.9 cm. The adrenal glands bilaterally are within normal limits. The right kidney demonstrates a 2.2 cm exophytic hyperdense nodule posterior aspect upper lobe right kidney. This most likely represents hyperdense cyst. Kidneys are considered negative for calcification or hydronephrosis. Bowel pattern is nonobstructive. Findings of mild chronic colonic diverticulosis. No evidence for acute diverticulitis. Bladder is midline. IMPRESSION: 1. Chronic colonic diverticulosis. 2. No evidence for acute diverticulitis. 3. Bilateral renal cysts unchanged. 4. Otherwise negative study. The above report was generated using voice recognition software. It may contain grammatical, syntax or spelling errors. Electronically signed by: Jaziel Mishra M.D. 12/06/2017 11:43 AM Dictated Date/Time: 12/06/2017 11:37 AM
== END | disposition home or self-care (01) ==
LOC: C.CTS 11:10
PROVIDERS: ATTEND Urology
DX: N20.0 Calculus of kidney (principal); K57.32 Diverticulitis of large intestine without perforation or abscess without bleeding

== ENCOUNTER 2017-12-30 17:58 | Emergency (ER) | payer BC ==
[~2017-12-30] VITALS: Ht 188 cm; Wt 116.2 kg
[~2017-12-30 17:58] MED LIST changes: -COEN100C7; +COEN100C7 PO; -CYAN100073; +CYAN100073 PO
[2017-12-30 18:03] VITALS: Ht 188 cm; Wt 116.2 kg
[2017-12-30] MEDS ORDERED: ACETAMINOPHEN 325 MG TAB PO STA (18:15)
[2017-12-30] MEDS ORDERED: SODIUM CHLORIDE 0.9% 1000ML 1,000 ML IV STA (18:15)
[2017-12-30] MEDS ORDERED: ONDANSETRON INJ 2 MG/ML 2 ML VIAL IV STA (18:15)
--- NOTE | 2017-12-30 18:22 | EMERGENCY ROOM VISIT NOTE ---
History Report prepared by Perry: Ambrocio Figueroa Under the Supervision of: Dr. Barney Santana M.D. First contact with patient: 18:07 Chief Complaint: WEAKNESS Stated Complaint: WEAKNESS, NOT FEELING WELL,STOMACH ISSUES History of Present Illness The patient is a 67 year old white male with a past medical history of asthma, diabetes, hypertension, ITP, pneumonia, PE, diverticulitis, bladder tumor, and kidney stone with lithotripsy who presents to the Emergency Room with complaints of worsening weakness that began on Monday, 3 days ago. The patient's at bedside states that in October the patient had a tumor removed from his bladder. On Monday, 3 days ago the patient had a 3 month follow-up from that procedure. He was given an "orange pill" following this visit and he lost it and did not take it. The patient denies any other cough, abdominal pain , rashes, nausea, vomiting, chest pain, or lower extremity swelling. He does note some shortness of breath as well as a runny nose. Source of History: patient Onset: 3 days ago Position: other (bladder tumor removal) Quality: other (weakness) Timing: worsening Associated Symptoms: + SOB Review of Systems See HPI for pertinent positives and negatives. A total of ten systems were reviewed and were otherwise negative. Past Medical & Surgical Medical Problems: (1) Asthma (2) Diabetes (3) Hypertension (4) ITP (idiopathic thrombocytopenic purpura) (5) Pneumonia (6) Pulmonary embolism (7) sigmoid diverticulitis , spleen abscent (8) sigmoid diverticulitis , spleen abscent Surgical Problems: (1) History of cornea transplant (2) History of hernia surgery (3) History of knee replacement Family History Cancer Diabetes mellitus Heart disease Hypertension Social History Smoking Status: Never Smoker Alcohol Use: occasionally Drug Use: none Marital Status: Housing Status: lives with significant other Occupation Status: employed Current/Historical Medications Scheduled Atorvastatin (Lipitor), 40 MG PO QAM Biotin (Biotin), 5,000 TAB PO QAM Cephalexin (Keflex), 1 CAP PO BID Cetirizine (Zyrtec), 10 MG PO HS Cholecalciferol (D 2000), 2,000 UNITS PO DAILY Coenzyme Q10 (Ubidecarenone) (Coq10), 100 MG PO QAM Cyanocobalamin (B12), 1,000 MCG PO QAM Furosemide (Lasix), 20 MG PO 5XWK Insulin Isophane (Human) (Humulin N Kwikpen), 30 UNITS SQ HS Liraglutide (Victoza), 18 UNITS SQ QAM Lisinopril (Prinivil), 10 MG PO QAM Metformin Hcl (Glucophage), 1,000 MG PO BID Metoprolol Succinate (Metoprolol Succinate ER), 50 MG PO QAM Multivitamins/Minerals (Mvi With Minerals), 1 TAB PO QAM Ocuvite Preservision (Ocuvite Preservision), 1 TAB PO BID Omeprazole (Prilosec), 40 MG PO QAM Prednisolone Acetate (Prednisolone Acetate), 1 DROPS OPB QAM Warfarin Sodium (Coumadin), 7.5 MG PO Q2D Warfarin Sodium (Coumadin), 5 MG PO Q2D Scheduled PRN Acetaminophen (Tylenol), 1,500 MG PO DAILY PRN for Pain Albuterol Hfa (Ventolin Hfa), 2 PUFFS INH Q4 PRN for SOB/Wheezing Fluticasone Furoate (Inhalatio (Arnuity Ellipta), 1 PUFF INH DAILY PRN for SOB/ Wheezing Allergies Coded Allergies: Snail Extract (Verified Allergy, Severe, Anaphylaxis - snails, 10/06/17) Cat Dander (Verified Allergy, Unknown, shortness of breath, 10/06/17) Ragweed (Verified Allergy, Unknown, shortness of breath, 10/06/17) Ciprofloxacin (Verified Adverse Reaction, Intermediate, Severe burning stomach, 10/06/17) Physical Exam Vital Signs Date Time Temp Pulse Resp B/P (MAP) Pulse Ox O2 Delivery O2 Flow Rate FiO2 12/30/17 20:57 36.9 97 18 126/78 94 12/30/17 19:53 36.9 101 19 108/74 93 Room Air 12/30/17 18:57 107 12/30/17 18:03 37.9 119 20 157/79 93 Room Air Physical Exam GENERAL: Awake, alert, well-appearing, NAD HENT: Normocephalic, atraumatic. EYES: Normal conjunctiva. Sclera non-icteric. PERRL. No anisocoria. NECK: Supple. No nuchal rigidity. FROM. RESPIRATORY: CTAB, no rhonchi, wheezing, crackles CARDIAC: Tachycardic rate and regular rhythm, no MRG ABDOMEN: Soft, NTND, BS+ MSK: No chest wall TTP, no LE edema, negative Santa's sign, no calf pain. NEURO: GCS 15, CN 2-12 intact, moves all 4s on command SKIN: No rash or jaundice noted. Medical Decision & Procedures ER Provider Diagnostic Interpretation: Radiology results as stated below per my review and radiologist interpretation: CHEST ONE VIEW PORTABLE CLINICAL HISTORY: Pain, radiating to the abdomen. COMPARISON STUDY: 02/19/2015 FINDINGS: The cardiac and mediastinal contours are normal. There is no evidence of focal pulmonary consolidation. There is no evidence of failure. No pleural effusions are visualized.[ There is a left basilar subsegmental atelectatic changes. There is no free intraperitoneal air. IMPRESSION: No active disease in the chest. Electronically signed by: Asif Ruiz M.D. 12/30/2017 6:31 PM Dictated Date/Time: 12/30/2017 6:31 PM Laboratory Results 12/30/17 18:40 Red Blood Count 4.58, Mean Corpuscular Volume 89.3, Mean Corpuscular Hemoglobin 31.4, Mean Corpuscular Hemoglobin Concent 35.2, Mean Platelet Volume 10.9, Neutrophils (%) (Auto) 87.5, Lymphocytes (%) (Auto) 4.1, Monocytes (%) (Auto) 7.9, Eosinophils (%) (Auto) 0.0, Basophils (%) (Auto) 0.1, Neutrophils # (Auto) 16.11, Lymphocytes # (Auto) 0.76, Monocytes # (Auto) 1.46, Eosinophils # (Auto) 0.00, Basophils # (Auto) 0.02 12/30/17 18:40 Test 12/30/17 18:20 12/30/17 18:40 Urine Color DK YELLOW Urine Appearance CLEAR (CLEAR) Urine pH 5.0 (4.5-7.5) Urine Specific [place] 1.024 (1.000-1.030) Urine Protein 1+ (NEG) Urine Glucose (UA) NEG (NEG) Urine Ketones 1+ (NEG) Urine Occult Blood 2+ (NEG) Urine Nitrite POS (NEG) Urine Bilirubin NEG (NEG) Urine Urobilinogen NEG (NEG) Urine Leukocyte Esterase SMALL (NEG) Urine WBC (Auto) 10-30 /hpf (0-5) Urine RBC (Auto) 0-4 /hpf (0-4) Urine Hyaline Casts (Auto) 5-10 /lpf (0-5) Urine Epithelial Cells (Auto) 0-5 /lpf (0-5) Urine Bacteria (Auto) 4+ (NEG) White Blood Count 18.42 K/uL (4.8-10.8) Red Blood Count 4.58 M/uL (4.7-6.1) Hemoglobin 14.4 g/dL (14.0-18.0) Hematocrit 40.9 % (42-52) Mean Corpuscular Volume 89.3 fL (80-100) Mean Corpuscular Hemoglobin 31.4 pg (25-34) Mean Corpuscular Hemoglobin Concent 35.2 g/dl (32-36) Platelet Count 54 K/uL (130-400) Mean Platelet Volume 10.9 fL (7.4-10.4) Neutrophils (%) (Auto) 87.5 % Lymphocytes (%) (Auto) 4.1 % Monocytes (%) (Auto) 7.9 % Eosinophils (%) (Auto) 0.0 % Basophils (%) (Auto) 0.1 % Neutrophils # (Auto) 16.11 K/uL (1.4-6.5) Lymphocytes # (Auto) 0.76 K/uL (1.2-3.4) Monocytes # (Auto) 1.46 K/uL (0.11-0.59) Eosinophils # (Auto) 0.00 K/uL (0-0.5) Basophils # (Auto) 0.02 K/uL (0-0.2) RDW Standard Deviation 43.1 fL (36.4-46.3) RDW Coefficient of Variation 13.3 % (11.5-14.5) Immature Granulocyte % (Auto) 0.4 % Immature Granulocyte # (Auto) 0.07 K/uL (0.00-0.02) Platelet Estimate DECREASED Price-[place] Bodies 1+ Acanthocytes 1+ Prothrombin Time 34.2 SECONDS (9.0-12.0) Prothromb Time International Ratio 3.3 (0.9-1.1) Anion Gap 10.0 mmol/L (3-11) Est Creatinine Clear Calc Drug Dose 87.5 ml/min Estimated GFR () 80.7 Estimated GFR (Non- 69.7 BUN/Creatinine Ratio 18.8 (10-20) Calcium Level 8.4 mg/dl (8.5-10.1) Phosphorus Level 1.9 mg/dl (2.5-4.9) Magnesium Level 1.6 mg/dl (1.8-2.4) Total Bilirubin 0.6 mg/dl (0.2-1) Direct Bilirubin 0.2 mg/dl (0-0.2) Aspartate Amino Transf (AST/SGOT) 14 U/L (15-37) Alanine Aminotransferase (ALT/SGPT) 17 U/L (12-78) Alkaline Phosphatase 98 U/L (45-117) Total Protein 7.5 gm/dl (6.4-8.2) Albumin 3.8 gm/dl (3.4-5.0) Lipase 137 U/L (73-393) Laboratory results reviewed by me Medications Administered Medications (Trade) Dose Ordered Sig/Jadon Route Start Time Stop Time Status Last Admin Dose Admin Sodium Chloride 1,000 ml @ 999 mls/hr Q1H1M STAT IV 12/30/17 18:15 12/30/17 19:15 DC 12/30/17 18:53 999 MLS/HR Ondansetron HCl (Zofran Inj) 4 mg NOW STAT IV 12/30/17 18:15 12/30/17 18:17 DC 12/30/17 18:54 4 MG Acetaminophen (Tylenol Tab) 650 mg NOW STAT PO 12/30/17 18:15 12/30/17 18:17 DC 12/30/17 18:54 650 MG Magnesium Oxide (Mag-Ox Tab) 800 mg ONE STAT PO 12/30/17 19:35 12/30/17 19:36 DC 12/30/17 19:58 800 MG Potassium/ Phosphorus/Sodium (Phospha 250 Neutral 155-852-130 Mg) 2 tab ONE STAT PO 12/30/17 19:35 12/30/17 19:36 DC 12/30/17 19:58 2 TAB Calcium Carbonate (Tums Chew Tab) 1,500 mg ONE STAT PO 12/30/17 19:35 12/30/17 19:36 DC 12/30/17 19:58 1,500 MG Ceftriaxone Sodium (Rocephin Inj) 1 gm NOW STAT IV 8/25/18 19:35 12/30/17 19:36 DC 12/30/17 19:57 1 GM ECG Per My Interpretation Indication: other (Weakness) Rate (beats per minute): 110 Rhythm: sinus tachycardia Findings: other (Normal interval, RAD, No STS changes or TWI. ) ED Course 1808: The patient was evaluated in room C9. A complete history and physical exam was performed. 2035: I reevaluated the patient. Discussed results and discharge instructions: He verbalized understanding and agreement. The patient is ready for discharge. Medical Decision The patient is a 67 year old white male with a past medical history of asthma, diabetes, hypertension, ITP, pneumonia, PE, diverticulitis, bladder tumor, and kidney stone with lithotripsy who presents to the Emergency Room with complaints of worsening weakness that began on Monday, 3 days ago. Nursing notes reviewed. Ancillary studies and prior records reviewed. Differential diagnosis: Etiologies such as viral syndrome, otitis, pharyngitis, pneumonia, influenza, meningitis, urinary tract infection, sepsis, bacteremia, as well as others were entertained. Patient was seen and evaluated the bedside. The patient poorly just has not been feeling himself. Patient denies any other acute symptomatically planes. Of note the patient did have a recent cystoscopy completed on Monday. The patient does see Dr. Andres and Dr. Perez. Patient does not have a remarkable exam with exception of some tachycardia. The patient was febrile. Patient did have blood work completed, EKG, troponin, chest x-ray, urinalysis. Patient given IV fluids and Tylenol. Patient's blood work does show an elevated white blood cell count. Also of note the patient does have some relative thrombocytopenia 54,000. I did convey this to the patient the patient states that she this does happen during illness and he does have a history of ITP. I did state to the patient that he should be mindful and wary of signs concerning for low platelet count which may include petechiae appropriate easy bruising epistaxis or gingival bleeding. The patient was feeling much improved upon reassessment. I believe the patient is suitable for outpatient follow-up and treatment at this time. I did caution the patient that if he does not feel improved within the next 24-48 hours she should consider returning for further evaluation and treatment. Patient was given strict follow-up, discharge, and return precautions. All questions were answered. Patient was deemed suitable for outpatient follow-up at this time. Patient agreed with the plan of care and was safely discharged home. Medication Reconcilliation Current Medication List: was personally reviewed by me Blood Pressure Screening Patient's blood pressure: Elevated blood pressure Blood pressure disposition: Elevated BP felt to be situational Impression Primary Impression: UTI (urinary tract infection) Additional Impressions: Thrombocytopenia Hypocalcemia Hypophosphatemia Hypomagnesemia Scribe Attestation The scribe's documentation has been prepared under my direction and personally reviewed by me in its entirety. I confirm that the note above accurately reflects all work, treatment, procedures, and medical decision making performed by me. Departure Information Dispostion Home / Self-Care Prescriptions Cephalexin (KEFLEX) 500 Mg Cap 1 CAP PO BID for 7 Days, #14 CAP Prov: Barney Santana M.D. 12/30/17 Referrals Dequan Phipps MD (PCP) Patient Instructions ED UTI Cystitis Male, My [facility] Additional Instructions Please return to the emergency department if you have worsening or recurrent symptoms not amenable to at-home treatment. Please call for a follow-up appointment with her primary care physician. Please take your medications as prescribed. If you have other concerns and/or complaints please feel free to also call your primary care physician's office or return the ED for further evaluation, management, and treatment. You may take tylenol 650 mg every 6 hours as needed for pain/fever unless told by your physician to not take it or have liver problems. Take your medications as prescribed. If taking an antibiotic consider taking a probiotic and/or eating yogurt, but at the least, please take with food as it can cause upset stomach. You have been examined and treated today on an emergency basis only. This is not a substitute for, or an effort to provide, complete comprehensive medical care. It is impossible to recognize and treat all injuries or illnesses in a single emergency department visit. It is therefore important that you follow up closely with [facility], your PCP, and/or your specialist(s). Call as soon as possible for an appointment. Thank you for your time and consideration. I look forward to speaking with you again soon. Please don't hesitate to call us if you have any questions. Problem Qualifiers Primary Impression: UTI (urinary tract infection) Urinary tract infection type: acute cystitis Hematuria presence: with hematuria Qualified Codes: N30.01 - Acute cystitis with hematuria
--- NOTE | 2017-12-30 18:33 | DIAGNOSTIC IMAGING REPORT ---
CHEST ONE VIEW PORTABLE CLINICAL HISTORY: Pain, radiating to the abdomen. COMPARISON STUDY: 02/19/2015 FINDINGS: The cardiac and mediastinal contours are normal. There is no evidence of focal pulmonary consolidation. There is no evidence of failure. No pleural effusions are visualized.[ There is a left basilar subsegmental atelectatic changes. There is no free intraperitoneal air. IMPRESSION: No active disease in the chest. Electronically signed by: Asif Ruiz M.D. 12/30/2017 6:31 PM Dictated Date/Time: 12/30/2017 6:31 PM
[2017-12-30 19:15] LABS: ALBUMIN 3.8 gm/dl (3.4-5.0); CALCIUM 8.4 mg/dl (8.5-10.1); CREATININE 1.08 mg/dl (0.60-1.40); PHOSPHORUS 1.9 mg/dl (2.5-4.9); POTASSIUM 3.8 mmol/L (3.5-5.1); TOTAL PROTEIN 7.5 gm/dl (6.4-8.2)
[2017-12-30 19:35] LABS: HEMATOCRIT 40.9 % (42-52); HEMOGLOBIN 14.4 g/dL (14.0-18.0); MEAN CELL VOLUME 89.3 fL (80-100); MEAN CORPUSCULAR HEMOGLOBIN 31.4 pg (25-34); MEAN CORPUSCULAR HGB CONC 35.2 g/dl (32-36); MEAN PLATELET VOLUME 10.9 fL (7.4-10.4); PLATELET COUNT 54 K/uL (130-400); RED CELL DISTRIBUTION WIDTH CV 13.3 % (11.5-14.5); RED CELL DISTRIBUTION WIDTH SD 43.1 fL (36.4-46.3); WHITE BLOOD COUNT 18.42 K/uL (4.8-10.8)
[2017-12-30] MEDS ORDERED: CALCIUM CARBONATE 500 MG CHEWABLE PO STA (19:35)
[2017-12-30] MEDS ORDERED: MAGNESIUM OXIDE 400 MG TAB PO STA (19:35)
[2017-12-30] MEDS ORDERED: CEFTRIAXONE SOD INJ 1 GM ADDVIAL IV STA (19:35)
[2017-12-30] MEDS ORDERED: POT PHOSPHATE MONOBASIC W/ SOD TAB PO STA (19:35)
[2017-12-30 19:38] LABS: BASO % 0.1 %; BASO ABS # 0.02 K/uL (0-0.2); IG# 0.07 K/uL (0.00-0.02); LYMPH % 4.1 %; LYMPH ABS # 0.76 K/uL (1.2-3.4); MONO % 7.9 %; MONO ABS # 1.46 K/uL (0.11-0.59); NEUT % 87.5 %; NEUT ABS # 16.11 K/uL (1.4-6.5)
[2017-12-30] MEDS ORDERED: WARF7.5T PO (19:59)
[2017-12-30] MEDS ORDERED: WARF5TAB90 PO (20:00)
[2017-12-30] MEDS ORDERED: CEPH-571 PO (20:33)
[2017-12-30 20:54] LABS: INR 3.3 (0.9-1.1)
[2017-12-30 20:57] VITALS: BP 126/78; PULSE 97; TEMP 36.9; O2SAT 94
--- NOTE | 2018-01-01 19:05 | Pharmacy Progress Note ---
ED Pharmacist Culture FollowUp Date of Service: Jan 01, 2018. Patient was sent home with a prescription for cephalexin, which should cover the E. coli growing from the patient's urine culture.
== END 2017-12-30 20:53 | disposition home or self-care (01) ==
LOC: C.EDB 18:00 → C.EDC 20:53
DX: N30.01 Acute cystitis with hematuria (principal); D69.3 Immune thrombocytopenic purpura; E83.51 Hypocalcemia; E83.39 Other disorders of phosphorus metabolism; E83.42 Hypomagnesemia; J45.909 Unspecified asthma, uncomplicated; E11.9 Type 2 diabetes mellitus without complications; I10 Essential (primary) hypertension; Z86.711 Personal history of pulmonary embolism; Z79.4 Long term (current) use of insulin; Z79.84 Long term (current) use of oral hypoglycemic drugs; Z79.01 Long term (current) use of anticoagulants; Z79.899 Other long term (current) drug therapy; Z91.048 Other nonmedicinal substance allergy status; Z88.1 Allergy status to other antibiotic agents